=== PATIENT | female | born 1955 | race Caucasian/White ===

== ENCOUNTER 2018-03-24 11:39 | Inpatient (IN) | payer BC ==
[2018-03-24 11:51] VITALS: BMI 26.5
[2018-03-24] MEDS ORDERED: Sodium Chloride 0.9% 1,000 ML IV STA (12:18)
--- NOTE | 2018-03-24 12:38 | ED PDOC ---
Arrival/HPI - General Chief Complaint: Dizziness/Lightheaded Time Seen by Provider: 03/24/18 11:52 Historian: Patient - History of Present Illness Narrative History of Present Illness (Text): 03/24/18 12:13 A 62 year old female, whose past medical history includes hypertension and CAD, presents to the emergency department complaining of toothache. Patient reports has not been able to eat/drink due to pain. States having called her dentist and dentist prescribed medication and Lidocaine Gel for pain. Notes also experiencing dizziness when standing for a while. Patient denies any fever, chills, shortness of breath, chest pain, or any other complaints. Also, patient currently not experiencing tooth pain at this time. Mentions will have upper right molar tooth in the back of teeth pulled out next week. No PMD Past Medical History - Provider Review Nursing Documentation Reviewed: Yes - Infectious Disease Hx of Infectious Diseases: None - Tetanus Immunization Tetanus Immunization: Unknown - Reproductive Menopause: Yes - Cardiac Hx Pacemaker: No - Pulmonary Hx Respiratory Disorders: Yes (PLEURAL EFFUSION) - Neurological Hx Paralysis: No - HEENT Hx Difficulty Chewing: No - Renal Hx Renal Disorder: Yes Other/Comment: bladder stones - Endocrine/Metabolic Hx Endocrine Disorders: No - Hematological/Oncological Hx Anemia: Yes Hx Blood Transfusions: No - Integumentary Hx Dermatological Disorder: Yes Hx Psoriasis: Yes - Musculoskeletal/Rheumatological Hx Musculoskeletal Disorders: No - Gastrointestinal Hx Gastrointestinal Disorders: Yes (ASCITES) - Genitourinary/Gynecological Hx Genitourinary Disorders: No - Psychiatric Hx Emotional Abuse: No Hx Physical Abuse: No Hx Substance Use: No - Surgical History Other/Comment: colonoscopy - Anesthesia Hx Anesthesia Reactions: Yes (NAUSEA WEAKNESS;"WOKE UP DURING C SECTION") Hx Malignant Hyperthermia: No - Suicidal Assessment Feels Threatened In Home Enviroment: No Family/Social History - Physician Review Nursing Documentation Reviewed: Yes Family/Social History: No Known Family HX Smoking Status: Never Smoked Hx Alcohol Use: Yes ("GLASS OF WINE ON WEEKENDS") Hx Substance Use: No Hx Substance Use Treatment: No Allergies/Home Meds Allergies/Adverse Reactions: Allergies No Known Allergies Allergy (Verified 02/02/15 13:20) Home Medications: Home Meds Medication Instructions Recorded Confirmed Ascorbic Acid [Vitamin C 500 mg 1 tab PO DAILY 03/24/18 03/24/18 Tab] Furosemide [Lasix] 1 tab PO BID 03/24/18 03/24/18 Ibuprofen [Motrin Tab] 1 tab PO Q8H 03/24/18 03/24/18 Lidocaine Hydrochloride [Lidocaine 1 tsp PO PRN PRN 03/24/18 03/24/18 Hydrochloride Jelly 2% 5 ml] Sotalol [Betapace] 1 tab PO BID 03/24/18 03/24/18 Review of Systems - Physician Review All systems were reviewed & negative as marked: Yes - Review of Systems Constitutional: Other (toothache (currently not at this time here in the ER)). absent: Fevers, Night Sweats Respiratory: absent: SOB Cardiovascular: absent: Chest Pain Neurological: Dizziness (not room spinning sensation) Physical Exam Vital Signs Reviewed: Yes Vital Signs Temp Pulse Resp BP Pulse Ox 03/24/18 14:52 98 F 85 18 122/71 95 03/24/18 14:35 98 F 85 18 122/71 03/24/18 14:11 97.6 F 86 18 119/79 03/24/18 13:37 88 18 123/79 97 03/24/18 11:50 98.2 F 86 18 112/77 98 Temperature: Afebrile Blood Pressure: Normal Pulse: Regular Respiratory Rate: Normal Appearance: Positive for: Well-Appearing Pain Distress: None Mental Status: Positive for: Alert and Oriented X 3 - Systems Exam Head: Present: Atraumatic, Normocephalic Pupils: Present: PERRL Extroacular Muscles: Present: EOMI Conjunctiva: Present: Normal Mouth: Present: Moist Mucous Membranes Neck: Present: Normal Range of Motion Respiratory/Chest: Present: Clear to Auscultation, Good Air Exchange. No: Respiratory Distress, Accessory Muscle Use Cardiovascular: Present: Regular Rate and Rhythm, Normal S1, S2. No: Murmurs Abdomen: No: Tenderness, Distention, Peritoneal Signs Back: Present: Normal Inspection Upper Extremity: Present: Normal Inspection. No: Cyanosis, Edema Lower Extremity: Present: Normal Inspection. No: Edema Neurological: Present: GCS=15, CN II-XII Intact, Speech Normal Skin: Present: Warm, Dry, Normal Color. No: Rashes Psychiatric: Present: Alert, Oriented x 3, Normal Insight, Normal Concentration Medical Decision Making ED Course and Treatment: 03/24/18 12:18 Impression: 62 year old female with toothache and dizziness. No acute findings on physical exam. Plan: -- Head CT -- Chest X-ray -- Labs -- Urinalysis -- IV Fluids -- Reassess and disposition Progress Notes: EKG: Ordered, reviewed, and independently interpreted the EKG. Rate : 82 BPM Rhythm : Atrial Fibrillation Interpretation : No ST-segment elevations or depressions, no T-wave inversions, normal intervals. Comparison : No previous EKG for comparison. 03/24/2018 13:45 Chest X-ray IMPRESSION: Slightly limited study due to dense bilateral breast implants. no infiltrates. Marked cardiomegaly. Dictator: Theo Cali DO 03/24/18 14:[address] Brambila, whom agrees to admit patient. 03/24/2018 14:[address] IMPRESSION: No acute intracranial hemorrhage. Minor chronic periventricular white matter ischemic changes with several chronic appearing bilateraly basal nuclei lacunar type infarcts right greater than left. Moderate generalized volume loss with more localized bifrontal cortical atrophic changes. Dictator: Theo Cali DO - Lab Interpretations Lab Results: 03/24/18 12:30 03/24/18 12:30 Lab Results 03/24/18 12:30: Blood Type A POSITIVE, Antibody Screen Negative, Crossmatch See Detail, BBK History Checked Patient has bt 03/24/18 12:30: Sodium 136, Potassium 3.2 L, Chloride 105, Carbon Dioxide 16 L, Anion Gap 18, BUN 102 H, Creatinine 2.1 H, Est GFR ( Amer) 29, Est GFR ( Non-Af Amer) 24, Random Glucose 106, Calcium 9.3, Total Bilirubin 0.3, AST 32, ALT 26, Alkaline Phosphatase 82, Lactate Dehydrogenase 406, Total Creatine Kinase 35, Troponin I < 0.01 D, NT-Pro-B Natriuret Pep 8560 H, Total Protein 6.7, Albumin 3.7, Globulin 3.0, Albumin/Globulin Ratio 1.2 03/24/18 12:30: PT 13.7 H, INR 1.19 H 03/24/18 12:30: WBC 5.1 D, RBC 1.64 L, Hgb 6.0 L*, Hct 17.4 L*, MCV 106.1 H, MCH 36.6 H, MCHC 34.5, RDW 16.8 H, Plt Count 175, MPV 8.1, Gran % 69.6 H, Lymph % (Auto) 19.5 L, Trego % (Auto) 8.7 H, Eos % (Auto) 1.4 L, Baso % (Auto) 0.8, Gran # 3.53, Lymph # (Auto) 1.0 L, [place] # (Auto) 0.4, Eos # (Auto) 0.1, Baso # ( Auto) 0.04 I have reviewed the lab results: Yes - RAD Interpretation Radiology Orders: 03/24/18 12:18 HEAD W/O CONTRAST [CT] Stat CHEST PORTABLE [RAD] Stat - Medication Orders Current Medication Orders: Discontinued Medications Al Hydrox/Mg Hydrox/Simethicone (Maalox Plus 30 Ml) 30 ml PO DAILY PRN PRN Reason: Indigestion / Heartburn Sodium Chloride (Sodium Chloride 0.9%) 1,000 mls @ 999 mls/hr IV .Q1H1M STA Stop: 03/24/18 13:18 Last Admin: 03/24/18 12:40 Dose: 999 mls/hr eMAR Start Stop Document 03/24/18 12:40 SRE (Rec: 03/24/18 12:40 SRE [id number]) Intravenous Solution Start Date 03/24/18 Start Time 12:40 End Date 03/24/18 End time 13:40 Total Infusion Time 60 Dextrose/Sodium Chloride (Dextrose 5%/0.45% Ns 1000 Ml) 1,000 mls @ 100 mls/hr IV .Q10H [facility] Last Admin: 03/25/18 17:12 Dose: Pantoprazole Sodium (Protonix Inj) 40 mg IVP DAILY [facility] Last Admin: 03/25/18 13:49 Dose: 40 mg IVP Administration Document 03/25/18 13:49 RAFY (Rec: 03/25/18 13:49 RAFY [id number]) Charges for Administration # of IVP Administrations 1 Potassium Chloride (K-Dur 20 Meq Er Tab) 20 meq PO ONCE ONE Stop: 03/24/18 16:30 Last Admin: 03/24/18 17:33 Dose: 20 meq Sotalol HCl (Betapace) 80 mg PO BID [facility] Last Admin: 03/25/18 17:19 Dose: 80 mg - Scribe Statement The provider has reviewed the documentation as recorded by the Scott Garzon Provider Dianaibe Attestation: All medical record entries made by the Scott were at my direction and personally dictated by me. I have reviewed the chart and agree that the record accurately reflects my personal performance of the history, physical exam, medical decision making, and the department course for this patient. I have also personally directed, reviewed, and agree with the discharge instructions and disposition. Disposition/Present on Arrival - Present on Arrival Any Indicators Present on Arrival: No History of DVT/PE: No History of Uncontrolled Diabetes: No Urinary Catheter: No History of Decub. Ulcer: No History Surgical Site Infection Following: None - Disposition Have Diagnosis and Disposition been Completed?: Yes Diagnosis: Profound anemia, Near syncope, Atrial fibrillation with controlled ventricular response, Orthostatic dizziness, Dehydration Disposition: HOME/ ROUTINE Disposition Time: 14:13 Patient Plan: Admission, Telemetry Condition: FAIR
[2018-03-24 12:40] LABS: BASO # 0.04 K/mm3 (0.0-2.0); BASO % 0.8 % (0.0-3.0); EOS # 0.1 (0.0-0.7); EOS % 1.4 % (1.5-5.0); GRAN # 3.53 (1.4-6.5); GRAN % 69.6 % (50.0-68.0); LYMPH % 19.5 % (22.0-35.0); MEAN CELL VOLUME 106.1 fl (80.0-105.0); MEAN CORPUSCULAR HEMOGLOBIN 36.6 pg (25.0-35.0); MEAN CORPUSCULAR HGB CONC 34.5 g/dl (31.0-37.0); MEAN PLATELET VOLUME 8.1 fl (7.0-11.0); MONO # 0.4 (0.1-0.6); MONO % 8.7 % (1.0-6.0); RBC 1.64 10^6/uL (3.5-6.1); RED CELL DISTRIBUTION WIDTH 16.8 % (11.5-14.5); WHITE BLOOD COUNT 5.1 10^3/ul (4.5-11.0)
[2018-03-24 12:47] LABS: INR 1.19 (0.93-1.08); PROTHROMBIN TIME 13.7 SECONDS (9.4-12.5)
[2018-03-24 12:50] LABS: ALB/GLOB RATIO 1.2 (1.1-1.8); ALBUMIN 3.7 g/dL (3.0-4.8); ALT/SGPT 26 U/L (7-56); AST/SGOT 32 U/L (14-36); BLOOD UREA NITROGEN 102 mg/dL (7-21); CALCIUM 9.3 mg/dL (8.4-10.5); GFR AFRICAN-AMERICAN 29; GFR NON-AFRICAN AMERICAN 24
[2018-03-24 13:01] LABS: B-TYPE NATRIURETIC PEPTIDE 8560 pg/mL (0-450); TROPONIN I < 0.01 ng/mL
[2018-03-24 13:35] LABS: URINE BILIRUBIN NEGATIVE (NEGATIVE); URINE BLOOD NEGATIVE (NEGATIVE); URINE GLUCOSE (UA) NEGATIVE (NEGATIVE); URINE LEUKOCYTE ESTERASE TRACE Leu/uL (NEGATIVE); URINE PROTEIN 30 mg/dL (<30 mg/dL); URINE UROBILINOGEN 0.2 E.U./dL (<1 E.U./dL)
[2018-03-24 13:36] LABS: URINE APPEARANCE CLEAR (CLEAR); URINE COLOR YELLOW (YELLOW)
--- NOTE | 2018-03-24 13:47 | RAD ---
HISTORY: Dizziness COMPARISON: No prior. FINDINGS: In situ bilateral breast implants obscure the lung parenchyma in the mid to lower lung zones right greater than left LUNGS: No active pulmonary disease. PLEURA: No significant pleural effusion identified, no pneumothorax apparent. CARDIOVASCULAR: Cardiomegaly. . OSSEOUS STRUCTURES: No significant abnormalities. VISUALIZED UPPER ABDOMEN: Normal. OTHER FINDINGS: None. IMPRESSION: Slightly limited study due to dense bilateral breast implants. No infiltrates. Marked cardiomegaly.
[2018-03-24 13:48] LABS: URINE BACTERIA FEW (NEG); URINE EPITHELIAL CELLS 0 - 2 /hpf (0-5); URINE RBC NEGATIVE /hpf (0-2)
[2018-03-24] MEDS ORDERED: Morphine 4 mg/ml ISec ONE (14:02)
--- NOTE | 2018-03-24 14:54 | CT ---
PROCEDURE: CT HEAD WITHOUT CONTRAST. HISTORY: Dizziness COMPARISON: Comparison made with prior CT scan of the brain dated 02/03/2015. TECHNIQUE: Axial computed tomography images were obtained through the head/brain without intravenous contrast. Radiation dose: Total exam DLP = 816.83 mGy-cm. This CT exam was performed using one or more of the following dose reduction techniques: Automated exposure control, adjustment of the mA and/or kV according to patient size, and/or use of iterative reconstruction technique. FINDINGS: HEMORRHAGE: No acute parenchymal, subarachnoid or extra-axial hemorrhage. BRAIN: . No evidence of large acute infarct. There appears to be some very minimal chronic periventricular white matter ischemic changes with several chronic appearing bilateral basal nuclei lacunar type infarcts right greater than left.. Moderate generalized volume loss. In addition, there are localized bifrontal cortical atrophic changes. Vascular calcifications both carotid siphons. VENTRICLES: No obstructive hydrocephalus. CALVARIUM: There are no acute calvarial fracture seen. PARANASAL SINUSES: Minor mucosal thickening noted within a few anterior superior ethmoid air cells. . MASTOID AIR CELLS: Unremarkable as visualized. No inflammatory changes. OTHER FINDINGS: None. IMPRESSION: No acute intracranial hemorrhage. Minor chronic periventricular white matter ischemic changes with several chronic appearing bilateral basal nuclei lacunar type infarcts right greater than left. Moderate generalized volume loss with more localized bifrontal cortical atrophic changes. .
[2018-03-24] MEDS ORDERED: Potassium Chloride 20 mEq ER Tab PO ONE (16:29)
[2018-03-25] MEDS: Dextrose 5%/0.45% NS 1,000 ML IV SCH ×3 (01:28→17:12)
[2018-03-25] MEDS ORDERED: Alum-Mag Hydrox-Simethicone Susp (30 mL) PO PRN (01:48)
[2018-03-25 07:34] LABS: BASO # 0.03 K/mm3 (0.0-2.0); BASO % 0.6 % (0.0-3.0); EOS # 0.1 (0.0-0.7); EOS % 1.2 % (1.5-5.0); GRAN # 3.35 (1.4-6.5); GRAN % 66.5 % (50.0-68.0); MEAN CELL VOLUME 95.9 fl (80.0-105.0); MEAN CORPUSCULAR HEMOGLOBIN 32.6 pg (25.0-35.0); MEAN CORPUSCULAR HGB CONC 34.1 g/dl (31.0-37.0); MEAN PLATELET VOLUME 8.1 fl (7.0-11.0); MONO # 0.6 (0.1-0.6); MONO % 11.7 % (1.0-6.0); RBC 2.42 10^6/uL (3.5-6.1); RED CELL DISTRIBUTION WIDTH 23.2 % (11.5-14.5)
[2018-03-25 07:42] LABS: ALB/GLOB RATIO 1.2 (1.1-1.8); ALBUMIN 3.6 g/dL (3.0-4.8); CALCIUM 9.1 mg/dL (8.4-10.5)
[2018-03-25 07:43] LABS: HEMOGLOBIN 7.9 g/dL (12.0-16.0)
--- NOTE | 2018-03-25 07:55 | CARD ---
APPROVED REPORT EKG Measurement Heart [id number] <Conclusion> Atrial fibrillation Nonspecific ST and T wave abnormality, probably digitalis effect Abnormal ECG
[2018-03-25] MEDS ORDERED: Barium Sulfate Susp 2.1% w/v, 2.0% w/w 450 mL Bottle PO ONE (12:23)
[2018-03-25 13:43] VITALS: BP 134/80; PULSE 86; RESP 21; TEMP 98.4
--- NOTE | 2018-03-25 14:42 | CON ---
DATE: 03/25/2018 CARDIOLOGY CONSULTATION HISTORY OF PRESENT ILLNESS: The patient is 62-year-old woman who presents with marked weakness and was found to be markedly anemic with a hemoglobin of 6. PAST MEDICAL HISTORY: Includes chronic atrial fibrillation, in which she was lost to followup and has not been on anticoagulation although she does take Motrin frequently. The patient has a documented dilated cardiomyopathy with nonobstructive CAD documented by cardiac catheterization in January of 2015. In addition, the patient suffers from hypertension. She has been treated with Betapace. SOCIAL HISTORY: The patient does not smoke. REVIEW OF SYSTEMS: The 14 point review of systems is reviewed in detail. No angina. Positive weakness. Positive exertional dyspnea. Negative edema in the lower extremities. No dark stools noted. No hematuria. No nausea or vomiting. No bright red blood per rectum. PHYSICAL EXAMINATION: VITAL SIGNS: Blood pressure is 133/91, heart rate in the 70s. NECK: Negative JVD. LUNGS: Without rales. HEART: Reveal S1, S2. EXTREMITIES: Without edema. DATA: EKG shows atrial fibrillation with nonspecific ST-T changes. BUN and creatinine is 92/2.1, hemoglobin after transfusion is now 7.9. IMPRESSION: 1. Marked anemia. 2. Dyspnea secondary to her anemia. 3. Chronic atrial fibrillation, in which the patient has been noncompliant. 4. Hypertension. 5. Dilated cardiomyopathy. Given these findings, I have ordered transfusion of packed red blood cells again. The patient will need an investigation to her anemia including ruling out gastrointestinal blood loss. The patient states she will not stay and she will sign out against medical advice. After extensive discussion, she has agreed to take one more unit of packed red blood cells. She will discuss with Dr. Brambila further plans. Camilo Long MD
[2018-03-25 15:30] LABS: HEMOGLOBIN 8.9 g/dL (12.0-16.0)
--- NOTE | 2018-03-25 15:38 | CON ---
DATE: 03/25/2018 REQUESTING PHYSICIAN: Zelalem Brambila MD REASON FOR CONSULTATION: I have been asked to see this 62-year-old female with a history of cirrhosis of the liver, chronic recurrent anemia, cardiomyopathy, hypertension, who comes to the hospital with several days of dizziness, weakness, shortness of breath on exertion and toothache. The patient is actually scheduled to have a right molar upper tooth removed by a dentist next week. In the emergency room, routine blood work showed the patient to be profoundly anemic with a hemoglobin of 6. She denies any chest pain, nausea, vomiting, melena or rectal bleeding. Her bowel movements have been green. She did have a colonoscopy several years ago. Etiology of her cirrhosis has been unclear with negative hepatitis serology as well as negative history of alcoholism. She is not on any anticoagulants or platelet inhibitors. PAST MEDICAL HISTORY: Again is notable for hypertension, cryptogenic cirrhosis and cardiomyopathy. She had a cardiac catheterization less than a year ago. PAST SURGICAL HISTORY: Notable for D&C. SOCIAL HISTORY: She denies cigarette smoking. She consumes alcohol on a social basis. FAMILY HISTORY: Noncontributory. REVIEW OF SYSTEMS: A 14-point review of systems is notable for lightheadedness, dizziness and dyspnea on exertion. PHYSICAL EXAMINATION: GENERAL: Obese female lying in bed in no acute distress. VITAL SIGNS: Reveal temperature of 98, blood pressure 130/80, heart rate is 77. HEENT: Reveal sclerae to be white. Conjunctivae pale. NECK: Supple. CHEST: Reveal lungs to be clear. HEART: Reveals a irregularly irregular rate. There is no murmur. ABDOMEN: Soft, nontender. EXTREMITIES: Show no edema. LABORATORY DATA: Reveal white blood cell count 5, hemoglobin 7.9, platelet count 153,000. Chemistries reveal potassium of 3.2, BUN 92, creatinine 2.1, magnesium 1.4. AST, ALT, alkaline phosphatase, total bilirubin are all normal. Stool for occult blood is positive. IMPRESSION: Anemia with heme-positive stool, rule out chronic gastrointestinal blood loss. There is no clinical evidence of active gastrointestinal bleeding. She does have other comorbidities including cirrhosis of the liver and cardiomyopathy. RECOMMENDATIONS: 1. Transfuse another unit of packed blood cells. Her hemoglobin is 7.9 after 2 units of packed blood cells. 2. I will request a CT scan of the abdomen and pelvis with oral contrast only to evaluate her cirrhosis as well as to rule out an intra-abdominal malignancy. 3. We will schedule the patient for an upper endoscopy for the morning. 4. We start the patient on Protonix 40 mg IV every 12 hours. Conner Kate MD
--- NOTE | 2018-03-25 15:45 | CT ---
PROCEDURE: CT abdomen pelvis dated 03/17/2018 HISTORY: Cirrhosis. Anemia. COMPARISON: Comparison made with prior CT scan abdomen pelvis 01/14/2015 TECHNIQUE: Contiguous helical/transaxial images of the abdomen and pelvis performed following oral contrast material. . Intravenous contrast material not injected. Additional 2D sagittal and coronal reformats generated. This CT exam was performed using one or more of the following dose reduction techniques: Automated exposure control, adjustment of the mA and/or kV according to patient size, and/or use of iterative reconstruction technique. Total exam DLP = 414.82 mGy-cm. FINDINGS: LOWER THORAX: Heart is markedly enlarged. Trace pericardial effusion. . Minor scarring changes seen in the left lung base. No evidence of effusion or basilar pneumothorax. LIVER: The liver exhibits nodular contour surface consistent with this patient's history of cirrhosis. Liver is enlarged measuring nearly 20 cm in CC dimension. No obvious hepatic masses or collections seen on this noncontrast study. Moderate amount of ascites present within the abdomen and pelvis. GALLBLADDER AND BILE DUCTS: The gallbladder is incompletely distended which may in part be due to nonfasting state however given the presence of intraluminal gallbladder calculi, the possibility of chronic cholecystitis cannot be excluded. Clinical correlation recommended. PANCREAS: The pancreas appears unremarkable without masses collections or calcifications. SPLEEN: Spleen exhibits normal size and attenuation pattern without masses collections or calcifications. ADRENALS: The adrenal glands are slightly enlarged. Rule out mild adrenal hyperplasia. KIDNEYS AND URETERS: Kidneys demonstrate symmetric nephrograms. No evidence of nephrolithiasis or hydronephrosis. BLADDER: Urinary bladder is incompletely distended which in part accounts thick-walled appearance however the possibility of a cystitis not excluded. Correlation with urinalysis. REPRODUCTIVE: Calcified uterine fibroids again noted. APPENDIX: Unremarkable. BOWEL: Evaluation of the bowel is limited due to incomplete opacification. The stomach is incompletely distended which in part accounts for thick-walled appearance. Gastritis or other intrinsic/invasive wall lesion not excluded. Clinical correlation recommended. Visualized loops of small bowel exhibit normal contour and caliber. No evidence of acute mechanical small bowel obstruction. Most of the large bowel is relatively collapsed. There are scattered colonic diverticula seen along the sigmoid colon. Evaluation for acute diverticulitis limited due to the presence of ascites fluid. Clinic correlation recommended. PERITONEUM: Moderately large amount of abdominal and pelvic ascites. No gross free intraperitoneal air. Interval increase in size left inguinal hernia which contains ascites fluid. LYMPH NODES: Unremarkable. No enlarged lymph nodes. VASCULATURE: Unremarkable. No aortic aneurysm. BONES: Minor multilevel degenerative spondylosis of the lower thoracic and lumbar spine. Minor on levoscoliosis centered at the L2-L3 level. OTHER FINDINGS: None. IMPRESSION: Hepatomegaly with additional findings of cirrhosis. The Moderate to large amount of abdominal and pelvic ascites. Cholelithiasis. Rule out chronic cholecystitis. Wall thickening of the stomach in part due to incomplete distention however gastritis or other intrinsic/invasive wall lesion not excluded. Clinical correlation recommended. Calcified uterine fibroids. Wall thickening urinary bladder likely in part due to incomplete distention however cystitis not excluded. Marked cardiomegaly. Trace pericardial effusion.
[2018-03-25 16:18] VITALS: O2SAT 95
--- NOTE | 2018-03-26 00:18 | HP ---
HISTORY OF PRESENT ILLNESS: The patient is a 62 year old woman with a past medical history of alcoholic cirrhosis and anemia of chronic disease (baseline Hb 10) who presented for evaluation of a several day history of lightheadedness, fatigue, pallor and near syncope. The patient reports that for the past 4 days she has been experiencing the aforementioned symptoms. Prior to onset of her symptoms she had dental work done and was taking Ibuprofen for relief of pain. Approximately 2 days into taking the Ibuprofen she developed mild epigastric discomfort associated with bloating and nausea. She then developed loose stools that were dark in color but denied bright red blood per rectum or hematemesis. Given her worsening lightheadedness, she opted for ED evaluation. Examination in the ED found her to be afebrile and hemodynamically stable however laboratory studies disclosed anemia with a hemoglobin of 6. The patient was typed and cross-matched for 2 units PRBC's and was admitted for continued management of symptomatic anemia. PAST MEDICAL HISTORY: As per HPI, also paroxysmal AFib, HTN, CAD and psoriasis. PAST SURGICAL HISTORY: D&C, breast implantation and transurethral resection of bladder tumor. ALLERGIES: NKDA. MEDICATIONS: Sotalol 80 mg p.o. b.i.d. and Lasix 20 mg p.o. b.i.d. FAMILY HISTORY: Noncontributory. SOCIAL HISTORY: The patient reports a former daily alcohol use but denies smoking history or illicit drug abuse. REVIEW OF SYSTEMS: A 14-point review of systems is negative except as per HPI. PHYSICAL EXAMINATION VITAL SIGNS: Temperature 98, pulse 77, blood pressure 130/80, respiratory rate 18, oxygen saturation 99% on room air. GENERAL: No apparent distress. HEENT: PERRL. EOMI. No scleral icterus. Conjunctival pallor is noted. NECK: No JVD. LUNGS: Clear to auscultation. CARDIOVASCULAR: Irregularly irregular. Normal S1 and S2. ABDOMEN: Normoactive bowel sounds. Soft, tender to palpation to epigastrum and mildly distended. EXTREMITIES: No edema. NEUROLOGIC: Awake, alert and oriented x 3. No focal motor deficits. No asterixis. LABORATORY DATA: WBC 5, hemoglobin 7.9, hematocrit 23, platelets 153. Sodium 138, potassium 3.2, chloride 108, bicarb 16, BUN 92, creatinine 2.1, glucose 110. Stool occult blood positive. ASSESSMENT: The patient is a 62 year old woman with a past medical history of alcoholic cirrhosis, CAD, HTN, CAD and anemia of chronic disease who was admitted for management of symptomatic anemia. PLAN: 1. Symptomatic macrocytic anemia. The patient is noted to have a positive stool occult blood. She is s/p transfusion of 2 units of PRBCs. Input from Dr. Kate noted and appreciated and the patient has been started on Protonix 40 mg IV daily. We will continue to monitor CBC daily and transfuse as needed. A CT of the abdomen and pelvis is ordered and pending. 2. Alcoholic cirrhosis. As above, input from Lavinia noted and a CT of the abdomen and pelvis is pending. 3. CAD. Input from Dr. Sharma appreciated. 4. AFib. Continue Sotalol 80 mg p.o. b.i.d. 5. Anemia of chronic disease. As above, labs demonstrate an acute drop in the patient's hemoglobin and her baseline hemoglobin appears to be around 10. She is status post transfusion of 2 units of PRBCs. We will continue to monitor CBC daily. 6. Hypertension. Continue Sotalol 80 mg p.o. b.i.d. 7. Prophylaxis. Continue Protonix for GI prophylaxis. DVT prophylaxis not indicated as the patient is ambulatory. CODE STATUS: Full code. Zelalem Brambila MD [facility]
--- NOTE | 2018-03-26 09:00 | CON ---
DATE: 03/24/2018 LOCATION: The patient in room 272, bed 2. REASON FOR CONSULTATION: Dizziness, atrial fibrillation, cardiomyopathy, severe anemia. This consult is being dictated on behalf of Dr. Long, whom I am covering. HISTORY OF PRESENT ILLNESS: This is a 62-year-old female, who is a known case of atrial fibrillation, cardiomyopathy, cirrhosis of liver, hypertension, admitted with a seizure. Since last two days she has been feeling very dizzy and weak and also gets shortness of breath on exertion. Patient denies any hematemesis, melena, any abdominal pain, any nausea or vomiting. She states recently for two weeks, she has a problem with the teeth and she was not able to eat well. Patient denies any chest pain or palpitation. Patient denies any PND. PAST MEDICAL HISTORY: Includes her hypertension, ascites, she has paracentesis in 2014, cirrhosis of liver. Patient also had cardiac catheterization on 02/12/2015 and it shows left ventricular ejection fraction 35%, normal coronaries, and the catheterization note states that the patient will be on anticoagulation, ANIVAL inhibitor, and beta sita. The patient presently she is on only sotalol twice a day and she is forced to take Lasix twice a day, but patient states that she only takes off and on when she feel like. PERSONAL HISTORY: Denies smoking. Denies drinking. MEDICATIONS: At home, patient was taking ibuprofen and sotalol b.i.d. and Lasix is supposed to be b.i.d. but she is taking only when she it. ALLERGIES: PATIENT DENIES ANY ALLERGIES. REVIEW OF SYSTEMS: All the systems reviewed. Positives mentioned in the history, others were negative. PHYSICAL EXAMINATION: VITAL SIGNS: Blood pressure 125/69, respirations 16, pulse 88, temperature 98.6. HEENT: Head: Normocephalic. Eyes: Pupils normal. Conjunctivae pale. NECK: JVP low. Carotids equal. THORAX: AP diameter normal. LUNGS: Clear. CARDIOVASCULAR: S1 and S2. ABDOMEN: Soft abdomen. No tenderness. No organomegaly. EXTREMITIES: No clubbing, no cyanosis. LABORATORY DATA: WBC 5.1, hemoglobin 6, hematocrit 17.4, platelets 175. Sodium 136, potassium 3.2, BUN 102, and creatinine 2.1. AST and ALT normal, albumin 3.7, [id number] peptide 8560. DIAGNOSTIC DATA: Chest x-ray was clear. Troponin less than 0.01. EKG showed atrial fibrillation, moderate rate, nonspecific ST-T changes. DIAGNOSES: Severe anemia; dehydration; hypochloremia; cardiomyopathy; hypertension; atrial fibrillation, rate controlled; cirrhosis of liver. PLAN: Two units of blood transfusion had been ordered. We will continue sotalol 80 b.i.d. We will hold Lasix because patient looks dehydrated with BUN 102 and creatinine 2.1. We will repeat labs in the morning and we will follow. At present cardiac status seemed to be stable clinically; patient not in CHF, also is clear. Carlos Sharma MD
== END 2018-03-25 18:06 | disposition left against medical advice (07) | DRG 812 ==
LOC: ED 11:39 → ERH 13:04 → 2RSO 15:17
PROVIDERS: ADMIT Student in an Organized Health Care Education/Training Program; ATTEND Student in an Organized Health Care Education/Training Program
PROC: 30233N1 Transfusion of Nonautologous Red Blood Cells into Peripheral Vein, Percutaneous Approach (ICD-10-PCS; principal; 2018-03-24)
DX: D64.9 Anemia, unspecified (principal); E86.0 Dehydration; I42.0 Dilated cardiomyopathy; K70.31 Alcoholic cirrhosis of liver with ascites; I25.10 Atherosclerotic heart disease of native coronary artery without angina pectoris; I10 Essential (primary) hypertension; I48.0 Paroxysmal atrial fibrillation; L40.9 Psoriasis, unspecified; I48.2 Chronic atrial fibrillation; Z91.19 Patient's noncompliance with other medical treatment and regimen; Z98.82 Breast implant status

== ENCOUNTER 2018-08-19 11:49 | Inpatient (IN) | payer BC ==
--- NOTE | 2018-08-19 12:43 | ED PDOC ---
Arrival/HPI - General Chief Complaint: Weakness/Neurological Deficit Time Seen by Provider: 08/19/18 12:07 Historian: Patient - History of Present Illness Narrative History of Present Illness (Text): 08/19/18 12:31 63 year old female, with past medical history of Cirrhosis and CAD, afib on b- sita, presents to the ED via EMS complaining of dizziness and generalized weakness since 3 days. Patient reports onset of symptoms after recent diagnosis of gastritis by PMD for nausea and vomiting. Patient denies any recent episodes of nausea or vomiting but reports an episode non-bloody diarrhea. Patient states worsening of dizziness with sudden movement such as getting up quickly from sitting. Patient believes her symptoms may be secondary to dehydration and requests IV fluids. Patient denies any other associated somatic complaints. Patient denies any fever, chills, nausea, vomiting, abdominal pain, chest pain, SOB, headache, neck pain, back pain or any other complaints. Patient denies alcohol use. PMD: Dr. Brambila Time/Duration: < week Symptom Onset: Gradual Symptom Course: Unchanged Activities at Onset: Light Context: Home Past Medical History - Provider Review Nursing Documentation Reviewed: Yes - Infectious Disease Hx of Infectious Diseases: None - Tetanus Immunization Tetanus Immunization: Unknown - Cardiac Hx Pacemaker: No - Pulmonary Hx Respiratory Disorders: Yes (PLEURAL EFFUSION) - Neurological Hx Paralysis: No - HEENT Hx Difficulty Chewing: No - Renal Hx Renal Disorder: Yes Other/Comment: bladder stones - Endocrine/Metabolic Hx Endocrine Disorders: No - Hematological/Oncological Hx Anemia: Yes Hx Blood Transfusions: No - Integumentary Hx Dermatological Disorder: Yes Hx Psoriasis: Yes - Musculoskeletal/Rheumatological Hx Musculoskeletal Disorders: No - Gastrointestinal Hx Gastrointestinal Disorders: Yes (ASCITES) - Genitourinary/Gynecological Hx Genitourinary Disorders: No - Psychiatric Hx Emotional Abuse: No Hx Physical Abuse: No Hx Substance Use: No - Surgical History Other/Comment: colonoscopy - Anesthesia Hx Anesthesia: Yes Hx Anesthesia Reactions: Yes (NAUSEA WEAKNESS;"WOKE UP DURING C SECTION") Hx Malignant Hyperthermia: No - Suicidal Assessment Feels Threatened In Home Enviroment: No Family/Social History - Physician Review Nursing Documentation Reviewed: Yes Family/Social History: No Known Family HX Smoking Status: Never Smoked Hx Alcohol Use: Yes ("GLASS OF WINE ON WEEKENDS") Hx Substance Use: No Hx Substance Use Treatment: No Allergies/Home Meds Allergies/Adverse Reactions: Allergies No Known Allergies Allergy (Verified 02/02/15 13:20) Home Medications: Home Meds Medication Instructions Recorded Confirmed Ascorbic Acid [Vitamin C 500 mg 1 tab PO DAILY 03/24/18 03/24/18 Tab] Furosemide [Lasix] 1 tab PO BID 03/24/18 03/24/18 Ibuprofen [Motrin Tab] 1 tab PO Q8H 03/24/18 03/24/18 Lidocaine Hydrochloride [Lidocaine 1 tsp PO PRN PRN 03/24/18 03/24/18 Hydrochloride Jelly 2% 5 ml] Sotalol [Betapace] 1 tab PO BID 03/24/18 03/24/18 Review of Systems - Physician Review All systems were reviewed & negative as marked: Yes - Review of Systems Constitutional: absent: Fevers Respiratory: absent: SOB, Cough Cardiovascular: absent: Chest Pain Gastrointestinal: absent: Abdominal Pain, Diarrhea, Nausea, Vomiting Musculoskeletal: absent: Back Pain, Neck Pain Neurological: Dizziness. absent: Headache Physical Exam Vital Signs Reviewed: Yes Vital Signs Temp Resp BP 08/19/18 12:19 98.1 F 18 108/66 Temperature: Afebrile Blood Pressure: Normal Pulse: Regular Respiratory Rate: Normal Appearance: Positive for: Well-Appearing, Non-Toxic, Comfortable Pain Distress: None Mental Status: Positive for: Alert and Oriented X 3 - Systems Exam Head: Present: Atraumatic, Normocephalic Pupils: Present: PERRL Extroacular Muscles: Present: EOMI Conjunctiva: Present: Normal Mouth: Present: Moist Mucous Membranes Neck: Present: Normal Range of Motion. No: Meningeal Signs, MIDLINE TENDERNESS Respiratory/Chest: Present: Clear to Auscultation, Good Air Exchange. No: Respiratory Distress, Accessory Muscle Use Cardiovascular: Present: Regular Rate and Rhythm, Normal S1, S2. No: Murmurs Abdomen: No: Tenderness, Distention, Peritoneal Signs Rectal: Present: Other (pt deferred) Back: Present: Normal Inspection. No: CVA Tenderness, Midline Tenderness Upper Extremity: Present: Normal Inspection. No: Cyanosis, Edema Lower Extremity: Present: Normal Inspection, NORMAL PULSES, Capillary Refill < 2 s. No: Edema, CALF TENDERNESS, Cyanosis Neurological: Present: GCS=15, CN II-XII Intact, Speech Normal, Normal Sensory Function, Normal Cerebellar Funct Skin: Present: Warm, Dry, Normal Color. No: Rashes Psychiatric: Present: Alert, Oriented x 3, Normal Insight, Normal Concentration Medical Decision Making ED Course and Treatment: 08/19/18 12:31 Impression: 63 year old female presents to the ED complaining of lightheadedness. 63 yr old female w/ hx of Cirrhosis, CAD, Afib p/w dizziness- described as lightheadedness after recent n/v episodes diagnosed as gastritis by PMD. Normal neuro exam, abd non-ttp, no asterixis or sob, abd non-distended from normal. She denies any etoh use. Recent diarrhea, pt notes orthostatic like symptoms. Likely dehydration related. No dark or bloody stool. will check basic labs and seek fluids and reassessment. Differential Diagnosis included but are not limited to: Dehydration Plan: -- Labs -- EKG -- CXR -- IV Fluids -- UA -- Reassess and disposition Prior Visits: Notes and results from previous visits were reviewed. Progress Notes: 08/19/18 13:33 EK, AFib, no Stemi No dig use. Pt has a known hx of afib 08/19/18 13:45 Patient was made aware of hemoglobin of 4 and was asked to do a guaiac test to r/o GI bleed. Patient persistently refuses guaiac test. 08/19/18 13:57 Given elevated BUN and refusal for guaic: will order protonix bolus and gtt Pt denies any trauma. Abdm non-ttp. Pt also notes she would not like any sort of cat scan. Appreciate consult w/ Dr. Shena Brambila: to be admitted to his service under tele: we are to consult Dr. Kate (GI)- consult placed. stable appearance, in NAD with VSS - RAD Interpretation Narrative RAD Interpretations (Text): 08/19/18 13:37 CXR reviewed by radiologist, shows: FINDINGS: LUNGS: No active pulmonary disease. PLEURA: No significant pleural effusion identified, no pneumothorax apparent. CARDIOVASCULAR: Atherosclerotic calcifications identified primarily aortic arch. Cardiomegaly. No evidence of acute, significant cardiovascular disease. OSSEOUS STRUCTURES: No significant abnormalities. VISUALIZED UPPER ABDOMEN: Normal. OTHER FINDINGS: None. IMPRESSION: No active disease. No significant interval change compared to the prior examination(s). Radiology Orders: 08/19/18 12:31 CHEST PORTABLE [RAD] Stat Machine Sign Writer: Radiologist - Medication Orders Current Medication Orders: Sodium Chloride (Sodium Chloride 0.9%) 1,000 mls @ 75 mls/hr IV .[id number] DOUGLAS - Scribe Statement The provider has reviewed the documentation as recorded by the Scribe Jericho Garnica. All medical record entries made by the Scribe were at my direction and personally dictated by me. I have reviewed the chart and agree that the record accurately reflects my personal performance of the history, physical exam, medical decision making, and the department course for this patient. I have also personally directed, reviewed, and agree with the discharge instructions and disposition. Disposition/Present on Arrival - Present on Arrival Any Indicators Present on Arrival: No History of DVT/PE: No History of Uncontrolled Diabetes: No Urinary Catheter: No History of Decub. Ulcer: No History Surgical Site Infection Following: None - Disposition Have Diagnosis and Disposition been Completed?: Yes Diagnosis: Anemia Disposition: HOSPITALIZED Disposition Time: 13:57 Condition: GUARDED Forms: [employer] ([employer])
--- NOTE | 2018-08-19 13:04 | RAD ---
Date of service: 08/19/2018 HISTORY: lightheaded COMPARISON: 03/24/2018 FINDINGS: LUNGS: No active pulmonary disease. PLEURA: No significant pleural effusion identified, no pneumothorax apparent. CARDIOVASCULAR: Atherosclerotic calcifications identified primarily aortic arch. Cardiomegaly. No evidence of acute, significant cardiovascular disease. OSSEOUS STRUCTURES: No significant abnormalities. VISUALIZED UPPER ABDOMEN: Normal. OTHER FINDINGS: None. IMPRESSION: No active disease. No significant interval change compared to the prior examination(s).
[2018-08-19] MEDS: Sodium Chloride 0.9% 1,000 ML IV SCH (13:15)
[2018-08-19 13:37] LABS: BASO # 0.02 K/mm3 (0.0-2.0); BASO % 0.3 % (0.0-3.0); EOS % 0.4 % (1.5-5.0); GRAN # 5.79 (1.4-6.5); GRAN % 75.9 % (50.0-68.0); LYMPH # 1.2 (1.2-3.4); LYMPH % 15.9 % (22.0-35.0); MEAN CELL VOLUME 119.4 fl (80.0-105.0); MEAN CORPUSCULAR HEMOGLOBIN 38.9 pg (25.0-35.0); MEAN CORPUSCULAR HGB CONC 32.6 g/dl (31.0-37.0); MEAN PLATELET VOLUME 8.9 fl (7.0-11.0); MONO # 0.6 (0.1-0.6); MONO % 7.5 % (1.0-6.0); RBC 1.08 10^6/uL (3.5-6.1); RED CELL DISTRIBUTION WIDTH 18.6 % (11.5-14.5); WHITE BLOOD COUNT 7.6 10^3/ul (4.5-11.0)
[2018-08-19 13:40] LABS: HEMOGLOBIN 4.2 g/dL (12.0-16.0)
[2018-08-19 13:47] LABS: ALB/GLOB RATIO 1.2 (1.1-1.8); ALBUMIN 3.4 g/dL (3.0-4.8); CALCIUM 8.8 mg/dL (8.4-10.5)
[2018-08-19 13:58] LABS: TROPONIN I 0.03 ng/mL
[2018-08-19] MEDS: Pantoprazole 40mg/100mL NS 40 MG/100 ML BAG IVPB SCH ×3 (14:08→22:36)
--- NOTE | 2018-08-19 14:32 | CARD ---
APPROVED REPORT Date of service: 08/19/2018 EKG Measurement Heart [id number] <Conclusion> Atrial fibrillation ST & T wave abnormality c/w ischemia Prolonged QT
[2018-08-19 16:21] LABS: INR 1.08; PARTIAL THROMBOPLASTIN TIME 23.7 Seconds (25.1-36.5); PROTHROMBIN TIME 12.3 SECONDS (9.4-12.5)
[2018-08-19 18:51] LABS: URINE APPEARANCE CLOUDY (CLEAR); URINE BILIRUBIN NEGATIVE (NEGATIVE); URINE BLOOD MODERATE (NEGATIVE); URINE COLOR LIGHT YELLOW (YELLOW); URINE GLUCOSE (UA) NEGATIVE (NEGATIVE); URINE LEUKOCYTE ESTERASE LARGE Leu/uL (NEGATIVE); URINE PROTEIN NEGATIVE mg/dL (<30 mg/dL); URINE UROBILINOGEN 0.2 E.U./dL (<1 E.U./dL)
[2018-08-19 19:19] LABS: URINE AMORPHOUS SEDIMENT FEW; URINE BACTERIA MANY (NEG); URINE RBC 20 - 25 /hpf (0-2); URINE WBC 25 - 30 /hpf (0-6)
[2018-08-19 23:20] VITALS: BMI 31.8
[2018-08-19] MEDS ORDERED: Influenza Vaccine 60 mcg/0.5 mL SYR (4YR UP) IM ONE (23:20)
[2018-08-19] MEDS ORDERED: Pneumococcal 23-Valent Vaccine IM ONE (23:20)
[2018-08-20] MEDS ORDERED: DiphenhydrAMINE 50 mg/ml Inj IVP ONE ×2 (00:36→02:36)
[2018-08-20] MEDS: Pantoprazole 40mg/100mL NS 40 MG/100 ML BAG IVPB SCH ×7 (01:00→21:18)
[2018-08-20] MEDS: Sodium Chloride 0.9% 1,000 ML IV SCH ×4 (03:00→22:30)
[2018-08-20 06:23] LABS: BASO # 0.03 K/mm3 (0.0-2.0); BASO % 0.6 % (0.0-3.0); EOS % 0.4 % (1.5-5.0); GRAN # 3.2 (1.4-6.5); GRAN % 68.9 % (50.0-68.0); LYMPH # 0.8 (1.2-3.4); LYMPH % 17.8 % (22.0-35.0); MEAN CORPUSCULAR HGB CONC 32.9 g/dl (31.0-37.0); MEAN PLATELET VOLUME 9.1 fl (7.0-11.0); MONO # 0.6 (0.1-0.6); MONO % 12.3 % (1.0-6.0); RBC 2.47 10^6/uL (3.5-6.1); WHITE BLOOD COUNT 4.7 10^3/ul (4.5-11.0)
[2018-08-20 06:36] LABS: HEMOGLOBIN 7.9 g/dL (12.0-16.0); MEAN CELL VOLUME 97.2 fl (80.0-105.0)
[2018-08-20 06:42] LABS: ALBUMIN 2.9 g/dL (3.0-4.8); CALCIUM 8.3 mg/dL (8.4-10.5)
[2018-08-20] MEDS ORDERED: Potassium Chloride 20 mEq ER Tab PO ONE (07:36)
[2018-08-20] MEDS ORDERED: Albuterol-Ipratrop 3 mg / 0.5 (3 ml) UD IH PRN (09:47)
[2018-08-20 10:55] LABS: HEMOGLOBIN 9.1 g/dL (12.0-16.0); MEAN CELL VOLUME 95.5 fl (80.0-105.0); MEAN CORPUSCULAR HEMOGLOBIN 31.4 pg (25.0-35.0); MEAN CORPUSCULAR HGB CONC 32.9 g/dl (31.0-37.0); MEAN PLATELET VOLUME 8.7 fl (7.0-11.0); RBC 2.9 10^6/uL (3.5-6.1); RED CELL DISTRIBUTION WIDTH 24.7 % (11.5-14.5); WHITE BLOOD COUNT 5.5 10^3/ul (4.5-11.0)
[2018-08-20] MEDS ORDERED: Etomidate 20 mg/10ml Inj IV ONE (11:38)
[2018-08-20] MEDS ORDERED: ePHEDrine 50 mg/ml Inj ONE (11:38)
[2018-08-20] MEDS ORDERED: Propofol 10 mg/ml Inj (20 ML) ONE (11:46)
[2018-08-20 13:22] LABS: FOLATE 12.6 ng/mL
--- NOTE | 2018-08-20 20:48 | HP ---
HISTORY OF PRESENT ILLNESS: The patient is a 63-year-old woman with a past medical history of alcoholic cirrhosis and anemia of chronic disease (baseline Hb 9-10) who presented for evaluation of a 4 day history of lightheadedness, fatigue, pallor and near syncope. The patient states that approximately 4 days ago she began to experience symptoms of lightheadedness and near syncope with positional changes. She also reported 2 episodes of hematemesis and multiple episodes of dark tarry stools. The patient was previously hospitalized for suspected GI bleed but signed out AMA prior to GI evaluation after receiving 2 units of PRBC's. On arrival to the ED on this visit she was noted to be hemodynamically stable however laboratory studies demonstrated a Hb of 4.2. She was started on a Protonix drip, type and crossmatched for 4 units of PRBC's and admitted to the telemetry ocampo for continued management of symptomatic anemia secondary to suspected upper GI bleed. PAST MEDICAL HISTORY: As per HPI, also paroxysmal AFib, hypertension, hypothyroidism, CKD stage II (baseline Cr 2) and psoriasis. PAST SURGICAL HISTORY: D&C, , breast augmentation and transurethral resection of bladder tumor. ALLERGIES: NKDA. MEDICATIONS: Sotalol 80 mg p.o. b.i.d., Lasix 20 mg p.o. b.i.d. and Feosol 325 mg p.o. t.i.d. FAMILY HISTORY: Noncontributory. SOCIAL HISTORY: The patient reports former daily alcohol use but presently endorses occasional alcohol consumption. She denies smoking history or illicit drug abuse. REVIEW OF SYSTEMS: A 12-point review of systems is negative except as per HPI. PHYSICAL EXAMINATION VITAL SIGNS: Temperature 97.8, pulse 77, blood pressure 127/53, respiratory rate 16, and oxygen saturation 96% on room air. GENERAL: No apparent distress. HEENT: PERRL. EOMI. No scleral icterus. Conjunctival pallor is noted. NECK: No JVD. LUNGS: Clear to auscultation. CARDIOVASCULAR: Regular rate and rhythm. Normal S1 and S2. ABDOMEN: Normoactive bowel sounds. Soft and tender to palpation to epigastrium with voluntary guarding. RECTAL: The patient refused. EXTREMITIES: No edema. NEUROLOGIC: Awake, alert, and oriented x 3. No focal motor deficits. LABORATORY DATA: WBC 4.7, hemoglobin 7.9, hematocrit 24, and platelets 119. Sodium 136, potassium 3, chloride 107, bicarb 18, BUN 102, creatinine 2.4, glucose 85. TSH 5.66. ASSESSMENT: The patient is a 63-year-old woman with a past medical history of alcoholic cirrhosis, anemia of chronic disease and paroxysmal AFib who was admitted for management of severe symptomatic anemia suspected upper GI bleed. PLAN: 1. Severe symptomatic anemia, likely secondary to upper GI bleed. The patient is receiving her 4th unit of PRBC's and has demonstrated an appropriate response in hemoglobin. We will check a post-transfusion CBC. Continue with Protonix drip. GI evaluation with Dr. Kate is pending. 2. CHARLIE on CKD stage II. Continue with IV fluid hydration consisting of normal saline at 75 mL per hour. Continue to monitor strict I&O's and renally dose all medications. 3. Alcoholic cirrhosis. The patient appears clinically stable and demonstrates no evidence of decompensated cirrhosis. 4. Paroxysmal AFib. The patient remains in normal sinus rhythm and rate controlled. Sotalol 80 mg p.o. b.i.d. is on hold given her borderline low blood pressure on admission in the setting of severe symptomatic anemia. We will continue to monitor hemodynamics and resume medications as needed. 5. Hypertension. As above, Sotalol remains on hold given her presentation with a borderline blood pressure. 6. Hypothyroidism. Resume Synthroid 50 mcg p.o. daily. 7. Hypokalemia, will replete. 8. Prophylaxis. Continue Protonix for GI prophylaxis. DVT prophylaxis not indicated as the patient is ambulatory. CODE STATUS: Full code. Zelalem Brambila MD MTDWes
--- NOTE | 2018-08-20 21:05 | CON ---
DATE: 08/20/2018 REQUESTING PHYSICIAN: Dr. Brambila. REASON FOR CONSULTATION: I have been asked to see this 63-year-old female with known history of cryptogenic cirrhosis, atrial fibrillation, cardiomyopathy, who comes to the hospital with generalized weakness, dizziness, and difficulty in ambulation. Routine blood work in the emergency room showed the patient to be profoundly anemic with a hemoglobin of 4.2. The patient received 4 units of packed red blood cells and her count this morning is up to 9.1. The patient states that for the last several days she has had dark tarry bowel movements. She denies any nonsteroidal use or anticoagulants. The patient had a similar presentation in 02/2018 with a hemoglobin in the 6 g range. At that time, GI workup including endoscopy was recommended. However, the patient signed out against medical advice. She denies any hematemesis, but does admit to some nausea and vomiting. She admits to some dyspnea on exertion, lack of energy, generalized malaise, but she denies any chest pain. PAST MEDICAL HISTORY: Notable for recurrent anemia, cryptogenic cirrhosis, psoriasis, cardiomyopathy, atrial fibrillation, ascites, and pleural effusion. SOCIAL HISTORY: She denies cigarette smoking. She admits to drinking wine on weekends. FAMILY HISTORY: Noncontributory. MEDICATIONS AT HOME: Include Betapace, Lasix, ascorbic acid, and ibuprofen p.r.n.. REVIEW OF SYSTEMS: The 14-point review of systems is notable for melena, generalized weakness, difficulty in ambulating, shortness of breath on exertion. PHYSICAL EXAMINATION: GENERAL: Obese female, lying in bed, in no acute distress. VITAL SIGNS: Reveal temperature of 97.7, blood pressure 128/87, heart rate of 79. HEENT: Reveals sclerae to be white. Conjunctivae pink. NECK: Supple. CHEST: Revealed distant breath sounds. HEART: Exam reveals an irregularly irregular rate. ABDOMEN: Soft, nontender. EXTREMITIES: Show no edema. LABORATORY DATA: Reveal hemoglobin of 9.1, up from 4.2 after 4 units of packed red blood cells. Chemistries reveal potassium of 3, BUN 102, creatinine 2.4. IMPRESSION: A 63-year-old female with recurrent anemia, cryptogenic cirrhosis, cardiomyopathy, atrial fibrillation, with several days of melena. The patient has an upper gastrointestinal bleed. Her BUN and creatinine are elevated at 102 and 1.4. RECOMMENDATIONS: We will schedule the patient for an urgent endoscopy. Conner Kate MD
[2018-08-20 21:49] LABS: URINE BILIRUBIN NEGATIVE (NEGATIVE); URINE BLOOD TRACE-INTACT (NEGATIVE); URINE GLUCOSE (UA) NEGATIVE (NEGATIVE); URINE LEUKOCYTE ESTERASE MODERATE Leu/uL (NEGATIVE); URINE PROTEIN TRACE mg/dL (<30 mg/dL); URINE UROBILINOGEN 0.2 E.U./dL (<1 E.U./dL)
[2018-08-20 21:50] LABS: URINE APPEARANCE CLEAR (CLEAR); URINE COLOR YELLOW (YELLOW)
[2018-08-20 21:56] LABS: URINE BACTERIA MANY (NEG); URINE RBC 0 - 2 /hpf (0-2)
[2018-08-21] MEDS: Pantoprazole 40mg/100mL NS 40 MG/100 ML BAG IVPB SCH ×2 (01:14→07:05)
[2018-08-21] MEDS ORDERED: Levothyroxine 50 MCG TAB PO SCH (06:00)
[2018-08-21 06:31] LABS: BASO # 0.01 K/mm3 (0.0-2.0); BASO % 0.2 % (0.0-3.0); EOS % 0.8 % (1.5-5.0); GRAN # 3.46 (1.4-6.5); GRAN % 67.2 % (50.0-68.0); HEMOGLOBIN 8.9 g/dL (12.0-16.0); LYMPH # 0.8 (1.2-3.4); LYMPH % 15.3 % (22.0-35.0); MEAN CELL VOLUME 97.2 fl (80.0-105.0); MEAN CORPUSCULAR HEMOGLOBIN 31.4 pg (25.0-35.0); MEAN CORPUSCULAR HGB CONC 32.4 g/dl (31.0-37.0); MEAN PLATELET VOLUME 9.2 fl (7.0-11.0); MONO # 0.9 (0.1-0.6); MONO % 16.5 % (1.0-6.0); RBC 2.83 10^6/uL (3.5-6.1); RED CELL DISTRIBUTION WIDTH 26.6 % (11.5-14.5); WHITE BLOOD COUNT 5.2 10^3/ul (4.5-11.0)
[2018-08-21 06:48] LABS: ALBUMIN 2.7 g/dL (3.0-4.8); CALCIUM 8.5 mg/dL (8.4-10.5)
[2018-08-21] MEDS ORDERED: Potassium Chloride 20 mEq/15 ml LIQ UD PO STA (08:23)
--- NOTE | 2018-08-21 08:46 | PN ---
SUBJECTIVE: The patient was seen and examined at bedside on the telemetry ocampo. No acute events overnight. She remains afebrile, hemodynamically stable and is doing well s/p EGD which demonstrated nonbleeding grade 1 esophageal varices, portal hypertensive gastropathy and several areas of actively bleeding AVMs in the body and antrum of the stomach which were successfully cauterized. This morning she feels well but does endorse some anxiety and furthermore is requesting her diet to be advanced. PHYSICAL EXAMINATION: VITAL SIGNS: Temperature 98.5, pulse 74, blood pressure 113/68, respiratory rate 18, oxygen saturation 94% on room air. GENERAL: No apparent distress. HEENT: PERRL, EOMI. No scleral icterus. Mild conjunctival pallor is noted. NECK: No JVD. LUNGS: Clear to auscultation. CARDIOVASCULAR: Irregularly irregular. Normal S1, S2. ABDOMEN: Normoactive bowel sounds, soft, nondistended, minimal tenderness to palpation to the epigastrium with voluntary guarding. EXTREMITIES: No edema. NEUROLOGIC: Awake, alert, and oriented x 3. No focal motor deficits. SKIN: Multiple shallow ulcerations to her upper back and lower extremities with surrounding erythema. LABORATORY DATA: WBC 5.2, hemoglobin 8.9, hematocrit 27, platelets 126. Sodium 140, potassium 3.5, chloride 114, bicarb 17, BUN 84, creatinine 2.5, glucose 93. ASSESSMENT: The patient is a 63-year-old woman with a past medical history of alcoholic cirrhosis, anemia of chronic disease and paroxysmal AFib who was admitted for management of severe symptomatic anemia secondary to upper GI bleed. PLAN: 1. Severe symptomatic anemia secondary to upper GI bleed. Input from Dr. Kate greatly appreciated and EGD findings reviewed. The patient is s/p transfusion of 4 units of PRBCs with an appropriate response in her hemoglobin and there has been no further report of melena or hematochezia. Advance diet as per Dr. Kate. Discontinue Protonix drip and start Protonix 40 mg IV every 12 hours. 2. CHARLIE on CKD stage II. Continue to encourage p.o. intake and continue IV fluid hydration with normal saline at 75 mL/hour. 3. Alcoholic cirrhosis. 4. Paroxysmal AFib. Sotalol remains on hold given the patient's borderline low blood pressure. We will continue to monitor hemodynamics and resume medications as needed. 5. Hypertension. As above, Sotalol remains on hold given borderline blood pressure. 6. Hypothyroidism. Continue Synthroid 50 mcg p.o. daily. 7. Anxiety. Start Xanax 0.5 mg p.o. b.i.d. as needed. 8. Prophylaxis. Continue Protonix for GI prophylaxis. DVT prophylaxis not indicated as the patient is ambulatory. CODE STATUS: Full code. Zelalem Brambila MD [facility]
[2018-08-21] MEDS ORDERED: MOMETASONE 0.1% TOP SCH (10:00)
[2018-08-21 12:00] VITALS: BP 156/97; PULSE 89; RESP 20; TEMP 97.7
[2018-08-21 13:31] VITALS: O2SAT 96
--- NOTE | 2018-08-22 07:59 | PN ---
DATE: 08/21/2018 SUBJECTIVE: The patient is lying in bed, comfortable. She denies any melena, abdominal pain, nausea, vomiting. She tolerated clear liquids. PHYSICAL EXAMINATION: VITAL SIGNS: Reveal temperature of 97.7, blood pressure 156/97, heart rate of 89. HEENT: Reveal sclerae to be white. Conjunctivae pale. NECK: Supple. CHEST: Lungs are clear. HEART: Reveals an irregular rate. ABDOMEN: Obese, soft, nontender. EXTREMITIES: Show no edema. LABORATORY DATA: Reveal hemoglobin of 8.9, white blood cell count 5.2. Chemistries reveal BUN down to 84, creatinine 2.5, bicarb is 17. IMPRESSION: A 63-year-old female with severe anemia, recurrent with history of cryptogenic cirrhosis, history of atrial fibrillation, history of cardiomyopathy and coronary artery disease, found to have grade 1 nonbleeding esophageal varices, portal hypertensive gastropathy as well as bleeding arteriovenous malformations in the stomach, which were cauterized with BICAP electrocautery yesterday as well as a large gastric ulcer. Her count appears to be stable. She is asking for food. She is also asking me to be discharged home. RECOMMENDATIONS: The patient's diet will be advanced to a soft diet. If tolerated, she can be discharged home with close outpatient followup. She will need to continue Betapace as a beta-sita for prevention of variceal bleeding. She will also need to be on high dose of Protonix 40 mg twice a day as well as on iron replacement, Feosol 325 mg three times a day to correct her anemia from chronic GI blood loss. She will also need an elective colonoscopy to complete her workup for severe anemia. Conner Kate MD
== END 2018-08-21 14:46 | disposition home or self-care (01) | DRG 378 ==
LOC: ED 11:49 → ERH 14:04 → 2RNO 17:24
PROVIDERS: ADMIT Student in an Organized Health Care Education/Training Program; ATTEND Student in an Organized Health Care Education/Training Program
PROC: 30233N1 Transfusion of Nonautologous Red Blood Cells into Peripheral Vein, Percutaneous Approach (ICD-10-PCS; 2018-08-19)
PROC: 0W3P8ZZ Control Bleeding in Gastrointestinal Tract, Via Natural or Artificial Opening Endoscopic (ICD-10-PCS; principal; 2018-08-20 11:00)
DX: K31.811 Angiodysplasia of stomach and duodenum with bleeding (principal); N17.9 Acute kidney failure, unspecified; K76.6 Portal hypertension; D50.0 Iron deficiency anemia secondary to blood loss (chronic); K70.30 Alcoholic cirrhosis of liver without ascites; I48.0 Paroxysmal atrial fibrillation; N18.2 Chronic kidney disease, stage 2 (mild); I12.9 Hypertensive chronic kidney disease with stage 1 through stage 4 chronic kidney disease, or unspecified chronic kidney disease; I25.10 Atherosclerotic heart disease of native coronary artery without angina pectoris; E03.9 Hypothyroidism, unspecified; F41.9 Anxiety disorder, unspecified; K31.89 Other diseases of stomach and duodenum; I85.10 Secondary esophageal varices without bleeding; K25.9 Gastric ulcer, unspecified as acute or chronic, without hemorrhage or perforation

== ENCOUNTER 2018-11-25 10:26 | Inpatient (IN) | payer BC ==
--- NOTE | 2018-11-25 11:31 | ED PDOC ---
Arrival/HPI - General Chief Complaint: Syncope Time Seen by Provider: 11/25/18 10:30 Historian: Patient - History of Present Illness Narrative History of Present Illness (Text): 11/25/18 11:39 Patient is a 63 year old female, with past medical history of gastric ulcer, anemia, A-fib, ascites, psoriasis, and dilated cardiomyopathy, presents to the ED via EMS for medical evaluation s/p syncopal episode that occurred at 3 am this morning. Patient informs remembering waking up to go the bathroom and then finding herself on the floor. Patient informs head injury but denies any loss of consciousness. Patient reports immediate pain to the left leg associated with difficulty getting up. Patient states yelling for help when her friends assisted her onto the bed. Patient informs being nervous to come to the hospital and delayed calling EMS at the time. Patient reports poor diet intake for past 2 days secondary to lack of appetite and depressed mood. Patient informs compliance with her iron pills daily. Patient informs left knee pain secondary to fall but denies any other associated somatic complaints. Patient denies any f dieter, chills, headache, dizziness, chest pain, shortness of breath, dyspnea on exertion, cough, abdominal pain, nausea, vomiting, diarrhea, hematemesis, hematochezia or melena, back pain, neck pain, or any other complaints. Time/Duration: 4-6 hours Symptom Onset: Gradual Symptom Course: Improving Activities at Onset: Light Context: Home Past Medical History - Provider Review Nursing Documentation Reviewed: Yes - Infectious Disease Hx of Infectious Diseases: None - Tetanus Immunization Tetanus Immunization: Unknown - Cardiac Hx Cardiac Disorders: Yes Hx Hypertension: Yes (taken off meds by pmd) Hx Pacemaker: No Hx Peripheral Edema: Yes (ble +1) - Pulmonary Hx Respiratory Disorders: Yes (PLEURAL EFFUSION) - Neurological Hx Neurological Disorder: Yes Hx Dizziness: Yes - HEENT Hx HEENT Disorder: No Hx Difficulty Chewing: No - Renal Hx Renal Disorder: Yes Other/Comment: bladder stones - Endocrine/Metabolic Hx Endocrine Disorders: No - Hematological/Oncological Hx Blood Disorders: Yes Hx Anemia: Yes (2009 due to blood loss) - Integumentary Hx Dermatological Disorder: Yes Hx Psoriasis: Yes Other/Comment: ble skin discolorations - Musculoskeletal/Rheumatological Hx Falls: No - Gastrointestinal Hx Gastrointestinal Disorders: Yes (ASCITES, gastritis) Hx Liver Failure: Yes (cirrhosis dx 5 yrs ago) - Genitourinary/Gynecological Hx Genitourinary Disorders: No - Psychiatric Hx Psychophysiologic Disorder: No Hx Emotional Abuse: No Hx Physical Abuse: No Hx Substance Use: No - Surgical History Other/Comment: colonoscopy, paracenthesis "4 yrs ago" stated pt - Anesthesia Hx Anesthesia: Yes Hx Anesthesia Reactions: Yes (NAUSEA WEAKNESS;"WOKE UP DURING C SECTION") Hx Malignant Hyperthermia: No - Suicidal Assessment Feels Threatened In Home Enviroment: No Family/Social History - Physician Review Nursing Documentation Reviewed: Yes Family/Social History: No Known Family HX Smoking Status: Never Smoked Hx Alcohol Use: Yes (1 glass wine on a weekend) Hx Substance Use: No Hx Substance Use Treatment: No Allergies/Home Meds Allergies/Adverse Reactions: Allergies No Known Allergies Allergy (Verified 02/02/15 13:20) Home Medications: Home Meds Medication Instructions Recorded Confirmed Ascorbic Acid [Vitamin C 500 mg 1 tab PO DAILY 03/24/18 11/25/18 Tab] Furosemide [Lasix] 1 tab PO BID 03/24/18 11/25/18 Ibuprofen [Motrin Tab] 1 tab PO Q8H 03/24/18 11/25/18 Sotalol [Betapace] 1 tab PO BID 03/24/18 11/25/18 Review of Systems - Physician Review All systems were reviewed & negative as marked: Yes - Review of Systems Constitutional: absent: Fevers Eyes: absent: Vision Changes Respiratory: absent: SOB, Cough Cardiovascular: absent: Chest Pain Gastrointestinal: absent: Abdominal Pain, Diarrhea, Nausea, Vomiting, Hematochezia, Hematemesis Genitourinary Female: absent: Dysuria, Hematuria, Urine Output Changes Musculoskeletal: Arthralgias (left knee pain). absent: Back Pain, Neck Pain Skin: absent: Rash Neurological: Other (Syncope). absent: Headache, Dizziness Physical Exam Vital Signs Reviewed: Yes Vital Signs Temp Pulse Resp BP Pulse Ox 11/25/18 10:43 98 F 98 H 18 123/78 100 Temperature: Afebrile Blood Pressure: Normal Pulse: Regular Respiratory Rate: Normal Appearance: Positive for: Well-Appearing, Non-Toxic, Comfortable Pain Distress: None Mental Status: Positive for: Alert and Oriented X 3 Finger Stick Blood Glucose: 93 - Systems Exam Head: Present: Atraumatic, Normocephalic Pupils: Present: PERRL Extroacular Muscles: Present: EOMI Conjunctiva: Present: Normal Mouth: Present: Moist Mucous Membranes Neck: Present: Normal Range of Motion Respiratory/Chest: Present: Clear to Auscultation, Good Air Exchange. No: Respiratory Distress, Accessory Muscle Use Cardiovascular: Present: Normal S1, S2, Irregular Rhythm. No: Murmurs Abdomen: Present: Distention (Ascites). No: Tenderness, Peritoneal Signs Back: Present: Normal Inspection Upper Extremity: Present: Normal ROM, NORMAL PULSES, Neurovascularly Intact, Capillary Refill < 2s. No: Cyanosis, Edema, Temperature Abnormalties Lower Extremity: Present: NORMAL PULSES, Normal ROM, Tenderness (tenderness to left anterior knee and tenderness over left dorsal foot), Neurovascularly Intact, Capillary Refill < 2 s, Other (Bruise noted to left anterior knee.). No: Edema, Deformity, Temperature Abnormalties Neurological: Present: GCS=15, CN II-XII Intact, Speech Normal, Motor Func Grossly Intact, Normal Sensory Function, Gait Normal Skin: Present: Warm, Dry, Normal Color. No: Rashes Psychiatric: Present: Alert, Oriented x 3, Normal Insight, Normal Concentration, Normal Affect, Anxious Medical Decision Making ED Course and Treatment: 11/25/18 11:20 Initial Plan: * Labwork * UA * UDS * CXR * EKG * Fingerstick * IVF Fingerstick 93 Will give ASA after normal CT head EKG shows Afib with rapid ventricular response, rate 112; nonspecific ST/T wave changes Patient's previous charts reviewed. Patient was last admitted on 08/19/18 for similar symptoms with hemoglobin of 4.2 and was transfused with 4 units of blood and had a EGB performed, which showed eso phageal varices, portal hypertensive and gastropaphy, and areas of bleeding angioectesis in the stomach that were cauterized. Patient was discharged on 08/28/18 with GI follow-up with Dr. Kate. 11:54 Hemoglobin 5.4, Hematocrit 15. ASA held. Patient refusing rectal exam. PMH of bleeding varicosities and gastric ulcers. Pt consented for blood transfusion. Risks vs benefits discussed in detail. Anai adrian verbalizes understanding. Potassium 3.0, will give PO 40mEq KCl 11/25/18 12:[address] Brambila, who is aware and agrees with ED management plan, recommends 240 mg of cardizem CD PO. Patient was also started on Rocephin for UTI. 13:45 CTs and XR negative for acute pathology 14:[address] Brambila regarding patient admission. Advises to transfuse patient in ED, as she is voicing that she is going to leave AMA after infusions. Admission refused at this time. 14:36 Spoke with nursing car and yard supervisor Jaki Yanez, who states patient may receive blood transfusion here in ED and sign out AMA after if she desires. 16:00 Patient now states she would like to be admitted. Will contact Dr. Brambila. 16:[address] Zelalem Brambila, who accepts patient for inpatient telemetry admission with diagnoses of hypokalemia, anemia, UTI, atrial fibrillation. Pt with stable vital signs, resting comfortably in stretcher at this time. Pt made aware of change in disposition. - Lab Interpretations Lab Results: 11/25/18 11:11 11/25/18 11:11 Lab Results 11/25/18 13:40: Urine Opiates Screen Negative, Urine Methadone Screen Negative, Ur Barbiturates Screen Negative, Ur Phencyclidine Scrn Negative, Ur Amphetamines Screen Negative, U Benzodiazepines Scrn Negative, U Oth Cocaine Metabols Negative, U Cannabinoids Screen Negative 11/25/18 13:10: Ammonia < 9 L 11/25/18 11:40: Urine Color Yellow, Urine Appearance Clear, Urine pH 6.0, Ur Specific [place] 1.020, Urine Protein 30 H, Urine Glucose (UA) Negative, Urine Ketones Negative, Urine Blood Trace-intact H, Urine Nitrate Positive H, Urine Bilirubin Negative, Urine Urobilinogen 0.2, Ur Leukocyte Esterase Moderate H, Urine RBC 2 - 5 H, Urine WBC 20 - 25 H, Ur Epithelial Cells 4 - 5, Urine Bacteria Many, Urine Other Uyeast 11/25/18 11:11: Thyroxine (T4) 5.1 L, Total T3 0.70 L, TSH 3rd Generation 3.34 11/25/18 11:11: Blood Type A POSITIVE, Antibody Screen Negative, Crossmatch See Detail, BBK History Checked Patient has bt 11/25/18 11:11: Alcohol, Quantitative 12 H 11/25/18 11:11: Hemoglobin A1c 4.3 11/25/18 11:11: Sodium 135, Potassium 3.0 L, Chloride 105, Carbon Dioxide 14 L, Anion Gap 18, BUN 90 H, Creatinine 2.2 H, Est GFR ( Amer) 27, Est GFR (Non-Af Amer) 23, Random Glucose 95, Calcium 8.8, Total Bilirubin 0.4, AST 30, ALT 26, Alkaline Phosphatase 119, Troponin I 0.04 D, NT-Pro-B Natriuret Pep 63960 H, Total Protein 7.1, Albumin 3.9, Globulin 3.2, Albumin/Globulin Ratio 1.2, Triglycerides 128, Cholesterol 157, LDL Cholesterol Direct 60, HDL Cholesterol 71 H 11/25/18 11:11: PT 13.8 H, INR 1.22, APTT 27.9 11/25/18 11:11: WBC 3.4 L, RBC 1.37 L, Hgb 5.4 L* D, Hct 15.8 L*, MCV 115.3 H D, MCH 39.4 H, MCHC 34.2, RDW 18.4 H, Plt Count 134, MPV 8.5, Neut % (Auto) 61.5, Lymph % (Auto) 22.1, Rankin % (Auto) 13.7 H, Eos % (Auto) 0.9 L, Baso % (Auto) 1.8, Lymph # (Auto) 0.7 L, Rankin # (Auto) 0.5, Eos # (Auto) 0.0, Baso # (Auto) 0.06, Absolute Neuts (auto) 2.06 I have reviewed the lab results: Yes - RAD Interpretation Narrative RAD Interpretations (Text): 11/25/18 13:47 CT of Cervical Spine reviewed by radiologist, shows: FINDINGS: VERTEBRAE: No evidence of acute displaced fracture nor dislocation. The vertebral bodies exhibit normal stature. Suspect very slight side bending of the head to the right. Vertebral bodies otherwise exhibit normal alignment. DISCS/SPINAL CANAL/NEURAL FORAMINA: There is mild disc space narrowing seen at several levels. No disc herniations however broad-based bulging of the posterior annulus noted at the C3-C4 and C4- C5 levels. Overall central bony canal and exit foramina appear adequate despite minimal hypertrophic facet joint changes. PARASPINAL SOFT TISSUES: Unremarkable. OTHER FINDINGS: Lung apices are clear. Note made of a calcified atherosclerotic plaque of both distal common carotid arteries and carotid bifurcations. There is mild extension of these are calcified plaque changes into the proximal aspect right internal carotid artery. IMPRESSION: No acute fractures. Very minor broad-based bulging of the posterior annuli seen at the C3-C4 and C4-C5 levels. Central canal and exit foramina appear adequate. 11/25/18 13:49 CT of head reviewed by radiologist, shows: FINDINGS: HEMORRHAGE: No intracranial hemorrhage. BRAIN: Mild chronic periventricular white and subcortical white matter ischemic changes. There appears to be a few scattered chronic bilateral basal nuclei lacunar type infarcts as well. . Moderate generalized volume loss with more localized bifrontal and superior parietal cortical atrophic changes. Mild vascular calcifications both carotid siphons. VENTRICLES: No obstructive hydrocephalus. CALVARIUM: No acute calvarial fractures. Small bony protuberance-exostosis seen arising from the outer table right frontal calvarium PARANASAL SINUSES: Unremarkable as visualized. No significant inflammatory changes. MASTOID AIR CELLS: Unremarkable as visualized. No inflammatory changes. OTHER FINDINGS: Findings consistent with bilateral exophthalmos. Clinical correlation ophthalmological evaluation recommended. IMPRESSION: Mild chronic periventricular white and subcortical white matter ischemic changes. There appears to be a few scattered chronic bilateral basal nuclei lacunar type infarcts as well. . Moderate generalized volume loss with more localized bifrontal and superior parietal cortical atrophic changes. 11/25/18 13:50 Chest X-ray reviewed by radiologist, shows: FINDINGS: LUNGS: No active pulmonary disease. PLEURA: No significant pleural effusion identified, no pneumothorax apparent. CARDIOVASCULAR: No aortic atherosclerotic calcification present. Stable cardiomegaly. No pulmonary vascular congestion. OSSEOUS STRUCTURES: No significant abnormalities. VISUALIZED UPPER ABDOMEN: Normal. OTHER FINDINGS: None. IMPRESSION: No interval acute cardiopulmonary disease appreciated. Cardiomegaly unchanged. 11/25/18 14:40 X-ray of bilateral knees reviewed by radiologist, shows: FINDINGS: BONES: Right Knee: Normal. No fracture. Left Knee: Normal. No fracture. JOINTS: Right Knee: Normal. No osteoarthritis. Left knee: Normal. No osteoarthritis. SOFT TISSUES: No evidence of significant soft tissue swelling. No subcutaneous emphysema or radiopaque foreign bodies are identified. JOINT EFFUSION: Suspect trace joint effusions left slightly larger than right. OTHER FINDINGS: None. IMPRESSION: No acute displaced fracture nor dislocation. Suspect trace joint effusions left slightly larger than right X-ray of foot reviewed by radiologist, shows: FINDINGS: BONES: No evidence of acute displaced fracture nor dislocation. Small plantar and tiny posterior calcaneal enthesophytes. JOINTS: Minimal hallux valgus deformity with slight degenerative changes 1st MTP joint.. Additionally, mild extension deformities at the level of the PIP joints 2nd 3rd 4th and 5th digits. SOFT TISSUES: Soft tissues of the foot appear grossly unremarkable OTHER FINDINGS: None. IMPRESSION: No acute displaced fracture nor dislocation. X-ray of Ankle reviewed by radiologist, shows: FINDINGS: BONES: No evidence of acute displaced fracture nor dislocation. Small plantar and very tiny posterior calcaneal enthesophytes. JOINTS: Normal. No osteoarthritis. Ankle mortise maintained. Talar dome intact SOFT TISSUES: Mild soft tissue swelling over the lateral malleolus. OTHER FINDINGS: None. IMPRESSION: No acute fractures. Minor soft tissue swelling over the lateral malleolus. = Radiology Orders: 11/25/18 11:06 HEAD W/O CONTRAST [CT] Stat CHEST PORTABLE [RAD] Stat 11/25/18 11:13 CERVICAL SPINE W/O CONTRAST [CT] Stat ANKLE LEFT 3 VIEWS ROUTINE [RAD] Stat FOOT LEFT 3 VIEWS ROUTINE [RAD] Stat KNEE W PATELLA BILAT 3 VIEW [RAD] Stat Mechanical Repair Worker: Radiologist - EKG Interpretation EKG Interpretation (Text): Rate 112; Afib with rapid ventricular response; No STEMI, nonspecific ST/T wave changes - Medication Orders Current Medication Orders: Sodium Chloride (Sodium Chloride 0.9%) 1,000 mls @ 100 mls/hr IV .Q10H DOUGLAS NIHSS Scale ([place]) Time Performed: 10:45 - How Severe is the Stoke Baseline Level of Consciousness: 0=Alert LOC to Questions: 0=Both comments correct LOC to commands: 0=Obeys both correctly Best Gaze: 0=Normal Visual: 0=No visual loss Facial: 0=Normal Motor Arm - Left: 0=No drift Motor Arm - Right: 0=No drift Motor Leg - Left: 0=No drift Motor Leg - Right: 0=No drift Limb Ataxia: 0=Absent Sensory: 0=Normal Best Language: 0=No aphasia Dysarthia: 0=Normal articulation Extinction & Inattention (Neglect): 0=Normal, no object Score: 0 Risk Level: No Stroke Risk - PA / MANUFACTURING RECRUITER / Resident Statement MD/DO has reviewed & agrees with the documentation as recorded. MD/DO has examined the patient and agrees with the treatment plan. - Scribe Statement The provider has reviewed the documentation as recorded by the Scribe Jericho Garnica. All medical record entries made by the Dianaibjace were at my direction and personally dictated by me. I have reviewed the chart and agree that the record accurately reflects my personal performance of the history, physical exam, medical decision making, and the department course for this patient. I have also personally directed, reviewed, and agree with the discharge instructions and disposition. Disposition/Present on Arrival - Present on Arrival Any Indicators Present on Arrival: No History of DVT/PE: No History of Uncontrolled Diabetes: No Urinary Catheter: No History of Decub. Ulcer: No History Surgical Site Infection Following: None - Disposition Have Diagnosis and Disposition been Completed?: Yes Diagnosis: Anemia, Hypokalemia, Atrial fibrillation, UTI (urinary tract infection) Disposition: HOSPITALIZED Disposition Time: 16:00 Patient Plan: Discharge Patient Problems: Current Active Problems Problem Status Onset Atrial fibrillation Acute Hypokalemia Acute Profound anemia Acute UTI (urinary tract infection) Acute Condition: GUARDED
[2018-11-25 11:32] LABS: BASO # 0.06 K/mm3 (0.0-2.0); BASO % 1.8 % (0.0-3.0); EOS % 0.9 % (1.5-5.0); LYMPH # 0.7 (1.2-3.4); LYMPH % 22.1 % (22.0-35.0); MEAN CELL VOLUME 115.3 fl (80.0-105.0); MEAN CORPUSCULAR HEMOGLOBIN 39.4 pg (25.0-35.0); MEAN CORPUSCULAR HGB CONC 34.2 g/dl (31.0-37.0); MEAN PLATELET VOLUME 8.5 fl (7.0-11.0); MONO # 0.5 (0.1-0.6); MONO % 13.7 % (1.0-6.0); RBC 1.37 10^6/uL (3.5-6.1); RED CELL DISTRIBUTION WIDTH 18.4 % (11.5-14.5); WHITE BLOOD COUNT 3.4 10^3/uL (4.5-11.0)
[2018-11-25 11:38] LABS: HEMOGLOBIN 5.4 g/dL (12.0-16.0)
--- NOTE | 2018-11-25 11:40 | RAD ---
Date of service: 11/25/2018 HISTORY: syncope COMPARISON: Portable chest 08/19/2018. FINDINGS: LUNGS: No active pulmonary disease. PLEURA: No significant pleural effusion identified, no pneumothorax apparent. CARDIOVASCULAR: No aortic atherosclerotic calcification present. Stable cardiomegaly. No pulmonary vascular congestion. OSSEOUS STRUCTURES: No significant abnormalities. VISUALIZED UPPER ABDOMEN: Normal. OTHER FINDINGS: None. IMPRESSION: No interval acute cardiopulmonary disease appreciated. Cardiomegaly unchanged.
[2018-11-25 11:41] LABS: INR 1.22; PARTIAL THROMBOPLASTIN TIME 27.9 Seconds (26.9-38.3); PROTHROMBIN TIME 13.8 SECONDS (9.4-12.5)
[2018-11-25 11:43] LABS: ALB/GLOB RATIO 1.2 (1.1-1.8); ALBUMIN 3.9 g/dL (3.0-4.8); CALCIUM 8.8 mg/dL (8.4-10.5)
[2018-11-25] MEDS: Sodium Chloride 0.9% 1,000 ML IV SCH ×3 (11:53→23:31)
[2018-11-25 11:56] LABS: URINE BILIRUBIN NEGATIVE (NEGATIVE); URINE BLOOD TRACE-INTACT (NEGATIVE); URINE GLUCOSE (UA) NEGATIVE (NEGATIVE); URINE LEUKOCYTE ESTERASE MODERATE Leu/uL (NEGATIVE); URINE PROTEIN 30 mg/dL (<30 mg/dL); URINE UROBILINOGEN 0.2 E.U./dL (<1 E.U./dL)
[2018-11-25 11:57] LABS: URINE APPEARANCE CLEAR (CLEAR); URINE COLOR YELLOW (YELLOW)
[2018-11-25 11:57] LABS: TROPONIN I 0.04 ng/mL
[2018-11-25 12:04] LABS: URINE BACTERIA MANY /hpf; URINE WBC 20 - 25 /hpf (0-6)
[2018-11-25] MEDS ORDERED: cefTRIAXone 1 gm 1 GM/100 ML BAG IVPB STA (12:05)
[2018-11-25] MEDS ORDERED: Potassium Chloride 20 mEq ER Tab PO STA (12:13)
[2018-11-25] MEDS ORDERED: diltiaZEM 240 mg/24 Hours CD Cap PO STA (12:30)
[2018-11-25 12:59] LABS: T4 5.1 ug/dL (5.5-11.0)
[2018-11-25 13:12] LABS: T3 0.7 ng/mL (0.97-1.69)
--- NOTE | 2018-11-25 13:33 | CT ---
Date of service: 11/25/2018 PROCEDURE: CT HEAD WITHOUT CONTRAST. HISTORY: Syncope COMPARISON: Comparison made with prior CT scan brain 03/24/2018. TECHNIQUE: Axial computed tomography images were obtained through the head/brain without intravenous contrast. Radiation dose: Total exam DLP = 754.74 mGy-cm. This CT exam was performed using one or more of the following dose reduction techniques: Automated exposure control, adjustment of the mA and/or kV according to patient size, and/or use of iterative reconstruction technique. FINDINGS: HEMORRHAGE: No intracranial hemorrhage. BRAIN: Mild chronic periventricular white and subcortical white matter ischemic changes. There appears to be a few scattered chronic bilateral basal nuclei lacunar type infarcts as well. . Moderate generalized volume loss with more localized bifrontal and superior parietal cortical atrophic changes. Mild vascular calcifications both carotid siphons. VENTRICLES: No obstructive hydrocephalus. CALVARIUM: No acute calvarial fractures. Small bony protuberance-exostosis seen arising from the outer table right frontal calvarium PARANASAL SINUSES: Unremarkable as visualized. No significant inflammatory changes. MASTOID AIR CELLS: Unremarkable as visualized. No inflammatory changes. OTHER FINDINGS: Findings consistent with bilateral exophthalmos. Clinical correlation ophthalmological evaluation recommended. IMPRESSION: Mild chronic periventricular white and subcortical white matter ischemic changes. There appears to be a few scattered chronic bilateral basal nuclei lacunar type infarcts as well. . Moderate generalized volume loss with more localized bifrontal and superior parietal cortical atrophic changes.
--- NOTE | 2018-11-25 13:37 | CT ---
Date of service: 11/25/2018 PROCEDURE: CT Cervical Spine without contrast HISTORY: Status post fall. COMPARISON: None available. TECHNIQUE: Axial computed tomography images were obtained of the cervical spine without the use of intravenous contrast. Coronal and sagittal reformatted images were created and reviewed. Radiation dose: Total exam DLP = 373.88 mGy-cm. This CT exam was performed using one or more of the following dose reduction techniques: Automated exposure control, adjustment of the mA and/or kV according to patient size, and/or use of iterative reconstruction technique. FINDINGS: VERTEBRAE: No evidence of acute displaced fracture nor dislocation. The vertebral bodies exhibit normal stature. Suspect very slight side bending of the head to the right. Vertebral bodies otherwise exhibit normal alignment. DISCS/SPINAL CANAL/NEURAL FORAMINA: There is mild disc space narrowing seen at several levels. No disc herniations however broad-based bulging of the posterior annulus noted at the C3-C4 and C4-C5 levels. Overall central bony canal and exit foramina appear adequate despite minimal hypertrophic facet joint changes. PARASPINAL SOFT TISSUES: Unremarkable. OTHER FINDINGS: Lung apices are clear. Note made of a calcified atherosclerotic plaque of both distal common carotid arteries and carotid bifurcations. There is mild extension of these are calcified plaque changes into the proximal aspect right internal carotid artery. IMPRESSION: No acute fractures. Very minor broad-based bulging of the posterior annuli seen at the C3-C4 and C4-C5 levels. Central canal and exit foramina appear adequate.
[2018-11-25 14:27] LABS: BARBITURATES, UR NEGATIVE (NEGATIVE); BENZODIAZEPINES, UR NEGATIVE (NEGATIVE); OPIATES, UR NEGATIVE (NEGATIVE); PHENCYCLIDINE, UR NEGATIVE (NEGATIVE)
--- NOTE | 2018-11-25 14:31 | RAD ---
Date of service: 11/25/2018 PROCEDURE: Left Ankle Radiographs. HISTORY: fall COMPARISON: Comparison made with concurrent radiographs of the left foot. FINDINGS: BONES: No evidence of acute displaced fracture nor dislocation. Small plantar and very tiny posterior calcaneal enthesophytes. JOINTS: Normal. No osteoarthritis. Ankle mortise maintained. Talar dome intact SOFT TISSUES: Mild soft tissue swelling over the lateral malleolus. OTHER FINDINGS: None. IMPRESSION: No acute fractures. Minor soft tissue swelling over the lateral malleolus.
--- NOTE | 2018-11-25 14:32 | RAD ---
Date of service: 11/25/2018 PROCEDURE: Bilateral Knee Radiographs. HISTORY: fall COMPARISON: None. FINDINGS: BONES: Right Knee: Normal. No fracture. Left Knee: Normal. No fracture. JOINTS: Right Knee: Normal. No osteoarthritis. Left knee: Normal. No osteoarthritis. SOFT TISSUES: No evidence of significant soft tissue swelling. No subcutaneous emphysema or radiopaque foreign bodies are identified. JOINT EFFUSION: Suspect trace joint effusions left slightly larger than right. OTHER FINDINGS: None. IMPRESSION: No acute displaced fracture nor dislocation. Suspect trace joint effusions left slightly larger than right
--- NOTE | 2018-11-25 14:34 | RAD ---
Date of service: 11/25/2018 PROCEDURE: Left Foot Radiographs. HISTORY: Status post fall COMPARISON: Comparison made with concurrent radiographs of the left ankle FINDINGS: BONES: No evidence of acute displaced fracture nor dislocation. Small plantar and tiny posterior calcaneal enthesophytes. JOINTS: Minimal hallux valgus deformity with slight degenerative changes 1st MTP joint.. Additionally, mild extension deformities at the level of the PIP joints 2nd 3rd 4th and 5th digits. SOFT TISSUES: Soft tissues of the foot appear grossly unremarkable OTHER FINDINGS: None. IMPRESSION: No acute displaced fracture nor dislocation.
--- NOTE | 2018-11-25 16:36 | CARD ---
APPROVED REPORT Date of service: 11/25/2018 EKG Measurement Heart [id number] <Conclusion> Poor data quality, interpretation may be adversely affected Atrial fibrillation with rapid ventricular response Nonspecific ST and T wave abnormality, probably digitalis effect Abnormal ECG
[2018-11-25] MEDS ORDERED: Lidocaine 5% Patch TD ONE (22:50)
[2018-11-25] MEDS ORDERED: Oxycodone/Acetaminophen 5/325 mg Tab PO PRN (22:51)
--- NOTE | 2018-11-25 22:57 | CP.PCM.PN ---
Subjective - Date & Time of Evaluation Date of Evaluation: 11/25/18 Time of Evaluation: 22:53 - Subjective Subjective: S:Nurse requested an order for Lidoderm patch for left knee pain. Patient received tylenol 650 mg PO x1 for pain but has not been effective. Has no other complaints now. Medical record was reviewed. O:VSS. Not in distress. LUNGS: Normal breathing pattern. Left Knee ANIVAL bandage on. Able to flex. A/P Left knee pain. Tylenol 650 mg was given. Will order lidoderm patch. Will give percocet 5/325 x 1 PRN. Objective - Vital Signs/Intake and Output Vital Signs (last 24 hours): Temp Pulse Resp BP Pulse Ox 97.7 F 55 L 20 99/58 L 100 11/25/18 22:45 11/25/18 22:45 11/25/18 22:45 11/25/18 22:45 11/25/18 13:45 Intake and Output: 11/25/18 11/26/18 18:59 06:59 Intake Total 325 325 Balance 325 325 - Medications Medications: Current Medications Acetaminophen (Tylenol 325mg Tab) 650 mg PO Q6H PRN PRN Reason: Fever >100.4 F Last Admin: 11/25/18 21:04 Dose: 650 mg Ferrous Sulfate (Feosol) 324 mg PO TID [facility] Last Admin: 11/25/18 18:43 Dose: 324 mg Sodium Chloride (Sodium Chloride 0.9%) 1,000 mls @ 100 mls/hr IV .Q10H [facility] Last Admin: 11/25/18 22:04 Dose: Not Given Pantoprazole Sodium (Protonix 40mg Ivpb) 40 mg in 100 mls @ 20 mls/hr IVPB .Q5H [facility] Lidocaine (Lidoderm) 1 ea TD ONCE ONE Stop: 11/26/18 22:51 Oxycodone/Acetaminophen (Percocet 5/325 Mg Tab) 1 tab PO ONCE PRN PRN Reason: Left knee pain Stop: 11/28/18 22:52 Sotalol HCl (Betapace) 80 mg PO BID [facility] Last Admin: 11/25/18 18:58 Dose: 80 mg - Labs Labs: 11/25/18 11:11 11/25/18 11:11 PT 13.8 SECONDS (9.4-12.5) H 11/25/18 11:11 INR 1.22 11/25/18 11:11 APTT 27.9 Seconds (26.9-38.3) 11/25/18 11:11
[2018-11-25] MEDS: Pantoprazole 40mg/100mL NS 40 MG/100 ML BAG IVPB SCH (23:31)
[2018-11-26 00:11] VITALS: BMI 23.0
[2018-11-26] MEDS: Pantoprazole 40mg/100mL NS 40 MG/100 ML BAG IVPB SCH ×4 (03:03→17:38)
[2018-11-26 07:43] LABS: BASO # 0.08 K/mm3 (0.0-2.0); BASO % 1.9 % (0.0-3.0); EOS % 0.7 % (1.5-5.0); LYMPH # 1.2 (1.2-3.4); LYMPH % 27.7 % (22.0-35.0); MEAN CELL VOLUME 102.2 fl (80.0-105.0); MEAN CORPUSCULAR HEMOGLOBIN 34.3 pg (25.0-35.0); MEAN CORPUSCULAR HGB CONC 33.6 g/dl (31.0-37.0); MEAN PLATELET VOLUME 8.9 fl (7.0-11.0); MONO # 0.5 (0.1-0.6); MONO % 12.1 % (1.0-6.0); RBC 2.3 10^6/uL (3.5-6.1); RED CELL DISTRIBUTION WIDTH 25.8 % (11.5-14.5); WHITE BLOOD COUNT 4.2 10^3/uL (4.5-11.0)
[2018-11-26 07:52] LABS: HEMOGLOBIN 7.9 g/dL (12.0-16.0); INR 1.28; PROTHROMBIN TIME 14.5 SECONDS (9.4-12.5)
[2018-11-26 08:13] LABS: ALB/GLOB RATIO 1.2 (1.1-1.8); ALBUMIN 3.6 g/dL (3.0-4.8); CALCIUM 8.4 mg/dL (8.4-10.5)
--- NOTE | 2018-11-26 10:18 | HP ---
HISTORY OF PRESENT ILLNESS: The patient is a 63-year-old woman with a past medical history of alcoholic cirrhosis, portal hypertensive gastropathy, grade 1 esophageal varices and gastric angioectasias with prior admissions for severe symptomatic anemia secondary to upper GI bleed who presented s/p syncopal episode. The patient reports that she was ambulating to the bathroom when she developed sudden onset of lightheadedness and the next thing she recalled was waking up on the bathroom floor. She was brought to [facility] ED by EMS where she was found to be afebrile and hemodynamically stable but pale on examination. Laboratory studies disclosed profound anemia with a Hb of 5.4. She was type and crossmatched for 2 units of PRBCs and subsequently admitted to the telemetry ocampo for continued management of severe symptomatic anemia. Of note, the patient states that she has been taking and NSAIDs for headaches despite being counseled on multiple occasions to refrain from NSAIDs given her history of GI bleed and underlying comorbidities. She furthermore admits to drinking alcohol despite being counseled on the need to abstain from alcohol consumption. PAST MEDICAL HISTORY: As per HPI, also paroxysmal AFib, dilated cardiomyopathy, hypertension, hypothyroidism, CKD stage II, anxiety disorder and psoriasis. PAST SURGICAL HISTORY: D&C, , breast augmentation and transurethral resection of bladder tumor. ALLERGIES: NKDA. MEDICATIONS: Sotalol 80 mg p.o. b.i.d, Lasix 20 mg p.o. b.i.d, Feosol 325 mg p.o. t.i.d, Synthroid 50 mcg p.o. daily, Lisinopril 2.5 mg p.o. daily, Xanax 0.5 mg p.o. b.i.d and Protonix 40 mg p.o. b.i.d. FAMILY HISTORY: Noncontributory. SOCIAL HISTORY: The patient reports former daily alcohol use who presently endorses occasional alcohol consumption. She denies smoking history or illicit drug abuse. REVIEW OF SYSTEMS: A 12-point review of systems is negative except as per HPI. PHYSICAL EXAMINATION: VITAL SIGNS: Temperature 98.3, pulse 58, blood pressure 97/50, respiratory rate 20, oxygen saturation 99% on room air. GENERAL: Pale woman lying in bed in no apparent distress. HEENT: PERRL, EOMI. No scleral icterus. Conjunctival pallor is noted. NECK: No JVD. LUNGS: Clear to auscultation. CARDIOVASCULAR: Regular rate and rhythm. Normal S1, S2. ABDOMEN: Normoactive bowel sounds. Soft, nontender, nondistended. EXTREMITIES: No edema. NEUROLOGIC: Awake, alert and oriented x 3. No focal motor deficits. LABORATORY DATA: WBC 4.2, hemoglobin 7.9, hematocrit 23, platelets 144. Sodium 138, potassium 3.9, chloride 111, bicarb 15, BUN 86, creatinine 2.6, glucose 96. INR 1.28. TSH 3.34. Alcohol level 12. ASSESSMENT: The patient is a 63-year-old woman with a past medical history of alcoholic cirrhosis, portal hypertensive gastropathy, esophageal varices and gastric angioectasias who was admitted s/p syncopal episode for management of severe symptomatic anemia suspected secondary to upper GI bleed. PLAN: 1. Severe symptomatic anemia, likely secondary to upper GI bleed. The patient is s/p transfusion of 2 units of PRBCs with an appropriate response in hemoglobin. GI evaluation with Dr. Kate is pending. Continue with Protonix drip and Feosol 325 mg p.o. t.i.d. Maintain patient n.p.o. Continue to monitor CBC and transfuse as needed. She has been extensively counseled on the need to refrain from NSAIDs and alcohol given her comorbidities. 2. Alcoholic cirrhosis. Alcohol level of 12 on admission. As above, she has been counseled extensively on the adverse health effects of alcohol abuse and the need to abstain from alcohol consumption given her underlying comorbidities. 3. Esophageal varices. 4. Portal hypertensive gastropathy. 5. Dilated cardiomyopathy. Lisinopril 2.5 mg p.o. daily remains on hold due to borderline low blood pressure. Continue Lasix 20 mg p.o. b.i.d. 6. Paroxysmal Afib. Sotalol 80 mg p.o. b.i.d remains on hold due to borderline low blood pressure. The patient is not on anticoagulation therapy due to history of GI bleed. 7. Hypertension. Antihypertensives on hold due to borderline low blood pressure. Continue to monitor hemodynamics and resume as needed. 8. Hypothyroidism. Continue Synthroid 50 mcg p.o. daily. 9. Anxiety disorder. Xanax 0.5 mg p.o. b.i.d on hold due to borderline low blood pressure. 10. CKD stage II. 11. Prophylaxis. Continue Protonix for GI prophylaxis. DVT prophylaxis contraindicated as the patient presented with likely upper GI bleed. CODE STATUS: Full code. Zelalem Brambila MD MTDD
--- NOTE | 2018-11-26 10:58 | CARD ---
APPROVED REPORT Date of service: 11/25/2018 EKG Measurement Heart [id number] <Conclusion> Atrial fibrillation with slow ventricular response Nonspecific ST and T wave abnormality, probably digitalis effect Prolonged QT Abnormal ECG
[2018-11-26] MEDS ORDERED: Barium Sulfate Susp 2.1% w/v, 2.0% w/w 450 mL Bottle PO ONE (12:42)
--- NOTE | 2018-11-26 13:45 | CON ---
DATE: 11/26/2018 GASTROENTEROLOGY CONSULTATION REQUESTING PHYSICIAN: Zelalem Brambila MD REASON FOR CONSULTATION: I have been asked to see this 63-year-old female with a history of dilated cardiomyopathy, paroxysmal atrial fibrillation, hypertension, CKD stage 3, anxiety disorder, alcohol-induced cirrhosis of the liver, who comes to the hospital with generalized weakness and a syncopal episode at home. The patient apparently fell in the bathroom after becoming lightheaded. She was brought to the hospital by EMS. Routine blood work in the emergency room showed her to be profoundly anemic with a hemoglobin of 5.4. She denies any overt rectal bleeding, melena, nausea, vomiting, hematemesis or abdominal pain. The patient has been taking ibuprofen for headaches. She is known to have a gastric ulcer with grade 1 esophageal varices and portal hypertensive gastropathy. The patient had a similar presentation back in 07/2018. Upper endoscopy at that time revealed the gastric ulcer, grade 1 esophageal varices and portal hypertensive gastropathy. She denies any palpitations, shortness of breath or chest pain. She has refused colonoscopy over the last several months. She did have a colonoscopy approximately 5 years ago. PAST MEDICAL HISTORY: As above. Again, she has a history of alcohol-induced cirrhosis of the liver, dilated cardiomyopathy, paroxysmal atrial fibrillation, chronic kidney disease stage 3, anxiety disorder, psoriasis, hypothyroidism and hypertension. PAST SURGICAL HISTORY: Notable for transurethral resection of bladder tumor, D&C, , breast augmentation. FAMILY HISTORY: Noncontributory. SOCIAL HISTORY: The patient consumes alcohol occasionally. She does have a history of alcoholism. REVIEW OF SYSTEMS: A 14-point review of systems is notable for syncope and generalized weakness. MEDICATIONS AT HOME: Include Protonix, sotalol, Lasix, Feosol, Synthroid, lisinopril and Xanax. PHYSICAL EXAMINATION: GENERAL: Middle-aged female appearing pale, in no acute distress. VITAL SIGNS: Reveal temperature of 98.4, blood pressure 100/66, heart rate of 66. HEENT: Reveal sclerae to be white. Conjunctivae pale. NECK: Supple. CHEST: Reveals distant breath sounds. HEART: Reveals a irregular rate. ABDOMEN: Soft, nontender. No mass. EXTREMITIES: No edema. LABORATORY DATA: Reveal chloride 111, bicarb of 15, BUN 86, creatinine 2.6. AST, ALT, alk phos were all normal. CBC reveals hemoglobin of 7.9 after 2 units of packed red blood cells. White blood cell count 4.2, platelet count of 144,000. Coags reveal PT 14.5, INR 1.28. IMPRESSION: A 63-year-old female with alcohol-induced cirrhosis of the liver, chronic recurrent severe anemia, history of gastric ulcer, esophageal varices and portal hypertensive gastropathy, who comes to the hospital with a syncopal episode at home and found to be profoundly anemic with a hemoglobin of 5.4. She denies any symptoms of overt gastrointestinal bleeding. RECOMMENDATIONS: 1. We will transfuse 2 more units of packed red blood cells, given the history of the patient's dilated cardiomyopathy. 2. We will schedule the patient for an upper endoscopy for the morning. 3. Check stool for occult blood. 4. We will request CT scan of the abdomen and pelvis to rule out any masses throughout the GI tract or signs of lymphoma. Conner Kate MD
--- NOTE | 2018-11-26 18:12 | CT ---
Date of service: 11/26/2018 PROCEDURE: CT Abdomen and Pelvis with contrast HISTORY: cirrosis,anemia, atrial fibrillation and hypokalemia COMPARISON: 03/25/2018. CT abdomen and pelvis TECHNIQUE: Oral contrast only. Radiation dose: Total exam DLP = <inf_radiation_dlp> mGy-cm. This CT exam was performed using one or more of the following dose reduction techniques: Automated exposure control, adjustment of the mA and/or kV according to patient size, and/or use of iterative reconstruction technique. FINDINGS: LOWER THORAX: Incompletely visualized cardiomegaly. No visible/significant pericardial effusion. LIVER: Cirrhotic liver common no focal masses. No change GALLBLADDER AND BILE DUCTS: Cholelithiasis without CT evidence of acute cholecystitis. PANCREAS: Unremarkable. No gross lesion or ductal dilatation. SPLEEN: Unremarkable. ADRENALS: Unremarkable. No mass. KIDNEYS AND URETERS: Unremarkable. No hydronephrosis. No solid mass. VASCULATURE: Atherosclerotic calcification and mural plaque present. Findings are seen throughout the aorta, a non aneurysmal BOWEL: Unremarkable. No obstruction. No gross mural thickening. APPENDIX: Normal appendix. PERITONEUM: Small volume intra-abdominal and pelvic ascites similar in quantity to that seen previously. No free air. LYMPH NODES: Unremarkable. No enlarged lymph nodes. BLADDER: Unremarkable. REPRODUCTIVE: Anteverted uterus containing fundal fibroid which is densely calcified. BONES: No acute fracture. OTHER FINDINGS: Unilateral, left inguinal hernia containing fluid. This was identified on the prior study as well. IMPRESSION: Stable findings with respect to the liver. Approximately stable volume of abdominal and pelvic ascites with fluid in the left inguinal canal. Cholelithiasis without CT evidence of acute cholecystitis. Overall, no significant interval change
[2018-11-26] MEDS ORDERED: Lidocaine 5% Patch TD ONE (22:50)
[2018-11-27] MEDS: Sodium Chloride 0.9% 1,000 ML IV SCH ×5 (01:10→13:10)
[2018-11-27] MEDS: Pantoprazole 40mg/100mL NS 40 MG/100 ML BAG IVPB SCH ×4 (01:11→10:35)
[2018-11-27] MEDS: Levothyroxine 50 MCG TAB PO SCH (06:13)
[2018-11-27 07:16] LABS: BASO # 0.06 K/mm3 (0.0-2.0); BASO % 1.6 % (0.0-3.0); EOS % 1.1 % (1.5-5.0); LYMPH % 26.6 % (22.0-35.0); MEAN CELL VOLUME 100.6 fl (80.0-105.0); MEAN CORPUSCULAR HEMOGLOBIN 33.5 pg (25.0-35.0); MEAN CORPUSCULAR HGB CONC 33.3 g/dl (31.0-37.0); MEAN PLATELET VOLUME 9.3 fl (7.0-11.0); MONO # 0.6 (0.1-0.6); MONO % 14.9 % (1.0-6.0); RBC 3.25 10^6/uL (3.5-6.1); RED CELL DISTRIBUTION WIDTH 23.7 % (11.5-14.5); WHITE BLOOD COUNT 3.7 10^3/uL (4.5-11.0)
[2018-11-27 07:21] LABS: HEMOGLOBIN 10.9 g/dL (12.0-16.0)
[2018-11-27 07:33] LABS: ALB/GLOB RATIO 1.1 (1.1-1.8); ALBUMIN 3.4 g/dL (3.0-4.8); CALCIUM 8.5 mg/dL (8.4-10.5)
--- NOTE | 2018-11-27 10:44 | PN ---
SUBJECTIVE: The patient was seen and examined at bedside on the telemetry ocampo. No acute events overnight. She remains afebrile and hemodynamically stable. The patient is s/p transfusion of an additional 2 units of PRBCs with no complications and is pending EGD with Dr. Kate later this morning. Overall she feels ok and offers no complaints. OBJECTIVE: VITAL SIGNS: Temperature 98.5, pulse 62, blood pressure 119/77, respiratory rate 18, oxygen saturation 95% on room air. GENERAL: No apparent distress. HEENT: PERRL, EOMI. No scleral icterus. Conjunctival pallor is noted. NECK: No JVD. LUNGS: Clear to auscultation. CARDIOVASCULAR: Regular rate and rhythm. Normal S1 and S2. Grade II/ murmur to LLSB. ABDOMEN: Normoactive bowel sounds. Soft, nontender, nondistended. EXTREMITIES: No edema. NEUROLOGIC: Awake, alert, and oriented x 3. No focal motor deficits. LABORATORY DATA: WBC 3.7, hemoglobin 11, hematocrit 33, platelets 128. Sodium 136, potassium 4, chloride 112, bicarb 15, BUN 77, creatinine 2.7, glucose 98. IMAGING STUDIES: CT of the abdomen and pelvis with p.o. contrast demonstrated cirrhotic liver, but otherwise no acute pathology. ASSESSMENT: The patient is a 63-year-old woman with a past medical history of alcoholic cirrhosis, portal hypertensive gastropathy, esophageal varices and gastric angioectasias who was admitted s/p syncopal episode for management of severe symptomatic anemia suspected secondary to upper GI bleed. PLAN: 1. Severe symptomatic anemia likely secondary to upper GI bleed. The patient is s/p transfusion of an additional 2 units of PRBCs with an appropriate response in Hb. Input from Dr. Kate noted. She is pending EGD today. Continue Feosol 324 mg p.o. t.i.d. 2. Alcoholic cirrhosis. The patient has been extensively counseled on the adverse health effects of alcohol abuse and the need to abstain from alcohol given her underlying comorbidities. 3. Esophageal varices. 4. Portal hypertensive gastropathy. 5. Dilated cardiomyopathy. Lisinopril 2.5 mg p.o. daily and Lasix 20 mg p.o. b.i.d. remain on hold given borderline low blood pressure. 6. Paroxysmal AFib. The patient remains rate-controlled. Sotalol 80 mg p.o. b.i.d. remains on hold due to borderline low blood pressure. She is not on anticoagulation therapy due to history of GI bleed. 7. Hypertension. As above, antihypertensives remain on hold due to borderline low blood pressure. We will continue to monitor hemodynamics and resume as needed. 8. Hypothyroidism. Continue Synthroid 50 mcg p.o. daily. 9. Anxiety disorder. Xanax 0.5 mg p.o. b.i.d. on hold due to borderline low blood pressure. 10. CKD stage II. Renal function remains at baseline. 11. Prophylaxis. Continue Protonix for GI prophylaxis. DVT prophylaxis contraindicated as the patient presented with likely upper GI bleed. CODE STATUS: Full code. Zelalem Brambila MD MTDD
[2018-11-27] MEDS ORDERED: Propofol 10 mg/ml Inj (20 ML) ONE (12:10)
[2018-11-27] MEDS ORDERED: Lidocaine PF 2% (5 ml) Inj (For Cardiac Arrhy) ONE (12:10)
[2018-11-27] MEDS ORDERED: Simethicone 40 mg/0.6 ml Liquid (30 ml) ONE (12:45)
[2018-11-27] MEDS ORDERED: Sodium Chloride 0.9% 1,000 ML IV SCH (13:00)
[2018-11-27] MEDS: Oxycodone/Acetaminophen 5/325 mg Tab PO PRN ×2 (15:43→22:24)
[2018-11-27] MEDS: Pantoprazole 40 mg EC Tab PO SCH (17:16)
[2018-11-27 18:46] VITALS: RESP 18
[2018-11-28] MEDS: Pantoprazole 40 mg EC Tab PO SCH (05:21)
[2018-11-28] MEDS: Levothyroxine 50 MCG TAB PO SCH (05:21)
[2018-11-28 06:36] VITALS: BP 103/72; PULSE 98; TEMP 98.3; O2SAT 96
[2018-11-28 06:52] LABS: ALBUMIN 3.5 g/dL (3.0-4.8); CALCIUM 8.8 mg/dL (8.4-10.5)
[2018-11-28 06:53] LABS: ALB/GLOB RATIO 1.2 (1.1-1.8)
[2018-11-28 08:31] LABS: BASO # 0.03 K/mm3 (0.0-2.0); BASO % 0.7 % (0.0-3.0); EOS # 0.1 (0.0-0.7); EOS % 1.1 % (1.5-5.0); HEMOGLOBIN 11.2 g/dL (12.0-16.0); LYMPH # 1.2 (1.2-3.4); LYMPH % 26.9 % (22.0-35.0); MEAN CELL VOLUME 103.6 fl (80.0-105.0); MEAN CORPUSCULAR HEMOGLOBIN 33.1 pg (25.0-35.0); MEAN PLATELET VOLUME 9.7 fl (7.0-11.0); MONO # 0.6 (0.1-0.6); MONO % 12.9 % (1.0-6.0); RBC 3.38 10^6/uL (3.5-6.1); RED CELL DISTRIBUTION WIDTH 24.5 % (11.5-14.5); WHITE BLOOD COUNT 4.4 10^3/uL (4.5-11.0)
[2018-11-28] MEDS ORDERED: POLYETHYLENE GLYCOL 3350 17 GM/Dose PACKET PO SCH (10:00)
--- NOTE | 2018-11-28 12:41 | PN ---
SUBJECTIVE: The patient was seen and examined at bedside on the telemetry ocampo. No acute events overnight. She remains afebrile, hemodynamically stable and is doing well s/p EGD. This morning she feels okay, offers no complaints and is looking forward to discharge home. OBJECTIVE: VITAL SIGNS: Temperature 98.3, pulse 98, blood pressure 103/72, respiratory rate 18 and oxygen saturation 96% on room air. GENERAL: No apparent distress. HEENT: PERRL, EOMI. No scleral icterus. Conjunctival pallor is noted. NECK: No JVD. LUNGS: Clear to auscultation. CARDIOVASCULAR: Regular rate and rhythm. Normal S1, S2. Grade II/ murmur to LLSB. ABDOMEN: Normoactive bowel sounds, soft, nontender and nondistended. EXTREMITIES: No edema. NEUROLOGIC: Awake, alert and oriented x 3. No focal motor deficits. LABORATORY DATA: Morning labs are pending. PROCEDURES: EGD demonstrated grade 1 esophageal varices, portal hypertensive gastropathy, multiple nonbleeding gastric ulcers and nonbleeding erosive gastropathy. ASSESSMENT: The patient is a 63-year-old woman with a past medical history of alcoholic cirrhosis, portal hypertensive gastropathy, esophageal varices and gastric angiectasias who was admitted s/p syncopal episode for management of severe symptomatic anemia suspected secondary to upper GI bleed who is now s/p multiple transfusions of PRBCs and s/p EGD. PLAN: 1. Severe symptomatic anemia secondary to upper GI bleed. Input from Dr. Kate noted. EGD reviewed. The patient has been extensively counseled on the need to avoid NSAIDs and alcohol given her underlying pathology. Continue Feosol 324 mg p.o. t.i.d. and Protonix 40 mg p.o. b.i.d. 2. Alcoholic cirrhosis. The patient has been counseled on adverse health effects of alcohol abuse and need to abstain from alcohol. 3. Esophageal varices. 4. Portal hypertensive gastropathy. 5. Gastric ulcers. Continue Protonix 40 mg p.o. b.i.d and avoid NSAIDs. 6. Dilated cardiomyopathy. Will discontinue Lisinopril due to patient's underlying renal insufficiency. The patient to resume Lasix 20 mg p.o. b.i.d. upon discharge. 7. Paroxysmal AFib. The patient remains rate-controlled. The patient to resume Sotalol 80 mg p.o. b.i.d. upon discharge. She is not anticoagulation therapy due to history of GI bleed. 8. Hypertension. The patient to resume Sotalol 80 mg p.o. b.i.d. upon discharge. 9. Hypothyroidism. Continue Synthroid 50 mcg p.o. daily. 10. Anxiety disorder. Continue Xanax 0.5 mg p.o. b.i.d. upon discharge. 11. CKD stage II. 12. Prophylaxis. Continue Protonix for GI prophylaxis. DVT prophylaxis contraindicated given history of upper GI bleed. CODE STATUS: Full code. Zelalem Brambila MD MTDD
--- NOTE | 2018-11-28 13:01 | PN ---
DATE: 11/28/2018 SUBJECTIVE: The patient is sitting up in bed. She denies any overt GI bleeding. She denies weakness, lightheadedness, chest pain, shortness of breath, rectal bleeding, melena, nausea, or vomiting. PHYSICAL EXAMINATION: VITAL SIGNS: Reveal temperature of 98.3, blood pressure 103/72, heart rate 98. HEENT: Reveal sclerae to be white. Conjunctivae pink. NECK: Supple. CHEST: Reveal distant breath sounds. HEART: Exam reveals a regular rate and rhythm. ABDOMEN: Softly distended, nontender. No mass. EXTREMITIES: Show trace pedal edema. LABORATORY DATA: Reveal hemoglobin 11.2, white blood cell count 4.4, platelet count of 151,000. Chemistries reveal BUN 72, creatinine 3.3. AST, ALT, alk phos were all normal. Total bilirubin is a 0.5. IMPRESSION: 1. A 63-year-old female with alcohol-induced cirrhosis of the liver, continued alcohol use with blood alcohol level of 12 on admission to the hospital with recurrent profound anemia, found to have non-bleeding ulcers in the stomach, erosive gastritis, portal hypertensive gastropathy, and grade 1 esophageal varices. The patient continues to drink and take nonsteroidals despite advice against this. 2. Dilated cardiomyopathy. 3. Chronic kidney disease. RECOMMENDATIONS: 1. The patient has been advised to abstain from alcohol and to avoid taking nonsteroidals including aspirin. 2. The patient currently refuses colonoscopy, she states she will get this done electively as an outpatient. 3. Continue pantoprazole 40 mg twice a day. 4. Continue iron 325 mg three times a day. 5. Follow hematocrits closely as an outpatient. Conner Kate MD
--- NOTE | 2018-11-30 01:39 | DS ---
ADMITTING DIAGNOSIS: Severe symptomatic anemia secondary to upper GI bleed. DISCHARGE DIAGNOSIS: Severe symptomatic anemia secondary to upper GI bleed. SECONDARY DIAGNOSES: Alcoholic cirrhosis, esophageal varices, portal hypertensive gastropathy, gastric ulcers, gastric angioectasias, dilated cardiomyopathy, paroxysmal Afib, hypertension, hypothyroidism, anxiety disorder and CKD stage II. CONSULTATIONS: Dr. Kate (Gastroenterology). IMAGING STUDIES: 1. Chest x-ray demonstrated cardiomegaly but otherwise no acute pathology. 2. CT of the head without contrast demonstrated age-related atrophy with mild chronic periventricular white matter ischemic changes but otherwise no acute pathology. 3. CT of the abdomen and pelvis with p.o. contrast demonstrated a cirrhotic liver with no focal masses and cholelithiasis without acute cholecystitis but otherwise no acute pathology. PROCEDURE: 1. EGD demonstrated grade 1 esophageal varices with portal hypertensive gastropathy, gastric ulcers and nonbleeding erosive gastropathy. 2. Transfusion of 4 units of PRBCs. HISTORY OF PRESENT ILLNESS: The patient is a 63-year-old woman with a past medical history of alcoholic cirrhosis, portal hypertensive gastropathy, grade 1 esophageal varices and gastric angioectasias with prior admissions for severe symptomatic anemia secondary to upper GI bleed who presented s/p syncopal episode. She was ambulating to the bathroom when she developed a sudden onset of lightheadedness and the next thing she recalled was waking up on the bathroom floor. She was brought to [facility] ED by EMS and where she was found to be afebrile and hemodynamically stable, but pale on examination. Laboratory studies disclosed profound anemia with a Hb of 5.4. She was typed and crossmatched for 2 units of PRBCs and subsequently admitted to the telemetry ocampo for continued management of severe symptomatic anemia. Of note, the patient states that she has been taking NSAIDs for headaches despite being counseled on multiple occasions to refrain from NSAIDs given her history of GI bleed and underlying pathology. She furthermore admits to drinking alcohol despite being counseled on the need to abstain from alcohol consumption. HOSPITAL COURSE: Upon admission to the telemetry ocampo the patient was started on a Protonix drip. Serial hematocrits were monitored and she was maintained n.p.o., pending GI evaluation with Dr. Kate. After evaluation with Dr. Kate, a CT of the abdomen and pelvis was ordered to rule out a lymphoma with findings as described above. She was taken to the endoscopy suite on hospital day #2 where EGD demonstrated multiple nonbleeding gastric ulcers and nonbleeding erosive gastropathy. The Protonix drip was changed to Protonix 40 mg IV b.i.d. and she was again counseled on the need to abstain from alcohol consumption and refrain from NSAID use. Her diet was restarted and tolerated without difficulty. Given her hemodynamic stability and appropriate response in hemoglobin s/p transfusion of 4 units of PRBC, she was cleared for discharge to home. CONDITION: Good, improved. DISPOSITION: Home. DISCHARGE MEDICATIONS: Sotalol 40 mg p.o. b.i.d., Lasix 20 mg p.o. b.i.d., Protonix 40 mg p.o. b.i.d., Feosol 325 mg p.o. t.i.d., Synthroid 50 mcg p.o. daily and Xanax 0.5 mg p.o. b.i.d. DISCHARGE INSTRUCTIONS: The patient was advised to refrain from NSAIDs and to adhere to postprocedure instructions as per Dr. Kate. She was also advised to abstain from alcohol consumption and advised that if she has any recurrence of her symptoms to present to her PMD or the nearest ED immediately. FOLLOWUP: The patient to follow up with her PMD within 1 week of discharge to repeat a CBC to reassess her Hb. The patient to follow up with Dr. aKte as scheduled. Zelalem Brambila MD GI[facility]NA
== END 2018-11-28 11:39 | disposition home or self-care (01) | DRG 378 ==
LOC: ED 10:26 → ERH 16:14 → 2RNO 22:27
PROVIDERS: ADMIT Student in an Organized Health Care Education/Training Program; ATTEND Student in an Organized Health Care Education/Training Program
PROC: 30233N1 Transfusion of Nonautologous Red Blood Cells into Peripheral Vein, Percutaneous Approach (ICD-10-PCS; principal; 2018-11-25)
PROC: 0DJ08ZZ Inspection of Upper Intestinal Tract, Via Natural or Artificial Opening Endoscopic (ICD-10-PCS; 2018-11-27)
DX: K92.2 Gastrointestinal hemorrhage, unspecified (principal); N39.0 Urinary tract infection, site not specified; K76.6 Portal hypertension; I42.0 Dilated cardiomyopathy; D50.0 Iron deficiency anemia secondary to blood loss (chronic); K70.30 Alcoholic cirrhosis of liver without ascites; I85.10 Secondary esophageal varices without bleeding; K31.89 Other diseases of stomach and duodenum; K25.9 Gastric ulcer, unspecified as acute or chronic, without hemorrhage or perforation; I12.9 Hypertensive chronic kidney disease with stage 1 through stage 4 chronic kidney disease, or unspecified chronic kidney disease; N18.3 Chronic kidney disease, stage 3 (moderate); E87.6 Hypokalemia; E03.9 Hypothyroidism, unspecified; I48.0 Paroxysmal atrial fibrillation; K29.60 Other gastritis without bleeding; F41.9 Anxiety disorder, unspecified; L40.9 Psoriasis, unspecified; F10.20 Alcohol dependence, uncomplicated; Y90.0 Blood alcohol level of less than 20 mg/100 ml; M25.562 Pain in left knee; R55 Syncope and collapse

== ENCOUNTER 2018-12-06 13:18 | Inpatient (IN) | payer BC ==
[2018-12-06 13:21] VITALS: BMI 25.4
[2018-12-06] MEDS ORDERED: Oxycodone/Acetaminophen 5/325 mg Tab PO STA (14:06)
--- NOTE | 2018-12-06 14:45 | ED PDOC ---
Arrival/HPI <Salvatore Ghotra - Last Filed: 12/06/18 17:23> - General Historian: Patient - History of Present Illness Narrative History of Present Illness (Text): 12/06/18 14:41 63yr old female presents today with left leg pain. pt states she fell 2 weeks ago causing her to come to the Er. pt states she was admitted to the hospital and had xrays of the leg. pt states she was told nothing was broken. pt states she is still having pain to the left leg and slight right leg pain. pt states she has been taking tylenol for pain and applying icyhot with some improvement. pt denies fever/chills. no cp or sob. pt states the swelling in the leg has decreased. pt denies dizziness or weakness. no other complaints. pt denies back pain. <Nurys Strong - Last Filed: 12/06/18 17:44> - General Chief Complaint: Lower Extremity Problem/Injury Time Seen by Provider: 12/06/18 13:19 Past Medical History - Provider Review Nursing Documentation Reviewed: Yes - Travel History Have you recently traveled outside [place] w/in the past 3 mons?: No - Infectious Disease Hx of Infectious Diseases: None - Tetanus Immunization Tetanus Immunization: Unknown - Reproductive Menopause: Yes - Cardiac Hx Cardiac Disorders: Yes Hx Hypertension: Yes (taken off meds by pmd) Hx Peripheral Edema: Yes (ble +1) - Pulmonary Hx Respiratory Disorders: Yes (PLEURAL EFFUSION) - Neurological Hx Neurological Disorder: Yes Hx Dizziness: Yes - HEENT Hx HEENT Disorder: No Hx Difficulty Chewing: No - Renal Hx Renal Disorder: Yes Other/Comment: bladder stones - Endocrine/Metabolic Hx Endocrine Disorders: No - Hematological/Oncological Hx Blood Disorders: Yes Hx Anemia: Yes (2009 due to blood loss) - Integumentary Hx Dermatological Disorder: Yes Hx Psoriasis: Yes Other/Comment: ble skin discolorations - Musculoskeletal/Rheumatological Hx Falls: No - Gastrointestinal Hx Gastrointestinal Disorders: Yes (ASCITES, gastritis) Hx Liver Failure: Yes (cirrhosis dx 5 yrs ago) - Genitourinary/Gynecological Hx Genitourinary Disorders: No - Psychiatric Hx Psychophysiologic Disorder: No Hx Emotional Abuse: No Hx Physical Abuse: No Hx Substance Use: No - Surgical History Other/Comment: colonoscopy, paracenthesis "4 yrs ago" stated pt - Anesthesia Hx Anesthesia: Yes Hx Anesthesia Reactions: Yes (NAUSEA WEAKNESS;"WOKE UP DURING C SECTION") Hx Malignant Hyperthermia: No - Suicidal Assessment Feels Threatened In Home Enviroment: No <Nurys Strong - Last Filed: 12/06/18 17:44> Family/Social History Family/Social History: Unknown Family HX <Salvatore Ghotra - Last Filed: 12/06/18 17:23> - Physician Review Nursing Documentation Reviewed: Yes Family/Social History: Unknown Family HX Smoking Status: Never Smoked Hx Alcohol Use: Yes (1 glass wine on a weekend) Hx Substance Use: No Hx Substance Use Treatment: No <Nurys Strong - Last Filed: 12/06/18 17:44> Allergies/Home Meds <Salvatore Ghotra - Last Filed: 12/06/18 17:23> <Nurys Strong - Last Filed: 12/06/18 17:44> Allergies/Adverse Reactions: Allergies No Known Allergies Allergy (Verified 02/02/15 13:20) Home Medications: Home Meds Medication Instructions Recorded Confirmed Ascorbic Acid [Vitamin C 500 mg 1 tab PO DAILY 03/24/18 12/06/18 Tab] Furosemide [Lasix] 1 tab PO BID 03/24/18 12/06/18 Ibuprofen [Motrin Tab] 1 tab PO Q8H 03/24/18 12/06/18 Sotalol [Betapace] 1 tab PO BID 03/24/18 12/06/18 Review of Systems - Review of Systems Constitutional: absent: Fatigue, Fevers Respiratory: absent: SOB, Cough Cardiovascular: absent: Chest Pain, Palpitations Gastrointestinal: absent: Abdominal Pain, Nausea, Vomiting, Hematochezia, Hematemesis Musculoskeletal: Arthralgias. absent: Back Pain, Neck Pain Skin: absent: Rash, Pruritis Neurological: absent: Headache, Dizziness Psychiatric: absent: Anxiety, Depression <Nurys Storng - Last Filed: 12/06/18 17:44> Physical Exam Vital Signs Temp Pulse Resp BP Pulse Ox 12/06/18 16:56 101 H 18 135/93 H 100 12/06/18 13:47 96 H 18 146/91 H 99 12/06/18 13:18 97.6 F 115 H 18 100 <Salvatore Ghotra - Last Filed: 12/06/18 17:23> Vital Signs Reviewed: Yes Vital Signs Temp Pulse Resp BP Pulse Ox 12/06/18 13:47 96 H 18 146/91 H 99 12/06/18 13:18 97.6 F 115 H 18 100 Temperature: Afebrile Blood Pressure: Hypertensive Pulse: Tachycardic Respiratory Rate: Normal Appearance: Positive for: Well-Appearing, Non-Toxic, Comfortable Pain Distress: None Mental Status: Positive for: Alert and Oriented X 3 - Systems Exam Head: Present: Atraumatic Neck: Present: Normal Range of Motion Respiratory/Chest: Present: Clear to Auscultation Cardiovascular: Present: Regular Rate and Rhythm. No: Murmurs, Tachycardic, Bradycardic, Muffled Abdomen: No: Tenderness, Rebound Back: Present: Normal Inspection Upper Extremity: Present: Normal ROM Lower Extremity: Present: CALF TENDERNESS, NORMAL PULSES, Tenderness (left leg; + ecchymosis and edema noted to the knee, + ttp over anterior knee. + calf tenderness. + 1+ edema. swelling noted to the ankle. no erythema; sensation and distal pulses intact. cap refill <2. ), Swelling, Neurovascularly Intact, Capillary Refill < 2 s. No: Erythema Neurological: Present: GCS=15, Speech Normal Skin: Present: Warm, Dry Psychiatric: Present: Alert, Oriented x 3 <Nurys Strong T - Last Filed: 12/06/18 17:44> Medical Decision Making - Lab Interpretations Lab Results: Total Bilirubin 0.6 mg/dL (0.2-1.3) 12/06/18 14:40 AST 35 U/L (14-36) 12/06/18 14:40 ALT 16 U/L (7-56) 12/06/18 14:40 Alkaline Phosphatase 127 U/L (38-126) H D 12/06/18 14:40 Total Protein 7.0 g/dL (5.8-8.3) 12/06/18 14:40 Albumin 3.8 g/dL (3.0-4.8) 12/06/18 14:40 Globulin 3.3 gm/dL 12/06/18 14:40 Albumin/Globulin Ratio 1.2 (1.1-1.8) 12/06/18 14:40 Urine Color Yellow (YELLOW) 12/06/18 16:32 Urine Appearance Clear (CLEAR) 12/06/18 16:32 Urine pH 6.0 (4.7-8.0) 12/06/18 16:32 Ur Specific Ward 1.020 (1.005-1.035) 12/06/18 16:32 Urine Protein 100 mg/dL (<30 mg/dL) H 12/06/18 16:32 Urine Glucose (UA) Negative mg/dL (NEGATIVE) 12/06/18 16:32 Urine Ketones Negative mg/dL (NEGATIVE) 12/06/18 16:32 Urine Blood Moderate (NEGATIVE) H 12/06/18 16:32 Urine Nitrate Negative (NEGATIVE) 12/06/18 16:32 Urine Bilirubin Negative (NEGATIVE) 12/06/18 16:32 Urine Urobilinogen 0.2 E.U./dL (<1 E.U./dL) 12/06/18 16:32 Ur Leukocyte Esterase Negative Young/uL (NEGATIVE) 12/06/18 16:32 Urine RBC 1 - 3 /hpf (0-2) H 12/06/18 16:32 Urine WBC None /hpf (0-6) 12/06/18 16:32 Ur Epithelial Cells 1 - 3 /hpf (0-5) 12/06/18 16:32 - RAD Interpretation Radiology Orders: 12/06/18 14:03 DUPLEX LOWER EXTRM VEIN BILAT [US] Stat 12/06/18 15:16 CHEST PORTABLE [RAD] Stat - Medication Orders Current Medication Orders: Discontinued Medications Oxycodone/Acetaminophen (Percocet 5/325 Mg Tab) 1 tab PO STAT STA Stop: 12/06/18 14:07 Last Admin: 12/06/18 14:26 Dose: 1 tab MAR Pain Assessment Document 12/06/18 14:26 [facility] (Rec: 12/06/18 14:27 [id number]) Pain Reassessment Is this a pain reassessment? No <Salvatore Ghotra - Last Filed: 12/06/18 17:23> ED Course and Treatment: 12/06/18 14:45 63yr old female with left leg pain x 2 weeks. cbcl hgb; 10 cmp: elevated bnp/cr. 4.3 xrays for 11/25 reviewed. no fracture of knee, ankle, foot. pt given percocet for pain. cxr; cardiomegaly duplex venous; both legs; no dvt 12/06/18 17:[address] polk; will admit for worsening renal insufficiency leg pain and swelling with inability to ambulate Impression: Renal insufficiency, leg pain, swelling, inability to ambulate Admit 12/06/18 17:42 - RAD Interpretation Radiology Orders: 12/06/18 14:03 DUPLEX LOWER EXTRM VEIN BILAT [US] Stat - Medication Orders Current Medication Orders: Discontinued Medications Oxycodone/Acetaminophen (Percocet 5/325 Mg Tab) 1 tab PO STAT STA Stop: 12/06/18 14:07 Last Admin: 12/06/18 14:26 Dose: 1 tab MAR Pain Assessment Document 12/06/18 14:26 [facility] (Rec: 12/06/18 14:27 [id number]) Pain Reassessment Is this a pain reassessment? No <Nurys Strong - Last Filed: 12/06/18 17:44> - PA / OTOLARYNGOLOGY TEACHER / Resident Statement MD/DO has reviewed & agrees with the documentation as recorded. <Salvatore Ghotra - Last Filed: 12/06/18 17:23> Disposition/Present on Arrival - Present on Arrival Any Indicators Present on Arrival: No History of DVT/PE: No History of Uncontrolled Diabetes: No Urinary Catheter: No History of Decub. Ulcer: No - Disposition Have Diagnosis and Disposition been Completed?: Yes <Salvatore Ghotra - Last Filed: 12/06/18 17:23> - Present on Arrival Any Indicators Present on Arrival: No History of DVT/PE: No History of Uncontrolled Diabetes: No Urinary Catheter: No History of Decub. Ulcer: No History Surgical Site Infection Following: None - Disposition Have Diagnosis and Disposition been Completed?: Yes Disposition Time: 15:43 Patient Plan: Admission <Nurys Strong - Last Filed: 12/06/18 17:44> - Disposition Diagnosis: Renal insufficiency, Leg pain, Leg swelling Disposition: HOSPITALIZED Patient Problems: Current Active Problems Problem Status Onset Leg pain Acute Leg swelling Acute Renal insufficiency Acute Condition: FAIR Forms: [employer] (Sami)
[2018-12-06 14:57] LABS: ALB/GLOB RATIO 1.2 (1.1-1.8); ALBUMIN 3.8 g/dL (3.0-4.8); CALCIUM 9.1 mg/dL (8.4-10.5)
[2018-12-06 15:14] LABS: BASO # 0.05 K/mm3 (0.0-2.0); BASO % 1.5 % (0.0-3.0); EOS % 0.6 % (1.5-5.0); HEMOGLOBIN 10.1 g/dL (12.0-16.0); LYMPH # 0.7 (1.2-3.4); LYMPH % 20.6 % (22.0-35.0); MEAN CELL VOLUME 102.7 fl (80.0-105.0); MEAN CORPUSCULAR HEMOGLOBIN 33.6 pg (25.0-35.0); MEAN CORPUSCULAR HGB CONC 32.7 g/dl (31.0-37.0); MEAN PLATELET VOLUME 9.5 fl (7.0-11.0); MONO # 0.3 (0.1-0.6); MONO % 8.8 % (1.0-6.0); RBC 3.01 10^6/uL (3.5-6.1); WHITE BLOOD COUNT 3.4 10^3/uL (4.5-11.0)
[2018-12-06] MEDS ORDERED: cefTRIAXone 1 gm 1 GM/100 ML BAG IVPB STA (15:51)
--- NOTE | 2018-12-06 16:26 | RAD ---
HISTORY: leg swelling, renal insufficiency COMPARISON: Chest x-ray performed 11/25/18 TECHNIQUE: Chest, one view. FINDINGS: LUNGS: No focal consolidation. Please note that chest x-ray has limited sensitivity for the detection of pulmonary masses. PLEURA: No significant pleural effusion identified. No definite pneumothorax . CARDIOVASCULAR: Cardiomegaly. Atherosclerotic calcification of the aorta. OSSEOUS STRUCTURES: Degenerative changes. Left 4th, 5th, 6th rib fracture deformities appear chronic. VISUALIZED UPPER ABDOMEN: Unremarkable. OTHER FINDINGS: Soft tissue attenuation limits evaluation of the lung bases. IMPRESSION: Cardiomegaly.
[2018-12-06 16:46] LABS: URINE APPEARANCE CLEAR (CLEAR); URINE BILIRUBIN NEGATIVE (NEGATIVE); URINE BLOOD MODERATE (NEGATIVE); URINE COLOR YELLOW (YELLOW); URINE GLUCOSE (UA) NEGATIVE (NEGATIVE); URINE LEUKOCYTE ESTERASE NEGATIVE Leu/uL (NEGATIVE); URINE PROTEIN 100 mg/dL (<30 mg/dL); URINE UROBILINOGEN 0.2 E.U./dL (<1 E.U./dL)
[2018-12-06] MEDS: Oxycodone/Acetaminophen 5/325 mg Tab PO PRN (21:35)
[2018-12-06] MEDS: Sodium Chloride 0.9% 1,000 ML IV SCH (22:55)
[2018-12-07] MEDS: Sodium Chloride 0.9% 1,000 ML IV SCH ×2 (06:18→18:47)
[2018-12-07] MEDS: Levothyroxine 50 MCG TAB PO SCH (06:21)
[2018-12-07] MEDS: Pantoprazole 40 mg EC Tab PO SCH ×2 (06:21→18:47)
[2018-12-07] MEDS: Oxycodone/Acetaminophen 5/325 mg Tab PO PRN ×3 (06:28→21:58)
[2018-12-07 07:24] LABS: BASO # 0.08 K/mm3 (0.0-2.0); BASO % 2.3 % (0.0-3.0); EOS % 1.1 % (1.5-5.0); HEMOGLOBIN 9.7 g/dL (12.0-16.0); LYMPH % 29.5 % (22.0-35.0); MEAN CELL VOLUME 103.4 fl (80.0-105.0); MEAN CORPUSCULAR HEMOGLOBIN 33.1 pg (25.0-35.0); MEAN PLATELET VOLUME 9.1 fl (7.0-11.0); MONO # 0.5 (0.1-0.6); MONO % 13.9 % (1.0-6.0); RBC 2.93 10^6/uL (3.5-6.1); RED CELL DISTRIBUTION WIDTH 23.1 % (11.5-14.5); WHITE BLOOD COUNT 3.5 10^3/uL (4.5-11.0)
[2018-12-07 07:52] LABS: ALB/GLOB RATIO 1.1 (1.1-1.8); ALBUMIN 3.5 g/dL (3.0-4.8); CALCIUM 9.2 mg/dL (8.4-10.5)
--- NOTE | 2018-12-07 12:05 | CP.PCM.CON ---
History of Present Illness - History of Present Illness History of Present Illness: RENAL consult for CHARLIE 63 yo F w/ pmh of cirrhosis (etoh), anemia, CHF, afib, CKD that presented w/ leg pain. She complains of severe leg pain- mostly left sided. She was found to have CHARLIE in ER and brought up for further eval. She denies n/v. She denies fever or chills. Slightly reduced po intake. She is taking percocet for pain. She was previously taking NSAID's but she states she stopped last admission. She recently was admitted for cirrhosis/transfusion and had CT w/ iv contrast done. ros: a full detailed ROS is negative except as above pmh: cirrohsis ckd chf afib meds: as below all: nkda famhx: no esrd sochx as below pe:pe: vs as below gen: nad sclera: anicteric op: clear neck: supple cv: +s1+s2 no rub abd: soft nt nd lungs :reduced at bases abd: soft nt nd no organomegaly ,mildly distended ext: no edema neuro: a+Ox3 no focal defecit psych: flat skin + rash on legs imp: ARF /Cirrhosis/ Anemia/ acidosis/ leg pain plan: CHARLIE etiology not clear yet. Possibily Contrast induced nephropathy from CT IV contrast done on 11/26. APpears that cr has been rising since that date. UA w/ proteinuria present will quantify. Will check renal/bladder us to make sure no obstructive componenet. ? HRS Type II? - will check urine na. Will trial give albumin for volume expansion, renal perfusion. recc check ABG given low bicarb will start oral bicarb in interim monitor h and h. Past Patient History - Infectious Disease Hx of Infectious Diseases: None - Tetanus Immunizations Tetanus Immunization: Unknown - Past Social History Smoking Status: Light Smoker < 10 Cigarettes Daily - CARDIAC Hx Cardiac Disorders: Yes Hx Hypertension: Yes (taken off meds by pmd) Hx Peripheral Edema: Yes (ble +1) - PULMONARY Hx Respiratory Disorders: Yes (PLEURAL EFFUSION) - NEUROLOGICAL Hx Neurological Disorder: Yes Hx Dizziness: Yes - HEENT Hx HEENT Problems: No Hx Difficulty Chewing: No - RENAL Hx Chronic Kidney Disease: Yes Other/Comment: bladder stones - ENDOCRINE/METABOLIC Hx Endocrine Disorders: No - HEMATOLOGICAL/ONCOLOGICAL Hx Blood Disorders: Yes Hx Anemia: Yes (2009 due to blood loss) - INTEGUMENTARY Hx Dermatological Problems: Yes Hx Psoriasis: Yes Other/Comment: ble skin discolorations - MUSCULOSKELETAL/RHEUMATOLOGICAL Hx Falls: Yes - GASTROINTESTINAL Hx Gastrointestinal Disorders: Yes (ASCITES, gastritis) Hx Liver Failure: Yes (cirrhosis dx 5 yrs ago) - GENITOURINARY/GYNECOLOGICAL Hx Genitourinary Disorders: No - PSYCHIATRIC Hx Psychophysiologic Disorder: No Hx Emotional Abuse: No Hx Physical Abuse: No Hx Substance Use: No - SURGICAL HISTORY Other/Comment: colonoscopy, paracenthesis "4 yrs ago" stated pt - ANESTHESIA Hx Anesthesia: Yes Hx Anesthesia Reactions: Yes (NAUSEA WEAKNESS;"WOKE UP DURING C SECTION") Hx Malignant Hyperthermia: No Meds Allergies/Adverse Reactions: Allergies Allergy/AdvReac Type Severity Reaction Status Date / Time No Known Allergies Allergy Verified 02/02/15 13:20 - Medications Medications: Current Medications Diphenhydramine HCl (Benadryl) 50 mg PO Q6 PRN PRN Reason: prurits Sodium Chloride (Sodium Chloride 0.9%) 1,000 mls @ 100 mls/hr IV .Q10H [facility] Last Admin: 12/07/18 06:18 Dose: 100 mls/hr Levothyroxine Sodium (Synthroid) 50 mcg PO 0600 [facility] Last Admin: 12/07/18 06:21 Dose: 50 mcg Oxycodone/Acetaminophen (Percocet 5/325 Mg Tab) 1 tab PO Q4H PRN PRN Reason: Pain, moderate (4-7) Stop: 12/10/18 10:09 Last Admin: 12/07/18 10:48 Dose: 1 tab Pantoprazole Sodium (Protonix Ec Tab) 40 mg PO 0600,1600 [facility] Last Admin: 12/07/18 06:21 Dose: 40 mg Sotalol HCl (Betapace) 80 mg PO BID [facility] Last Admin: 12/07/18 09:52 Dose: 80 mg Results - Vital Signs Recent Vital Signs: Last Vital Signs Temp 97.9 F 12/07/18 07:51 Pulse 104 H 12/07/18 09:52 Resp 17 12/07/18 07:51 BP 130/90 12/07/18 09:52 Pulse Ox 98 12/07/18 07:51 - Labs Result Diagrams: 12/07/18 07:00 12/07/18 07:00 Labs: Laboratory Results - last 24 hr 12/06/18 12/06/18 12/06/18 14:40 15:02 16:32 WBC 3.4 L D RBC 3.01 L Hgb 10.1 L Hct 30.9 L MCV 102.7 MCH 33.6 MCHC 32.7 RDW 23.0 H Plt Count 140 MPV 9.5 Neut % (Auto) 68.5 H Lymph % (Auto) 20.6 L Day % (Auto) 8.8 H Eos % (Auto) 0.6 L Baso % (Auto) 1.5 Lymph # (Auto) 0.7 L Day # (Auto) 0.3 Eos # (Auto) 0.0 Baso # (Auto) 0.05 Absolute Neuts (auto) 2.32 Sodium 137 Potassium 4.5 Chloride 111 H Carbon Dioxide 12 L Anion Gap 18 BUN 93 H Creatinine 4.3 H Est GFR ( Amer) 13 Est GFR (Non-Af Amer) 10 Random Glucose 88 Calcium 9.1 Total Bilirubin 0.6 AST 35 ALT 16 Alkaline Phosphatase 127 H D Total Protein 7.0 Albumin 3.8 Globulin 3.3 Albumin/Globulin Ratio 1.2 Urine Color Yellow Urine Appearance Clear Urine pH 6.0 Ur Specific Malone 1.020 Urine Protein 100 H Urine Glucose (UA) Negative Urine Ketones Negative Urine Blood Moderate H Urine Nitrate Negative Urine Bilirubin Negative Urine Urobilinogen 0.2 Ur Leukocyte Esterase Negative Urine RBC 1 - 3 H Urine WBC None Ur Epithelial Cells 1 - 3 12/07/18 12/07/18 07:00 07:00 WBC 3.5 L RBC 2.93 L Hgb 9.7 L Hct 30.3 L MCV 103.4 MCH 33.1 MCHC 32.0 RDW 23.1 H Plt Count 134 MPV 9.1 Neut % (Auto) 53.2 Lymph % (Auto) 29.5 Day % (Auto) 13.9 H Eos % (Auto) 1.1 L Baso % (Auto) 2.3 Lymph # (Auto) 1.0 L Day # (Auto) 0.5 Eos # (Auto) 0.0 Baso # (Auto) 0.08 Absolute Neuts (auto) 1.87 Sodium 136 Potassium 4.5 Chloride 111 H Carbon Dioxide 11 L Anion Gap 19 BUN 93 H Creatinine 4.2 H Est GFR ( Amer) 13 Est GFR (Non-Af Amer) 11 Random Glucose 83 Calcium 9.2 Total Bilirubin 0.5 AST 33 ALT 14 Alkaline Phosphatase 120 Total Protein 6.7 Albumin 3.5 Globulin 3.2 Albumin/Globulin Ratio 1.1 Urine Color Urine Appearance Urine pH Ur Specific Malone Urine Protein Urine Glucose (UA) Urine Ketones Urine Blood Urine Nitrate Urine Bilirubin Urine Urobilinogen Ur Leukocyte Esterase Urine RBC Urine WBC Ur Epithelial Cells
[2018-12-07] MEDS ORDERED: Albumin Human 25% (12.5 gm/50 ml) IV ONE (12:08)
[2018-12-07] MEDS ORDERED: Albumin Human 25% (25 gm/100 ml) IV ONE (13:30)
--- NOTE | 2018-12-07 16:01 | US ---
Date of service: 12/07/2018 PROCEDURE: Ultrasound of the Kidneys HISTORY: arf COMPARISON: None available. TECHNIQUE: Sonogram of the kidneys. FINDINGS: RIGHT KIDNEY: Measures: 9.18 x 4.75 x 5.53 cm. Normal in size, contour and echogenicity. No stone, solid mass lesion or hydronephrosis visualized. LEFT KIDNEY: Measures: 9.82 x 4.75 x 5.29 cm. Normal in size, contour and echogenicity. No stone, solid mass lesion or hydronephrosis visualized. OTHER FINDINGS: Ascites is seen as well as a large gallstone IMPRESSION: Unremarkable renal sonogram. Ascites Gallstone
--- NOTE | 2018-12-07 16:03 | US ---
Date of service: 12/07/2018 PROCEDURE: Ultrasound of the Bladder HISTORY: arf COMPARISON: None available. TECHNIQUE: Sonographic evaluation of the bladder was performed. FINDINGS: Unremarkable without wall thickening or intraluminal debris. No calculus or gross mass lesion. No free fluid in pelvis. Residual volume 217 cc Ureteral jets are not seen. IMPRESSION: Residual volume 217 cc
--- NOTE | 2018-12-07 22:03 | HP ---
HISTORY OF PRESENT ILLNESS: The patient is a 63-year-old woman with a past medical history of alcoholic cirrhosis, portal hypertensive gastropathy, grade 1 esophageal varices and gastric angiectasias who was recently discharged after an admission for severe symptomatic anemia secondary to upper GI bleed who presented with persistent ankle pain. On her previous admission, she complained of left knee and right ankle pain s/p a mechanical fall. Imaging studies were unremarkable and the patient was discharged on Tylenol. Since her discharge to home she has reported continued pain to her legs, albeit improved, and some gait instability. Due to these symptoms she opted for ED evaluation. In the ED she was afebrile, hemodynamically stable and with largely unremarkable physical examination. Laboratory studies disclosed CHARLIE on CKD stage II and thus she was admitted for further evaluation. PAST MEDICAL HISTORY: As per HPI, also paroxysmal atrial fibrillation, dilated cardiomyopathy, hypertension, hypothyroidism, CKD stage II, anxiety disorder and psoriasis. PAST SURGICAL HISTORY: D&C, , breast augmentation and transurethral resection of bladder tumor. ALLERGIES: NKDA. MEDICATIONS: Sotalol 80 mg p.o. b.i.d., Lasix 20 mg p.o. b.i.d., Protonix 40 mg p.o. b.i.d., Feosol 325 mg p.o. t.i.d., Synthroid 50 mcg p.o. daily, Xanax 0.5 mg p.o. b.i.d. and Tylenol 650 mg p.o. q. 6 hours p.r.n. pain. FAMILY HISTORY: Noncontributory. SOCIAL HISTORY: The patient reports former daily alcohol use who presently endorses occasional alcohol consumption. She denies smoking history or illicit drug abuse. REVIEW OF SYSTEMS: A 12-point review of systems is negative except as per HPI. PHYSICAL EXAMINATION: VITAL SIGNS: Temperature 97.9, pulse 104, blood pressure 130/90, respiratory rate 18, oxygen saturation 98% on room air. GENERAL: No apparent distress. HEENT: PERRL, EOMI. No scleral icterus. Conjunctival pallor is noted. NECK: No JVD. LUNGS: Clear to auscultation. CARDIOVASCULAR: Regular rate and rhythm. Normal S1, S2. Grade II/ murmur to LLSB. ABDOMEN: Normoactive bowel sounds, soft, nontender, nondistended. EXTREMITIES: Mild edema to left knee with tenderness to palpation. Full ROM with no joint deformity NEUROLOGIC: Awake and alert. No focal motor deficits. LABORATORY DATA: WBC 3.5, hemoglobin 9.7, hematocrit 30, platelets 134. Sodium 136, potassium 4.5, chloride 111, bicarb 11, BUN 93, creatinine 4.2, glucose 83. ASSESSMENT: The patient is a 63-year-old woman with a past medical history of alcoholic cirrhosis, portal hypertensive gastropathy, esophageal varices and gastric angiectasias who was admitted for evaluation and management of left knee pain and CHARLIE on CKD stage II. PLAN: 1. Left knee pain likely secondary to sprain. Imaging studies from prior admission reviewed and negative for acute pathology. Continue with Percocet 5/325 mg 1 tablet p.o. q. 4 hours p.r.n. pain. PT evaluation is pending. If no improvement in the next 36-48 hours we will consider Orthopedic consultation for possible joint injection/aspiration. 2. CHARLIE on CKD stage II, consider secondary to prerenal azotemia vs contrast- induced nephropathy. Input from Dr. England noted and workup is ongoing. Continue with gentle IV fluid hydration, monitoring strict I&O's, renally dosing medications and avoiding nephrotoxins. 3. Metabolic acidosis. As above, the patient has been started on bicarbonate supplementation. Continue with care as per Dr. England. 4. Iron-deficiency anemia. Labs demonstrate stable Hb. Continue Feosol 324 mg p.o. t.i.d.. 5 Portal hypertensive gastropathy. 6. Gastric ulcers. Continue Protonix 40 mg p.o. b.i.d. 7. Alcoholic cirrhosis. The patient has been counseled on adverse health effects of alcohol use and the need to abstain from alcohol. 8. Dilated cardiomyopathy. She remains clinically euvolemic. Lasix 20 mg p.o. b.i.d. remains on hold given CHARLIE on CKD. 9. Paroxysmal atrial fibrillation. The patient remains rate controlled. Continue sotalol 80 mg p.o. b.i.d. She is not on anticoagulation therapy due to history of GI bleed. 10. Hypertension. Continue Sotalol 80 mg p.o. b.i.d. 11. Hypothyroidism. Continue Synthroid 50 mcg p.o. daily. 12. Anxiety disorder. 13. Prophylaxis. GI prophylaxis not indicated as she remains on therapeutic dose of Protonix. Continue SCDs for DVT prophylaxis. CODE STATUS: Full code. Zelalem Brambila MD [facility]
[2018-12-08] MEDS: Oxycodone/Acetaminophen 5/325 mg Tab PO PRN ×3 (03:40→17:16)
[2018-12-08] MEDS: Pantoprazole 40 mg EC Tab PO SCH ×2 (06:22→16:00)
[2018-12-08] MEDS: Levothyroxine 50 MCG TAB PO SCH (06:22)
[2018-12-08] MEDS: Sodium Chloride 0.9% 1,000 ML IV SCH (06:23)
[2018-12-08 07:44] LABS: BASO # 0.09 K/mm3 (0.0-2.0); BASO % 2.1 % (0.0-3.0); EOS # 0.1 (0.0-0.7); EOS % 1.4 % (1.5-5.0); HEMOGLOBIN 9.4 g/dL (12.0-16.0); LYMPH # 1.1 (1.2-3.4); LYMPH % 26.2 % (22.0-35.0); MEAN CELL VOLUME 105.5 fl (80.0-105.0); MEAN CORPUSCULAR HEMOGLOBIN 34.2 pg (25.0-35.0); MEAN CORPUSCULAR HGB CONC 32.4 g/dl (31.0-37.0); MEAN PLATELET VOLUME 9.6 fl (7.0-11.0); MONO # 0.4 (0.1-0.6); MONO % 8.6 % (1.0-6.0); RBC 2.75 10^6/uL (3.5-6.1); RED CELL DISTRIBUTION WIDTH 23.4 % (11.5-14.5); WHITE BLOOD COUNT 4.2 10^3/uL (4.5-11.0)
[2018-12-08 08:09] LABS: ALB/GLOB RATIO 1.3 (1.1-1.8); ALBUMIN 4.1 g/dL (3.0-4.8); CALCIUM 9.1 mg/dL (8.4-10.5)
--- NOTE | 2018-12-08 12:31 | CP.PCM.PN ---
Subjective - Date & Time of Evaluation Date of Evaluation: 12/08/18 Time of Evaluation: 12:24 - Subjective Subjective: RENAL seen and examined feels very tired, + nausea O: vs as below gen: nad sclera: anicteric op: clear neck: supple cv: +S1+s2 no rub abd soft nt nd no organomegaly lungs: reduced bs at bases ext: no edema neuro: + asterixis otherwise a+ Ox3 psych: flat skin: some rashes b/l le imp: ARF /Cirrhosis/ Anemia/ acidosis/ leg pain/ hyperphosphatemia plan: CHARLIE - renal function still worse. Multiple risk factors for renal disease - r ecent CT w/ IV contrast (?LISA), based on echo in 2014 - has severely reduced EF - ? cardiorenal, has cirrhosis - ? hepatorenal - or multifactorial from above. Will check UPCR again - serologic studies sent off to r/o gn. Given progressive renal failure, and now w/ some signs of uremia - need to initiate HD - discussed w/ pt she agrees. Asked RN to consult Dr. Khoury for permacath tomorrow am and likely hd in early afternoon. renal us reviewed - will defer gallstone incidentally found to primary recc check abg , will start d5w w/ hco3 in interim will start renvela Objective - Vital Signs/Intake and Output Vital Signs (last 24 hours): Temp Pulse Resp BP Pulse Ox 98.1 F 90 20 123/67 96 12/08/18 06:00 12/08/18 09:47 12/08/18 06:00 12/08/18 09:47 12/08/18 06:00 Intake and Output: 12/08/18 12/08/18 06:59 18:59 Intake Total 360 Output Total 0 Balance 360 - Medications Medications: Current Medications Cyanocobalamin (Vitamin B12 1000 Mcg Tab) 1,000 mcg PO DAILY [facility] Diphenhydramine HCl (Benadryl) 50 mg PO Q6 PRN PRN Reason: prurits Last Admin: 12/07/18 14:03 Dose: 50 mg Ferrous Sulfate (Feosol) 324 mg PO TID [facility] Last Admin: 12/08/18 09:48 Dose: 324 mg Sodium Chloride (Sodium Chloride 0.9%) 1,000 mls @ 100 mls/hr IV .Q10H [facility] Last Admin: 12/08/18 06:23 Dose: 100 mls/hr Sodium Bicarbonate 150 meq/ (Dextrose) 1,150 mls @ 75 mls/hr IV .[id number] [facility] Levothyroxine Sodium (Synthroid) 50 mcg PO 0600 [facility] Last Admin: 12/08/18 06:22 Dose: 50 mcg Oxycodone/Acetaminophen (Percocet 5/325 Mg Tab) 1 tab PO Q4H PRN PRN Reason: Pain, moderate (4-7) Stop: 12/10/18 10:09 Last Admin: 12/08/18 09:47 Dose: 1 tab Pantoprazole Sodium (Protonix Ec Tab) 40 mg PO 0600,1600 [facility] Last Admin: 12/08/18 06:22 Dose: 40 mg Sodium Bicarbonate (Sodium Bicarbonate Tab) 1,300 mg PO Q8 [facility] Last Admin: 12/08/18 06:22 Dose: 1,300 mg Sotalol HCl (Betapace) 80 mg PO BID [facility] Last Admin: 12/08/18 09:47 Dose: 80 mg - Labs Labs: 12/08/18 07:00 12/08/18 07:00
[2018-12-08 13:36] LABS: INR 1.11; PARTIAL THROMBOPLASTIN TIME 31.3 Seconds (26.9-38.3); PROTHROMBIN TIME 12.3 SECONDS (9.4-12.5)
--- NOTE | 2018-12-08 14:28 | PN ---
SUBJECTIVE: The patient was seen and examined at bedside on the general medical ocampo. No acute events overnight. She remains afebrile, hemodynamically stable and continues to endorse right knee pain which does respond to Percocet. OBJECTIVE: VITAL SIGNS: Temperature 98.1, pulse 90, blood pressure 123/67, respiratory rate 20, oxygen saturation 96% on room air. GENERAL: No apparent distress. HEENT: PERRL, EOMI. No scleral icterus. Conjunctival pallor is noted. NECK: No JVD. LUNGS: Clear to auscultation. CARDIOVASCULAR: Regular rate and rhythm. Normal S1 and S2. Grade II/ murmur to LLSB. ABDOMEN: Normoactive bowel sounds, soft, nontender, nondistended. EXTREMITIES: Mild edema to left knee with tenderness to palpation. Full range of motion. NEUROLOGIC: Awake, alert and oriented x 3. No focal motor deficits. LABORATORY DATA: WBC 4.2, hemoglobin 9.4, hematocrit 29, platelets 145. Sodium 138, potassium 4.4, chloride 111, bicarb 9, BUN 91, creatinine 4.7, glucose 90. ASSESSMENT: The patient is a 63-year-old woman with a past medical history of alcoholic cirrhosis, portal hypertensive gastropathy, esophageal varices, gastric angioectasias and CKD stage II who was admitted for evaluation and management of left knee pain and CHARLIE on CKD stage II. PLAN: 1. Left knee pain, likely secondary to sprain, improved. Imaging studies from prior admission reviewed and demonstrate no acute pathology. Continue with Percocet 5/325 mg 1 tablet p.o. q. 4 hours p.r.n. pain. PT evaluation pending. If the patient does not have continued improvement over the next 24 hours we will consult Dr. Fountain of Orthopedic Surgery for possible joint injection. 2. CHARLIE on CKD stage II, consider secondary to prerenal azotemia vs contrast- induced nephropathy vs hepatorenal syndrome II. Input from Dr. England noted and workup is ongoing. Continue with gentle IV fluid hydration, monitoring strict I&O's, renally dosing medications and avoiding nephrotoxins. If renal parameters do not improve she may require renal replacement therapy. 3. Metabolic acidosis. As above, the patient has been started on bicarbonate supplementation. Continue with care as per Dr. England. 4. Iron-deficiency anemia. Labs demonstrate stable Hb. Continue Feosol 324 mg p.o. t.i.d. 5. Portal hypertensive gastropathy. 6. Gastric ulcers. Continue Protonix 40 mg p.o. b.i.d. 7. Alcoholic cirrhosis. The patient has been counseled on adverse health effects of alcohol use and the need to abstain from alcohol. 8. Dilated cardiomyopathy. She remains clinically euvolemic. Lasix remains on hold given CHARLIE on CKD. 9. Paroxysmal atrial fibrillation. Continue Sotalol 80 mg p.o. b.i.d. She is not on anticoagulation therapy due to history of GI bleed. 10. Hypertension. Continue Sotalol 80 mg p.o. b.i.d. 11. Hypothyroidism. Continue Synthroid 50 mcg p.o. daily. 12. Anxiety disorder. 13. Prophylaxis. GI prophylaxis not indicated as she remains on therapeutic dose of Protonix. Continue SCDs for DVT prophylaxis. CODE STATUS: Full code. Zelalem Brambila MD MTDD
[2018-12-08] MEDS: Sodium Bicarbonate 8.4% 150 MEQ in Dextrose 5% In Water 1,000 ML IV SCH (14:30)
[2018-12-08 15:40] LABS: COMPLEMENT C4 34.8 mg/dL (14.0-44.0)
[2018-12-09] MEDS: Oxycodone/Acetaminophen 5/325 mg Tab PO PRN ×3 (03:54→22:25)
[2018-12-09] MEDS: Levothyroxine 50 MCG TAB PO SCH (05:21)
[2018-12-09] MEDS: Pantoprazole 40 mg EC Tab PO SCH ×2 (05:21→17:24)
[2018-12-09] MEDS: Sodium Bicarbonate 8.4% 150 MEQ in Dextrose 5% In Water 1,000 ML IV SCH (05:22)
[2018-12-09 07:46] LABS: BASO # 0.03 K/mm3 (0.0-2.0); BASO % 0.9 % (0.0-3.0); EOS # 0.1 (0.0-0.7); EOS % 1.7 % (1.5-5.0); LYMPH # 0.6 (1.2-3.4); LYMPH % 16.6 % (22.0-35.0); MEAN CELL VOLUME 103.3 fl (80.0-105.0); MEAN CORPUSCULAR HEMOGLOBIN 33.2 pg (25.0-35.0); MEAN CORPUSCULAR HGB CONC 32.1 g/dl (31.0-37.0); MONO # 0.4 (0.1-0.6); MONO % 12.5 % (1.0-6.0); RBC 2.71 10^6/uL (3.5-6.1); RED CELL DISTRIBUTION WIDTH 23.4 % (11.5-14.5); WHITE BLOOD COUNT 3.4 10^3/uL (4.5-11.0)
[2018-12-09 08:12] LABS: ALB/GLOB RATIO 1.2 (1.1-1.8); ALBUMIN 3.7 g/dL (3.0-4.8); ALT/SGPT < 6 U/L (7-56); AST/SGOT 21 U/L (14-36); BLOOD UREA NITROGEN 95 mg/dL (7-21); CALCIUM 8.7 mg/dL (8.4-10.5); GFR NON-AFRICAN AMERICAN 10
[2018-12-09 08:45] LABS: HEPATITIS B SURFACE AG Negative (NEGATIVE)
[2018-12-09 08:50] LABS: HEPATITIS A IGM NEGATIVE (NEGATIVE)
[2018-12-09 09:03] LABS: HEPATITIS C ANTIBODY NEGATIVE (NEGATIVE)
[2018-12-09 09:29] LABS: HEPATITIS B CORE AB NEGATIVE (NEGATIVE)
--- NOTE | 2018-12-09 11:16 | PN ---
SUBJECTIVE: The patient was seen and examined at bedside on the general medical ocampo. No acute events overnight. She continues to endorse left knee pain which is slightly improved and otherwise offers no complaints. OBJECTIVE: VITAL SIGNS: Temperature 97.7, pulse 90, blood pressure 107/75, respiratory rate 20 and oxygen saturation 99% on room air. GENERAL: No apparent distress. HEENT: PERRL, EOMI. No scleral icterus. Conjunctival pallor is noted. NECK: No JVD. LUNGS: Clear to auscultation. CARDIOVASCULAR: Regular rate and rhythm. Normal S1 and S2. Grade II/ murmur to LLSB. ABDOMEN: Normoactive bowel sounds, soft, nontender and nondistended. EXTREMITIES: Mild edema to left knee with tenderness to palpation. Full range of motion with no joint deformities. NEUROLOGIC: Somnolent, but arousable. Oriented x 3. No motor deficits. LABORATORY DATA: WBC 3.4 with 68% neutrophils, hemoglobin 9, hematocrit 28 and platelets 137. Sodium 135, potassium 3.7, chloride 106, bicarb 17, BUN 95, creatinine 4.5 and glucose 122. ASSESSMENT: The patient is a 63-year-old woman with a past medical history of alcoholic cirrhosis, portal hypertensive gastropathy, esophageal varices, gastric angioectasias and CKD stage II who was admitted for evaluation and management of left knee pain and a CHARLIE on CKD stage II. PLAN: 1. Left knee pain. Imaging studies from prior admission reviewed and demonstrate no acute pathology. We will consult Dr. Fountain of Orthopedic Surgery for evaluation. Continue Percocet 5/325 mg 1 tablet p.o. q. 4 hours p.r.n. pain. PT input noted and recommendations made for subacute rehab. 2. CHARLIE on CKD stage II, consider secondary to prerenal azotemia vs contrast- induced nephropathy vs hepatorenal syndrome type II. Input from Dr. England noted. An extensive discussion was had with the patient regarding need for hemodialysis and she is amenable. She is scheduled for PermCath placement later today with Dr. Camilo Khoury. Continue with care as per Dr. England. 3. Iron-deficiency anemia. Labs demonstrate stable Hb. Continue Feosol 324 mg p.o. t.i.d. 4. Metabolic acidosis. Input from Dr. England noted and the patient remains on bicarbonate supplementation. 5. Portal hypertensive gastropathy. 6. Gastric ulcers. Continue Protonix 40 mg p.o. b.i.d. 7. Alcoholic cirrhosis. 8. Dilated cardiomyopathy. Lasix remains on hold given CHARLIE on CKD. We will repeat an echocardiogram to reassess LV function. 9. Paroxysmal atrial fibrillation. Continue Sotalol 80 mg p.o. b.i.d. She is not anticoagulation therapy due to history of GI bleed. 10. Hypertension. Continue Sotalol 80 mg p.o. b.i.d. 11. Hypothyroidism. Continue Synthroid 50 mcg p.o. daily. 12. Anxiety disorder. 13. Prophylaxis. GI prophylaxis not indicated as she remains on therapeutic Protonix. Continue SCDs for DVT prophylaxis. CODE STATUS: Full code. Zelalem Brambila MD MTDD
[2018-12-09] MEDS ORDERED: Lidocaine 2% Inj (20ml) ONE (11:41)
[2018-12-09] MEDS ORDERED: Iodixanol 320 MG/ML 100 ML BOTTLE IV ONE (11:41)
[2018-12-09] MEDS ORDERED: Midazolam 2 MG/2 ML VIAL ONE (11:58)
--- NOTE | 2018-12-09 12:13 | CON ---
DATE: 12/09/2018 ORTHOPEDIC CONSULTATION LOCATION: The patient is seen in room 577, bed 1. HISTORY OF PRESENT ILLNESS: The patient is a 63-year-old female with complaint of left-sided lower extremity pain from the hip to the thigh to the leg and ankle, and also to the lumbar spine. I am looking at her history, she was admitted to the hospital in end of October on 28 for a fall at home that is when her pain started. X-rays of the knee was within normal limits for fracture, but it is osteopenic bone with some mild effusion, same with the foot as well as spine. CAT scan was within normal limits. There is mild swelling of the leg on the left and the right side and she has pain in the lower back and the hip as well, so I am going to order x-ray of the pelvis, lumbar spine, and evaluate for any suspicious fractures, and if nothing shows, she may need MRI to look for a stress fracture. Hopefully,it is limited to the one area that is possible to then get a MRI for the whole leg, but will have to evaluate her for stress fracture with plain xrays first then get the lumbar spine, the hip, the femur and the knee and I will follow her and we will still get her up out of bed to avoid disuse atrophy, which would mahe her weaker. FINAL DIAGNOSES: Deep contusion of the lumbar spine, the hip, and the pelvis and femur in the left leg. Rocco Fountain DO MTDWes
--- NOTE | 2018-12-09 12:51 | RAD ---
Date of service: 12/09/2018 PROCEDURE: Left Knee Radiographs. HISTORY: Pain. COMPARISON: None. FINDINGS: BONES: Normal. No fracture. JOINTS: Normal. No osteoarthritis. JOINT EFFUSION: None. OTHER FINDINGS: None. IMPRESSION: Normal radiographs of the left knee.
--- NOTE | 2018-12-09 12:53 | RAD ---
Date of service: 12/09/2018 PROCEDURE: Pelvis three views HISTORY: pain COMPARISON: TECHNIQUE: Three views FINDINGS: There is no fracture or bony abnormality. IMPRESSION: Negative study
--- NOTE | 2018-12-09 12:53 | RAD ---
Date of service: 12/09/2018 PROCEDURE: Left Femur Radiographs. HISTORY: pain COMPARISON: None. TECHNIQUE: AP and Lateral Radiographs of the left femur. FINDINGS: FEMUR: Normal. No fracture. SOFT TISSUES: Normal. OTHER FINDINGS: None. IMPRESSION: Unremarkable radiographs of the left femur.
--- NOTE | 2018-12-09 14:03 | CP.PCM.PN ---
Subjective - Date & Time of Evaluation Date of Evaluation: 12/09/18 Time of Evaluation: 13:58 - Subjective Subjective: RENAL seen and examined on HD O: vs as below gen: nad sclera: anicteric op: clear neck: supple cv: +S1+s2 no rub abd soft nt nd no organomegaly lungs: reduced bs at bases ext: no edema neuro: + asterixis otherwise a+ Ox3 psych: flat skin: some rashes b/l le imp: ARF /Cirrhosis/ Anemia/ acidosis/ leg pain/ hyperphosphatemia plan: CHARLIE - seen on HD. AoCKD due to multiple reasons - cardiorenal/hepatorenal/contrast. Given uremia initiation of HD now. 2 hours and 3 hours tomorrow. serologic studies pending. renal us reviewed - will defer gallstone incidentally found to primary continue renvela will d/c iv hco3 and po hco3 as should improve w/ hd check iron profile/ferritin Objective - Vital Signs/Intake and Output Vital Signs (last 24 hours): Temp Pulse Resp BP Pulse Ox 97 F L 70 14 102/66 98 12/09/18 12:57 12/09/18 12:57 12/09/18 12:57 12/09/18 12:57 12/09/18 12:57 - Medications Medications: Current Medications Cyanocobalamin (Vitamin B12 1000 Mcg Tab) 1,000 mcg PO DAILY [facility] Diphenhydramine HCl (Benadryl) 50 mg PO Q6 PRN PRN Reason: prurits Last Admin: 12/07/18 14:03 Dose: 50 mg Ferrous Sulfate (Feosol) 324 mg PO TID [facility] Last Admin: 12/09/18 10:52 Dose: Not Given Sodium Bicarbonate 150 meq/ (Dextrose) 1,150 mls @ 75 mls/hr IV .[id number] [facility] Last Admin: 12/09/18 05:22 Dose: 75 mls/hr Levothyroxine Sodium (Synthroid) 50 mcg PO 0600 [facility] Last Admin: 12/09/18 05:21 Dose: 50 mcg Oxycodone/Acetaminophen (Percocet 5/325 Mg Tab) 1 tab PO Q4H PRN PRN Reason: Pain, moderate (4-7) Stop: 12/10/18 10:09 Last Admin: 12/09/18 03:54 Dose: 1 tab Pantoprazole Sodium (Protonix Ec Tab) 40 mg PO 0600,1600 [facility] Last Admin: 12/09/18 05:21 Dose: 40 mg Sevelamer HCl (Renagel) 1,600 mg PO TID [facility] Last Admin: 12/09/18 10:52 Dose: Not Given Sodium Bicarbonate (Sodium Bicarbonate Tab) 1,300 mg PO Q8 [facility] Last Admin: 12/09/18 05:21 Dose: 1,300 mg Sotalol HCl (Betapace) 80 mg PO BID [facility] Last Admin: 12/09/18 10:52 Dose: Not Given Vitamin B Complex/Vit C/Folic Acid (Nephro-Charlotte) 1 tab PO 0800 [facility] - Labs Labs: 12/09/18 07:00 12/09/18 07:00 PT 12.3 SECONDS (9.4-12.5) 12/08/18 13:00 INR 1.11 12/08/18 13:00 APTT 31.3 Seconds (26.9-38.3) 12/08/18 13:00
[2018-12-09] MEDS: Multivitamin Vitamin B Complex (Nephro-Vite) Tab PO SCH (17:24)
--- NOTE | 2018-12-09 18:00 | CARD ---
APPROVED REPORT Date of service: 12/09/2018 EXAM: Two-dimensional and M-mode echocardiogram with Doppler and color Doppler. INDICATION LV Function:SystolicDiastolic R/O DILATED CARDIOMYOPATHY 2D DIMENSIONS Left Atrium (2D)5.2 (1.6-4.0cm)IVSd1.3 (0.7-1.1cm) LVDd4.5 (3.9-5.9cm)PWd1.5 (0.7-1.1cm) LVDs3.6 (2.5-4.0cm)FS (%) 19.6 % LVEF (%)40.4 (>50%) M-Mode DIMENSIONS Aortic Root2.50 (2.2-3.7cm)Aortic Cusp Exc.1.30 (1.5-2.0cm) Aortic Valve AoV Peak Qnvrwybh546.0cm/Karen Peak GR.6mmHg Mitral Valve E/A ratio0.0 TDI E/Lateral E'0.0E/Medial E'0.0 Tricuspid Valve TR Peak [id number] [id number] Peak Gr.74mmHg [id number] LEFT VENTRICLE The left ventricle is normal size. There is moderate concentric left ventricular hypertrophy. The left ventricular function is normal. The left ventricular ejection fraction is within the normal range. There is a flattened septum consistent with right ventricle pressure overload. RIGHT VENTRICLE The right ventricle is mildly dilated. ATRIA The left atrium is severely dilated. The right atrium is severely dilated. The interatrial septum is intact with no evidence for an atrial septal defect. AORTIC VALVE The aortic valve is mildly sclerotic. There is trace aortic regurgitation. MITRAL VALVE The mitral valve is mildly thickened. Mitral regurgitation is moderate to severe. The mitral regurgitant jet is posteriorly directed, which is consistent with anterior leaflet pathology. TRICUSPID VALVE The tricuspid valve is normal in structure. There is severe tricuspid regurgitation. There is severe pulmonary hypertension. PULMONIC VALVE The pulmonary valve is normal in structure. GREAT VESSELS The aortic root is normal in size. Dilated IVC with poor inspiration collapse is consistent with elevated right atrial pressure. PERICARDIAL EFFUSION There is no pleural effusion. There is a small posterior pericardial effusion. <Conclusion> Biatrial enlargement. Normal LV size. Moderate concentric LVH. Overall LV systolic function is normal with septal flattening consistent with RV pressure overload. Moderate to severe MR. Severe TR. Severe pulmonary HTN.
--- NOTE | 2018-12-09 18:48 | US ---
HISTORY: Leg pain and swelling. Evaluate for DVT PHYSICIAN(S): Camilo Khoury MD. TECHNIQUE: Duplex sonography and color-flow Doppler with graded compression were used to evaluate the deep venous systems of both lower extremities. The exam is somewhat limited by edema FINDINGS: The visualized deep venous systems of both lower extremities are sonographically normal and compressible. Normal wave forms and augmentation are seen. There is no sonographic evidence for deep venous thrombosis in the visualized segments of both lower extremities. IMPRESSION: No sonographic evidence for deep venous thrombosis in the visualized segments of both lower extremities.
--- NOTE | 2018-12-09 19:15 | VASCULAR ---
PROCEDURE: Ultrasound and fluoroscopic tunneled right IJ dialysis catheter. CLINICAL HISTORY: ESRD PHYSICIAN(S): Camilo Khoury M.D. TECHNIQUE: The relative risks and indications for the procedure were explained to the patient and informed written consent obtained. The patient was placed supine on the arteriography table and the right neck/chest was prepped and draped in the usual sterile fashion. 1% Xylocaine was used to anesthetize the skin and soft tissues at the puncture site. Conscious sedation and monitoring were provided throughout the procedure by a nurse. Under direct ultrasound guidance, the rightinternal jugular vein was punctured with a micropuncture set. A 0.035 Glidewire was advanced into the IVC. Sequential dilatation was performed with subsequent placement of a 28cm Nextgen catheter with its tip in the right atrium. A retrograde tunnel below the right clavicle was performed. The catheter was trimmed and the hub attached. Both ports aspirate and inject easily. The catheter was secured and a dressing applied. The patient tolerated the procedure well. IMPRESSION: 1. Ultrasound and fluoroscopically placed right IJ tunneled dialysis catheter.
[2018-12-10] MEDS: Oxycodone/Acetaminophen 5/325 mg Tab PO PRN ×3 (03:03→21:26)
[2018-12-10 05:06] LABS: FREE KAPPA SERUM 152.1 mg/L (3.3-19.4)
[2018-12-10] MEDS: Levothyroxine 50 MCG TAB PO SCH (06:14)
[2018-12-10] MEDS: Pantoprazole 40 mg EC Tab PO SCH ×2 (06:14→18:17)
[2018-12-10 07:17] LABS: BASO # 0.02 K/mm3 (0.0-2.0); BASO % 0.6 % (0.0-3.0); EOS # 0.1 (0.0-0.7); HEMOGLOBIN 8.8 g/dL (12.0-16.0); LYMPH # 0.7 (1.2-3.4); LYMPH % 19.7 % (22.0-35.0); MEAN CELL VOLUME 101.9 fl (80.0-105.0); MEAN CORPUSCULAR HEMOGLOBIN 33.8 pg (25.0-35.0); MEAN CORPUSCULAR HGB CONC 33.2 g/dl (31.0-37.0); MEAN PLATELET VOLUME 9.1 fl (7.0-11.0); MONO # 0.6 (0.1-0.6); MONO % 16.3 % (1.0-6.0); RBC 2.6 10^6/uL (3.5-6.1); WHITE BLOOD COUNT 3.5 10^3/uL (4.5-11.0)
[2018-12-10 07:32] LABS: ALB/GLOB RATIO 1.2 (1.1-1.8); ALBUMIN 3.5 g/dL (3.0-4.8); CALCIUM 8.5 mg/dL (8.4-10.5)
[2018-12-10] MEDS: Multivitamin Vitamin B Complex (Nephro-Vite) Tab PO SCH ×2 (08:50→09:01)
--- NOTE | 2018-12-10 09:04 | CP.PCM.PN ---
Subjective - Date & Time of Evaluation Date of Evaluation: 12/10/18 Time of Evaluation: 09:01 - Subjective Subjective: RENAL seen and examined fatigued and milldy lightheaded at times O: vs as below gen: nad sclera: anicteric op: clear neck: supple cv: +S1+s2 no rub abd soft nt nd no organomegaly lungs: reduced bs at bases ext: no edema neuro: no asterixis a+ Ox3 psych: flat skin: some rashes b/l le imp: ARF /Cirrhosis/ Anemia/ acidosis/ leg pain/ hyperphosphatemia/pulm htn plan: CHARLIE - 2nd HD today - 3 hours next on . sever pHTN on echo - f/u w/ cardiology for eval as to etiology started on aranesp serologic studies pending. renal us reviewed - will defer gallstone incidentally found to primary continue renvela check iron profile/ferritin pending discussed w/ sw to begin hd chair placement Objective - Vital Signs/Intake and Output Vital Signs (last 24 hours): Temp Pulse Resp BP Pulse Ox 98.6 F 73 16 95/65 L 98 12/10/18 06:00 12/10/18 06:00 12/10/18 06:00 12/10/18 06:00 12/10/18 06:00 Intake and Output: 12/10/18 12/10/18 06:59 18:59 Intake Total 360 Balance 360 - Medications Medications: Current Medications Cyanocobalamin (Vitamin B12 1000 Mcg Tab) 1,000 mcg PO DAILY [facility] Last Admin: 12/10/18 09:00 Dose: Not Given Darbepoetin Amrit (Aranesp) 40 mcg IVP QWK [facility] Diphenhydramine HCl (Benadryl) 50 mg PO Q6 PRN PRN Reason: prurits Last Admin: 12/07/18 14:03 Dose: 50 mg Ferrous Sulfate (Feosol) 324 mg PO TID [facility] Last Admin: 12/10/18 09:01 Dose: Not Given Levothyroxine Sodium (Synthroid) 50 mcg PO 0600 [facility] Last Admin: 12/10/18 06:14 Dose: 50 mcg Oxycodone/Acetaminophen (Percocet 5/325 Mg Tab) 1 tab PO Q4H PRN PRN Reason: Pain, moderate (4-7) Stop: 12/10/18 10:09 Last Admin: 12/10/18 03:03 Dose: 1 tab Pantoprazole Sodium (Protonix Ec Tab) 40 mg PO 0600,1600 [facility] Last Admin: 12/10/18 06:14 Dose: 40 mg Sevelamer HCl (Renagel) 1,600 mg PO TID [facility] Last Admin: 12/10/18 08:50 Dose: 1,600 mg Sotalol HCl (Betapace) 80 mg PO BID [facility] Last Admin: 12/09/18 17:26 Dose: 80 mg Tamsulosin HCl (Flomax) 0.4 mg PO DAILY [facility] Last Admin: 12/10/18 08:50 Dose: 0.4 mg Vitamin B Complex/Vit C/Folic Acid (Nephro-Charlotte) 1 tab PO 0800 [facility] Last Admin: 12/10/18 09:01 Dose: Not Given - Labs Labs: 12/10/18 07:00 12/10/18 07:00 PT 12.3 SECONDS (9.4-12.5) 12/08/18 13:00 INR 1.11 12/08/18 13:00 APTT 31.3 Seconds (26.9-38.3) 12/08/18 13:00
--- NOTE | 2018-12-10 11:42 | PN ---
DATE: 12/10/2018 LOCATION: Room 577, bed 1. The patient had x-rays of her left knee, which shows mild osteoarthritis with decreased medial joint space. She had no pain in the right knee and she has x-ray of her femur done, because of pain. I just want to make sure she does not have any stress fracture or suggestion of a lytic lesion, but there is no lesions of the left femur and the hip is also well. There is no signs of fracture or lesions and the pelvis is the same. She does have pain in her back., to get xrals to make sure there is no pathologic lesions on the x-rays are hopfully they will be negative, she will just continue therapy. Rocco Fountain DO MTDWes
--- NOTE | 2018-12-10 11:45 | PN ---
SUBJECTIVE: The patient was seen and examined at bedside on the general medical ocampo. No acute events overnight. She remains afebrile and hemodynamically stable. The patient was starting hemodialysis yesterday which she tolerated without difficulty. This morning she continues to endorse right knee pain but states it responds to Percocet and otherwise she offers no complaints. OBJECTIVE: VITAL SIGNS: Temperature 98.6, pulse 73, blood pressure 95/65, respiratory rate 18, and oxygen saturation 98% on room air. GENERAL: No apparent distress. HEENT: PERRL, EOMI. No scleral icterus. Conjunctival pallor is noted. NECK: No JVD. LUNGS: Clear to auscultation. CARDIOVASCULAR: Regular rate and rhythm. Normal S1, S2. Grade II/ murmur to LLSB. ABDOMEN: Normoactive bowel sounds, soft, nontender, nondistended, nondistended. EXTREMITIES: Mild edema to left knee with tenderness to palpation. Full range of motion with no joint deformities. NEUROLOGIC: Awake, alert and oriented x 3. No focal motor deficits. LABORATORY DATA: WBC 3.5 with 61% neutrophils, hemoglobin 8.8, hematocrit 27, platelets 127. Sodium 136, potassium 3.8, chloride 106, bicarb 19, BUN 69, creatinine 3.9, glucose 100. DIAGNOSTIC STUDIES: TTE demonstrated biatrial enlargement with normal LV systolic function with septal flattening consistent with RV pressure overload with moderate to severe MR and severe TR and severe pulmonary hypertension. ASSESSMENT: The patient is a 63-year-old woman with a past medical history of alcoholic cirrhosis, portal hypertensive gastropathy, esophageal varices, gastric angioectasias and CKD stage II who was admitted for evaluation and management of left knee pain and CHARLIE on CKD stage II. PLAN: 1: CHARLIE and CKD stage II, consider secondary to contrast-induced nephropathy vs hepatorenal syndrome type II. Input from Dr. England noted and the patient has been started on renal replacement therapy. Continue with care as per Dr. England. 2. Dilated cardiomyopathy. Lasix remains on hold given CHARLIE and CKD. She remains clinically euvolemic. 3. Pulmonary hypertension. We will consult Dr. Long for possible right heart cath and Dr. Champagne for evaluation and possible initiation of therapeutic agents. 4. Left knee pain. Input from Dr. Fountain noted. Continue with care as per Dr. Mastromonaco. Continue Percocet 5/325 mg 1 tablet p.o. q. 4 hours p.r.n. pain. PT input noted and recommendations have been made for subacute rehab. 5. Iron-deficiency anemia. Labs demonstrate stable Hb. Continue Feosol 324 mg p.o. t.i.d 6. Paroxysmal atrial fibrillation. Continue Sotalol 80 mg p.o. b.i.d. She is not on anticoagulation therapy due to history of GI bleed. 7. Metabolic acidosis, resolved. 8. Portal hypertensive gastropathy. 9. Alcoholic cirrhosis. 10. Gastric ulcers. Continue Protonix 40 mg p.o. b.i.d. 11. Hypertension. Continue Sotalol 80 mg p.o. b.i.d. 12. Hypothyroidism. Continue Synthroid 50 mcg p.o. daily. 13. Anxiety disorder. 14. Prophylaxis. GI prophylaxis not indicated as she remains on therapeutic Protonix. Continue SCDs for DVT prophylaxis. CODE STATUS: Full code. Zelalem Brambila MD MTDWes
--- NOTE | 2018-12-10 14:30 | RAD ---
Date of service: 12/10/2018 PROCEDURE: Radiographs of the Lumbar Spine. HISTORY: PAIN COMPARISON: No prior. FINDINGS: BONES: Normal alignment. No listhesis. No fracture. Minimal levoscoliosis. DISC SPACES: Unremarkable. OTHER FINDINGS: None. IMPRESSION: Minimal levoscoliosis. Otherwise unremarkable
--- NOTE | 2018-12-10 14:37 | RAD ---
Date of service: 12/10/2018 PROCEDURE: Cervical Spine Radiographs. HISTORY: Pain. COMPARISON: None available. FINDINGS: BONES: Alignment maintained. No fracture. Evaluation of the odontoid process is limited radiographically. The atlantoaxial articulation is intact.. DISC SPACES: Normal. SOFT TISSUES: Normal. No prevertebral soft tissue swelling. OTHER FINDINGS: None. IMPRESSION: No evidence of fracture or dislocation
--- NOTE | 2018-12-10 15:17 | RAD ---
Date of service: 12/10/2018 HISTORY: PAIN COMPARISON: No prior. FINDINGS: BONES: Alignment maintained. No fracture. DISC SPACES: Normal. SOFT TISSUES: Significant only for the presence of a right paraspinous tunneled central venous dialysis catheter OTHER FINDINGS: None. IMPRESSION: No evidence of fracture or degenerative disc disease..
--- NOTE | 2018-12-10 15:36 | CON ---
DATE: 12/10/2018 CARDIOLOGY CONSULTATION HISTORY: The patient is a 63-year-old woman, who presents with dyspnea. PAST MEDICAL HISTORY: Presents with dyspnea as well as pain in her left leg. Her past medical history is included chronic atrial fibrillation, dilated cardiomyopathy with an EF of 40% with moderate mitral regurgitation, severe pulmonary hypertension, end-stage renal disease, alcoholism, and nicotine addiction. I was asked to see her for possible catheterization for evaluation of her pulmonary hypertension. Currently, the patient is in dialysis with mild resting shortness of breath. She admits to occasionally smoking and does drink alcohol and continues to drink alcohol. She denies chest pain, does admit to edema in the lower extremities. PHYSICAL EXAMINATION: VITAL SIGNS: Blood pressure is 95 systolic, heart rates in the 70s. NECK: Negative JVD. LUNGS: Decreased breath sounds bilaterally. HEART: Reveal S1, S2 with 2/6 systolic ejection murmur. EXTREMITIES: Trace edema. LABORATORY DATA: EKG is atrial fibrillation with nonspecific ST-T changes. Hemoglobin is 8.8. Chemistries: BUN and creatinine is 69 and 3.9. IMPRESSION: 1. Chronic dyspnea. 2. Severe pulmonary hypertension. 3. Dilated cardiomyopathy with an ejection fraction of 40% and 2+ mitral regurgitation, likely secondary to . 4. Alcoholism. 5. End-stage renal disease. 6. Pulmonary retention. 7. Chronic dyspnea. Given these findings, I have discussed with the patient about the potential for cardiac catheterization and potential treatment for pulmonary retention, which would require that she stop smoking and stop drinking alcohol. The patient is not quite sure whether she would be willing to change her behavior. Given these findings, we will hold off on any invasive evaluation of her pulmonary hypertension at this time. If she remains dyspneic, we would consider IV inotropic therapy. Camilo Long MD
[2018-12-11] MEDS: Pantoprazole 40 mg EC Tab PO SCH ×2 (06:30→17:49)
[2018-12-11] MEDS: Levothyroxine 50 MCG TAB PO SCH (06:31)
[2018-12-11 07:07] LABS: BASO # 0.03 K/mm3 (0.0-2.0); EOS # 0.1 (0.0-0.7); EOS % 2.3 % (1.5-5.0); HEMOGLOBIN 8.7 g/dL (12.0-16.0); LYMPH # 0.7 (1.2-3.4); LYMPH % 21.6 % (22.0-35.0); MEAN CELL VOLUME 102.3 fl (80.0-105.0); MEAN CORPUSCULAR HEMOGLOBIN 33.5 pg (25.0-35.0); MEAN CORPUSCULAR HGB CONC 32.7 g/dl (31.0-37.0); MEAN PLATELET VOLUME 9.2 fl (7.0-11.0); MONO # 0.6 (0.1-0.6); RBC 2.6 10^6/uL (3.5-6.1); WHITE BLOOD COUNT 3.1 10^3/uL (4.5-11.0)
[2018-12-11 08:13] LABS: ALB/GLOB RATIO 1.2 (1.1-1.8); ALBUMIN 3.3 g/dL (3.0-4.8); CALCIUM 8.8 mg/dL (8.4-10.5)
[2018-12-11] MEDS: Oxycodone/Acetaminophen 5/325 mg Tab PO PRN ×4 (08:27→22:06)
[2018-12-11] MEDS: Multivitamin Vitamin B Complex (Nephro-Vite) Tab PO SCH (08:28)
[2018-12-11] MEDS ORDERED: Darbepoetin Alfa 40 mcg/ml Inj IVP SCH (10:00)
--- NOTE | 2018-12-11 10:13 | PN ---
SUBJECTIVE: The patient was seen and examined at bedside on the general medical ocampo. No acute events overnight. She remains afebrile, hemodynamically stable and is doing well s/p PermCath placement. This morning she offers no complaints. OBJECTIVE: VITAL SIGNS: Temperature 97.7, pulse 82, blood pressure 114/78, respiratory rate 18 and oxygen saturation 92% on room air. GENERAL: No apparent distress. HEENT: PERRL, EOMI. No scleral icterus. Conjunctival pallor is noted. NECK: No JVD. LUNGS: Clear to auscultation. CARDIOVASCULAR: Regular rate and rhythm. Normal S1, and S2. Grade II/ murmur to LLSB. ABDOMEN: Normoactive bowel sounds, soft, nontender, and nondistended. EXTREMITIES: Mild edema to left knee with tenderness to palpation. NEUROLOGIC: Awake, alert and oriented x 3. No focal motor deficits. LABORATORY DATA: WBC 3.1, hemoglobin 8.7, hematocrit 27 and platelets 126. Sodium 136, potassium 3.7, chloride 103, bicarb 25, BUN 39, creatinine 2.7 and glucose 111. ASSESSMENT: The patient is a 63-year-old woman with a past medical history of alcoholic cirrhosis, portal hypertensive gastropathy, esophageal varices, gastric angioectasias and CKD stage II who was admitted for evaluation and management of left knee pain and CHARLIE on CKD stage II. PLAN: 1. CHARLIE on CKD stage II, consider secondary to contrast-induced nephropathy vs hepatorenal syndrome type 2. Input from Dr. England noted. The patient is s/p PermCath placement facilitate hemodialysis. Renal parameters trending favorably. 2. Dilated cardiomyopathy. Input from Dr. Long noted. The patient presently declines cardiac catheterization. Continue current care. 3. Pulmonary hypertension. As above input from Dr. Long noted and she presently declines cardiac catheterization to further evaluate her severe pulmonary hypertension. Furthermore, the case has been discussed with Dr. Champagne of Pulmonary & Critical Care Medicine who advised that as long as the patient continues to drink she is not a candidate for therapeutic agents as they are metabolized through the liver. She has again been extensively counseled on the need for alcohol cessation and advised to followup with Dr. Champagne on an outpatient basis. 4. Left knee pain. Input from Dr. Fountain noted. Imaging studies reviewed and negative for acute pathology. Continue with PT. Continue Percocet 5/325 mg 1 tablet p.o. q. 4 hours p.r.n. pain. 5. Iron-deficiency anemia. Labs demonstrate stable Hb. Continue Feosol 324 mg p.o. t.i.d. 6. Paroxysmal atrial fibrillation. Continue Sotalol 80 mg p.o. b.i.d. She is not anticoagulation therapy due to history of GI bleed. 7. Metabolic acidosis, resolved. 8. Portal hypertensive gastropathy. 9. Alcoholic cirrhosis. 10. Gastric ulcers. Continue Protonix 40 mg p.o. b.i.d. 11. Hypertension. Continue Sotalol 80 mg p.o. b.i.d. 12. Hypothyroidism. Continue Synthroid 50 mcg p.o. daily. 13. Anxiety disorder. 14. Prophylaxis. GI prophylaxis not indicated as she remains on therapeutic Protonix. Continue SCDs for DVT prophylaxis. CODE STATUS: Full code. Zelalem Brambila MD MTDWes
--- NOTE | 2018-12-11 18:45 | PN ---
DATE: 12/11/2018 CARDIOLOGY FOLLOWUP SUBJECTIVE: The patient is without shortness of breath. She tolerated dialysis yesterday. OBJECTIVE: VITAL SIGNS: Blood pressure 130/64 and heart rate in the 70s. NECK: Negative JVD. LUNGS: Without rales. HEART: S1 and S2. EXTREMITIES: Without edema. LABORATORY DATA: Hemoglobin is 8.7. Chemistries; BUN and creatinine is 37 and 2.7. IMPRESSION: 1. Severe pulmonary hypertension. 2. End-stage renal disease. 3. Dilated cardiomyopathy with an ejection fraction of 40%. 4. Alcoholism. 5. Dyspnea, which is now stable. PLAN: Given these findings, there are no plans for invasive cardiac strategy at this time. The patient needs to her alcohol intake first. Camilo Long MD
--- NOTE | 2018-12-11 20:53 | CP.PCM.PN ---
Subjective - Date & Time of Evaluation Date of Evaluation: 12/11/18 Time of Evaluation: 11:00 - Subjective Subjective: RENAL seen and examined complains of pain in leg O: vs reviewed gen: nad sclera: anicteric op: clear neck: supple cv: +S1+s2 no rub abd soft nt nd no organomegaly lungs: reduced bs at bases ext: no edema neuro: no asterixis a+ Ox3 psych: flat imp: ARF /Cirrhosis/ Anemia/ acidosis/ leg pain/ hyperphosphatemia/pulm htn plan: CHARLIE on TTS schedule sever pHTN on echo - f/u w/ cardiology for eval as to etiology started on aranesp for anemia serologic studies pending. renal us reviewed continue renvela check iron profile/ferritin pending, ferritin low iron sats ordered as somehow not sent Objective - Vital Signs/Intake and Output Vital Signs (last 24 hours): Temp Pulse Resp BP Pulse Ox 99.4 F 82 20 120/84 96 12/11/18 14:07 12/11/18 17:51 12/11/18 14:07 12/11/18 17:51 12/11/18 14:07 Intake and Output: 12/11/18 12/12/18 18:59 06:59 Intake Total 480 Balance 480 - Medications Medications: Current Medications Cyanocobalamin (Vitamin B12 1000 Mcg Tab) 1,000 mcg PO DAILY ON LICENSE OF [facility] Last Admin: 12/11/18 10:37 Dose: 1,000 mcg Darbepoetin Amrit (Aranesp) 40 mcg IVP QWK ON LICENSE OF [facility] Diphenhydramine HCl (Benadryl) 50 mg PO Q6 PRN PRN Reason: prurits Last Admin: 12/07/18 14:03 Dose: 50 mg Ferrous Sulfate (Feosol) 324 mg PO TID ON LICENSE OF [facility] Last Admin: 12/11/18 17:49 Dose: 324 mg Levothyroxine Sodium (Synthroid) 50 mcg PO 0600 ON LICENSE OF [facility] Last Admin: 12/11/18 06:31 Dose: 50 mcg Ondansetron HCl (Zofran Inj) 4 mg IVP Q6H PRN PRN Reason: Nausea/Vomiting Last Admin: 12/11/18 13:40 Dose: 4 mg Oxycodone/Acetaminophen (Percocet 5/325 Mg Tab) 1 tab PO Q4H PRN PRN Reason: Pain, severe (8-10) Stop: 12/13/18 15:20 Last Admin: 12/11/18 18:09 Dose: 1 tab Pantoprazole Sodium (Protonix Ec Tab) 40 mg PO 0600,1600 ON LICENSE OF [facility] Last Admin: 12/11/18 17:49 Dose: 40 mg Sevelamer HCl (Renagel) 1,600 mg PO TID ON LICENSE OF [facility] Last Admin: 12/11/18 17:49 Dose: 1,600 mg Sotalol HCl (Betapace) 80 mg PO BID ON LICENSE OF [facility] Last Admin: 12/11/18 17:51 Dose: 80 mg Tamsulosin HCl (Flomax) 0.4 mg PO DAILY ON LICENSE OF [facility] Last Admin: 12/11/18 10:37 Dose: 0.4 mg Vitamin B Complex/Vit C/Folic Acid (Nephro-[place]) 1 tab PO 0800 ON LICENSE OF [facility] Last Admin: 12/11/18 08:28 Dose: 1 tab - Labs Labs: 12/11/18 06:55 12/11/18 06:55 PT 12.3 SECONDS (9.4-12.5) 12/08/18 13:00 INR 1.11 12/08/18 13:00 APTT 31.3 Seconds (26.9-38.3) 12/08/18 13:00
[2018-12-12] MEDS: Pantoprazole 40 mg EC Tab PO SCH ×2 (06:00→16:36)
[2018-12-12] MEDS: Oxycodone/Acetaminophen 5/325 mg Tab PO PRN ×3 (06:00→16:36)
[2018-12-12] MEDS: Levothyroxine 50 MCG TAB PO SCH (06:00)
[2018-12-12 07:24] LABS: BASO # 0.06 K/mm3 (0.0-2.0); BASO % 1.8 % (0.0-3.0); EOS # 0.1 (0.0-0.7); EOS % 2.8 % (1.5-5.0); HEMOGLOBIN 8.7 g/dL (12.0-16.0); MEAN CELL VOLUME 103.1 fl (80.0-105.0); MEAN CORPUSCULAR HEMOGLOBIN 33.3 pg (25.0-35.0); MEAN CORPUSCULAR HGB CONC 32.3 g/dl (31.0-37.0); MEAN PLATELET VOLUME 9.1 fl (7.0-11.0); MONO # 0.5 (0.1-0.6); MONO % 14.4 % (1.0-6.0); RBC 2.61 10^6/uL (3.5-6.1); RED CELL DISTRIBUTION WIDTH 22.8 % (11.5-14.5); WHITE BLOOD COUNT 3.3 10^3/uL (4.5-11.0)
[2018-12-12 07:36] LABS: ALB/GLOB RATIO 1.2 (1.1-1.8); ALBUMIN 3.4 g/dL (3.0-4.8); CALCIUM 8.9 mg/dL (8.4-10.5)
--- NOTE | 2018-12-12 08:48 | PN ---
SUBJECTIVE: The patient was seen and examined at bedside on the general medical ocampo. No acute events overnight. She remains afebrile, hemodynamically stable and is pending placement to subacute rehab. OBJECTIVE: VITAL SIGNS: Temperature 98.2, pulse 76, blood pressure 130/76, respiratory rate 20, oxygen saturation 94% on room air. GENERAL: No apparent distress. HEENT: PERRL, EOMI. No scleral icterus. Conjunctival pallor is noted. NECK: No JVD. LUNGS: Clear to auscultation. CARDIOVASCULAR: Regular rate and rhythm. Normal S1, S2. Grade II/ murmur to LLSB. ABDOMEN: Normoactive bowel sounds, nontender, nondistended. EXTREMITIES: No edema. NEUROLOGIC: Awake, alert and oriented x 3. No focal motor deficits. LABORATORY DATA: WBC 3.3, hemoglobin 8.7, hematocrit 27, platelets to platelets 132. Sodium 135, potassium 3.8, chloride 100, bicarb 25, BUN 43, creatinine 3.2, glucose 93. ASSESSMENT: The patient is a 63-year-old woman with a past medical history of alcoholic cirrhosis, portal hypertensive gastropathy, esophageal varices, gastric angioectasias and CKD stage II who was admitted for evaluation and management of left knee pain and CHARLIE on CKD stage II. PLAN: 1. CHARLIE on CKD stage II, consider secondary to contrast-induced nephropathy vs hepatorenal syndrome type 2. Input from Dr. Ryan noted. The patient remains on renal replacement therapy (//Sun). Continue with care as per nephrology. 2. Dilated cardiomyopathy. Input from Dr. Long noted. Continue with current care. 3. Pulmonary hypertension. Input from Dr. Champagne and Dr. Long noted and the patient is presently not a candidate for therapy given her continued alcohol use. She has been extensively counseled on the need to abstain from alcohol before initiating therapeutic agents for her underlying pulmonary hypertension. Arrangements will be made for outpatient follow up with Dr. Champagne. 4. Left knee pain. Input from Dr. Fountain noted. Imaging studies negative for acute pathology. Continue Percocet 5/325 mg 1 tablet p.o. q. 4 hours p.r.n. pain. Continue PT. 5. Iron-deficiency anemia. Labs demonstrate stable Hb. Continue Feosol 324 mg p.o. t.i.d. 6. Paroxysmal atrial fibrillation. Continue Sotalol 80 mg p.o. b.i.d. She is not on anticoagulation therapy due to history of GI bleed. 7. Hypertension. Continue Sotalol 80 mg p.o. b.i.d. 8. Hypothyroidism. Continue Synthroid 50 mcg p.o. daily. 9. Gastric ulcers. Continue Protonix 40 mg p.o. b.i.d. 10. Portal hypertensive gastropathy. 11. Alcoholic cirrhosis. 12. Metabolic acidosis, resolved. 13. Anxiety disorder. 14. Prophylaxis. GI prophylaxis not indicated as she remains on therapeutic Protonix. Continue SCDs for DVT prophylaxis. CODE STATUS: Full code. Zelalem Brambila MD MTDD
[2018-12-12 08:51] VITALS: RESP 18
[2018-12-12] MEDS: Multivitamin Vitamin B Complex (Nephro-Vite) Tab PO SCH (11:14)
--- NOTE | 2018-12-12 11:52 | PN ---
DATE: 12/12/2018 LOCATION: The patient is a 63-year-old female on room 577, bed 1. SUBJECTIVE: She has mild osteoarthritis of the left knee. She feels somewhat better after cortisone injection. I do not need to do anymore because been on dialysis chance on infection, so I am going to depend on physical therapy. When she gets as an outpatient, we give the flexor injections and hopefully the dialysis will make feel stronger, but in the meantime, we will help her muscle weakness by doing bedside physical therapy, quadriceps straight leg raising, ambulation with walker and follow her as needed. Rocco Fountain DO
--- NOTE | 2018-12-12 15:17 | CARD ---
APPROVED REPORT Date of service: 12/12/2018 EKG Measurement Heart [id number] <Conclusion> Baseline artifact Atrial fibrillation with premature ventricular or aberrantly conducted complexes Cannot rule out Anterior infarct, age undetermined ST & T wave abnormality, consider lateral ischemia or digitalis effect Abnormal ECG
[2018-12-12 16:37] VITALS: BP 107/67; PULSE 88; TEMP 98.4; O2SAT 97
--- NOTE | 2018-12-12 20:40 | CP.PCM.PN ---
Subjective - Date & Time of Evaluation Date of Evaluation: 12/12/18 Time of Evaluation: 11:00 - Subjective Subjective: RENAL seen and examined O: vs reviewed gen: nad sclera: anicteric op: clear neck: supple cv: +S1+s2 no rub abd soft nt nd no organomegaly lungs: reduced bs at bases ext: no edema neuro: no asterixis a+ Ox3 psych: flat imp: ARF /Cirrhosis/ Anemia/ acidosis/ leg pain/ hyperphosphatemia/pulm htn plan: CHARLIE on TTS schedule sever pHTN on echo started on aranesp for anemia serologic studies reviewed renal us reviewed continue renvela for discharge to [facility] for rehab and hd while there d/w bedside nurse and social science professor Objective - Vital Signs/Intake and Output Vital Signs (last 24 hours): Temp Pulse Resp BP Pulse Ox 98.4 F 88 18 107/67 97 12/12/18 14:00 12/12/18 14:00 12/12/18 14:00 12/12/18 14:00 12/12/18 14:00 Intake and Output: 12/12/18 12/13/18 18:59 06:59 Intake Total 600 Balance 600 - Labs Labs: 12/12/18 07:00 12/12/18 07:00 PT 12.3 SECONDS (9.4-12.5) 12/08/18 13:00 INR 1.11 12/08/18 13:00 APTT 31.3 Seconds (26.9-38.3) 12/08/18 13:00
== END 2018-12-12 17:27 | DRG 674 ==
LOC: ED 13:18 → ERH 17:16 → 5RSO 19:56
PROVIDERS: ADMIT Internal Medicine; ATTEND Internal Medicine
PROC: 0JH63XZ Insertion of Tunneled Vascular Access Device into Chest Subcutaneous Tissue and Fascia, Percutaneous Approach (ICD-10-PCS; principal; 2018-12-09)
PROC: 02H633Z Insertion of Infusion Device into Right Atrium, Percutaneous Approach (ICD-10-PCS; 2018-12-09)
PROC: B214YZZ Fluoroscopy of Right Heart using Other Contrast (ICD-10-PCS; 2018-12-09)
PROC: 5A1D70Z Performance of Urinary Filtration, Intermittent, Less than 6 Hours Per Day (ICD-10-PCS; 2018-12-09)
PROC: 5A1D70Z Performance of Urinary Filtration, Intermittent, Less than 6 Hours Per Day (ICD-10-PCS; 2018-12-10)
PROC: 5A1D70Z Performance of Urinary Filtration, Intermittent, Less than 6 Hours Per Day (ICD-10-PCS; 2018-12-12)
DX: N17.9 Acute kidney failure, unspecified (principal); I13.2 Hypertensive heart and chronic kidney disease with heart failure and with stage 5 chronic kidney disease, or end stage renal disease; N18.6 End stage renal disease; K76.6 Portal hypertension; I42.0 Dilated cardiomyopathy; E87.2 Acidosis; K70.30 Alcoholic cirrhosis of liver without ascites; F10.20 Alcohol dependence, uncomplicated; S30.0XXA Contusion of lower back and pelvis, initial encounter; S70.12XA Contusion of left thigh, initial encounter; I48.2 Chronic atrial fibrillation; I34.0 Nonrheumatic mitral (valve) insufficiency; I50.9 Heart failure, unspecified; I27.20 Pulmonary hypertension, unspecified; I48.0 Paroxysmal atrial fibrillation; D50.9 Iron deficiency anemia, unspecified; M17.12 Unilateral primary osteoarthritis, left knee; E03.9 Hypothyroidism, unspecified; W19.XXXA Unspecified fall, initial encounter; K31.89 Other diseases of stomach and duodenum; E83.39 Other disorders of phosphorus metabolism; Y92.009 Unspecified place in unspecified non-institutional (private) residence as the place of occurrence of the external cause; Z87.891 Personal history of nicotine dependence